=== PATIENT | male | born 1935 | race Caucasian/White ===

== ENCOUNTER → 2016-11-17 | Outpatient (CLI) | payer OTHER, MEDICARE ==
[~2016-11-17] MED LIST: ALBUAER9 INH; AMLO-110 PO; ATOR-24 PO; CLOP1TAB15 PO; CLX/20 PO; DOCU1TAB6 PO; FINA5TAB4 PO; FURO40TA3 PO; HYDR-4717 PO; LISI40TA PO; METO100T14 PO; OMEG10007 PO; PANT40TA PO; SENN-104 PO; SYMIN160 INH; TERA5CAP PO
[2016-11-17 17:02] LABS: URINE APPEARANCE CLEAR (CLEAR); URINE BILIRUBIN NEG (NEG); URINE COLOR YELLOW; URINE EPITHELIAL CELL AUTO 0-5 /lpf (0-5); URINE NITRITE NEG (NEG); URINE SPECIFIC GRAVITY 1.012 (1.000-1.030); UROBILINOGEN NEG (NEG)
[2016-11-17 17:05] LABS: MANUAL MICROSCOPIC REQUIRED? NO; REVIEW REQ? NO
[2016-11-18 05:29] LABS: ESTIMATED AVERAGE GLUCOSE 114 mg/dl; HA1C FLAG Normal (Normal)
--- NOTE | 2016-11-22 09:52 | CODING QUERY MEDICAL NECESSITY ---
SUPPORTING DIAGNOSIS NEEDED A supporting diagnosis is required for the test/procedure performed on this patient in order for us to be reimbursed by the patient's insurance. Please provide a supporting diagnosis for the following test/procedure listed below next to the test name along with your signature. *If there is no additional diagnosis for this patient that would support the following test/procedure please document that below next to the test/procedure. Test(s)/Procedure(s) that require a supporting diagnosis: * GLYCATED HEMOGLOBIN DIAGNOSIS: * DOS: 11/17/16 Provider Signature: Date: Thank you Janet Verma Health Information Management Once completed, please kindly fax back to [phone] For questions please call [phone]
== END | disposition home or self-care (01) ==
LOC: C.LABBC 14:08
PROVIDERS: ATTEND Family Medicine
DX: N50.812 Left testicular pain (principal); M79.605 Pain in left leg; R73.03 Prediabetes

== ENCOUNTER → 2016-11-18 | Outpatient (CLI) | payer OTHER, MEDICARE ==
--- NOTE | 2016-11-18 10:39 | DIAGNOSTIC IMAGING REPORT ---
TESTICULAR ULTRASOUND. CLINICAL HISTORY: Left testicular pain COMPARISON STUDY: No previous studies for comparison. FINDINGS: The right testis measures 36 x 26 x 20 mm. The left testis measures 38 x 34 x 27 mm. There is no evidence of testicular torsion. 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 There is a 6 mm right-sided epididymal cyst. There is a 4 mm left-sided epididymal cyst. There is a moderate to large left-sided hydrocele. IMPRESSION: 1. No evidence of testicular torsion 2. Moderate to large left-sided hydrocele 3. 1 cm right-sided intratesticular cyst Electronically signed by: Monty Veloz M.D. 11/18/2016 10:38 AM Dictated Date/Time: 11/18/2016 10:34 AM
== END | disposition home or self-care (01) ==
LOC: C.ULTRBC 09:35
PROVIDERS: ATTEND Family Medicine
DX: N50.812 Left testicular pain (principal); N43.3 Hydrocele, unspecified; N44.2 Benign cyst of testis

== ENCOUNTER → 2016-12-13 | Outpatient (CLI) | payer OTHER, MEDICARE ==
[~2016-12-13] MED LIST changes: +ACET-1256 PO; +CHOL100027 PO; +METO50TA16 PO; +MIRT15TA PO; +POTA20TA16 PO; +PRLSR20 PO; +PRT/20 PO; +SENN-61 PO; +TAMS0.4C38 PO; +WLL100 PO
--- NOTE | 2016-12-13 11:27 | DIAGNOSTIC IMAGING REPORT ---
CHEST 2 VIEWS ROUTINE HISTORY: SLEEP APNEA COMPARISON: Chest 10/22/2015. Chest CT 12/16/2015. FINDINGS: The heart remains mildly enlarged. Poststernotomy changes. No focal lung consolidations to suggest pneumonia. No evidence for pulmonary edema. No pleural effusions. No pneumothorax. IMPRESSION: Stable mild cardiomegaly Electronically signed by: Lalo Dunham M.D. 12/13/2016 11:26 AM Dictated Date/Time: 12/13/2016 11:23 AM
== END | disposition home or self-care (01) ==
LOC: C.RADBBURG 00:25
PROVIDERS: ATTEND Physician Assistant
DX: G47.30 Sleep apnea, unspecified (principal)

== ENCOUNTER → 2017-03-03 | Outpatient (CLI) | payer OTHER, MEDICARE ==
[~2017-03-03] MED LIST changes: +CIPR-255 PO; +METR500T PO; +OXYC-57 PO
[2017-03-03 15:01] LABS: CHOLESTEROL/HDL RATIO 6.4
== END | disposition home or self-care (01) ==
LOC: C.LAB1850 12:28
PROVIDERS: ATTEND Internal Medicine Cardiovascular Disease
DX: E78.00 Pure hypercholesterolemia, unspecified (principal)

== ENCOUNTER 2017-08-15 21:00 | Emergency (ER) | payer OTHER, MEDICARE ==
[~2017-08-15] VITALS: Ht 177.8 cm; Wt 109.7 kg
[~2017-08-15 21:00] MED LIST changes: -ACET-1256 PO; -CHOL100027 PO; -CIPR-255 PO; -METO50TA16 PO; -METR500T PO; -MIRT15TA PO; -OXYC-57 PO; -POTA20TA16 PO; -PRLSR20 PO; -PRT/20 PO; -SENN-61 PO; -TAMS0.4C38 PO; -WLL100 PO
[2017-08-15 21:14] VITALS: TEMP 37.3; Ht 177.8 cm; Wt 109.7 kg
[2017-08-15 22:12] LABS: BASO % 0.4 %; BASO ABS # 0.05 K/uL (0-0.2); COMPLETE YES; EOS % 2.1 %; HEMATOCRIT 34.9 % (42-52); IG% 0.3 %; LYMPH % 18.3 %; LYMPH ABS # 2.29 K/uL (1.2-3.4); MEAN CELL VOLUME 89.5 fL (80-100); MEAN CORPUSCULAR HEMOGLOBIN 29.5 pg (25-34); MEAN PLATELET VOLUME 9.2 fL (7.4-10.4); MONO % 13.9 %; PLATELET COUNT 264 K/uL (130-400); WHITE BLOOD COUNT 12.52 K/uL (4.8-10.8)
[2017-08-15 22:30] LABS: BUN/CREATININE RATIO 13.4 (10-20); CREATININE 1.53 mg/dl (0.60-1.40); POTASSIUM 3.6 mmol/L (3.5-5.1)
[2017-08-15 22:43] LABS: MANUAL MICROSCOPIC REQUIRED? NO; REVIEW REQ? NO; URINE APPEARANCE CLOUDY (CLEAR); URINE BILIRUBIN NEG (NEG); URINE COLOR YELLOW; URINE NITRITE NEG (NEG); URINE SPECIFIC GRAVITY 1.029 (1.000-1.030); UROBILINOGEN NEG (NEG); ZZUR CULT IF INDIC CLEAN CATCH NO
[2017-08-15] MEDS ORDERED: PRT/20 PO (23:21)
[2017-08-15] MEDS ORDERED: METO50TA16 PO (23:21)
[2017-08-15] MEDS ORDERED: TAMS0.4C38 PO (23:21)
[2017-08-15] MEDS ORDERED: SENN-61 PO (23:23)
[2017-08-15] MEDS ORDERED: WLL100 PO (23:23)
[2017-08-15] MEDS ORDERED: PRLSR20 PO (23:23)
[2017-08-15] MEDS ORDERED: MIRT15TA PO (23:23)
[2017-08-15] MEDS ORDERED: CHOL100027 PO (23:23)
--- NOTE | 2017-08-15 23:52 | EMERGENCY ROOM VISIT NOTE ---
History Report prepared by Rachelleibverenice: Amilcar Hughes Under the Supervision of: Dr. Ammon Jones D.O. First contact with patient: 21:41 Chief Complaint: URINARY SYMPTOMS Stated Complaint: CANT PEE (IS RED),FEVER,HEMORRHOIDS Nursing Triage Summary: Pt states that he was unable to urinate last evening. Pt woke up this morning and his urine was a dark orange color. Pt does have an enlarged prostate. Pt states that when he tries to urinate he is unable to and if he starts he feels that he is retaining History of Present Illness The patient is a 81 year old male who presents to the Emergency Room with complaints of persistent inability to urinate. He was unable to urinate last night, and has only been able to urinate a very small amount today. He also complains of orange colored urine with the urine he was able to produce. The patient has a history of enlarged prostate. He notes that he has a history of a hemorrhoid, but denies any problems with diarrhea or constipation. Source of History: patient Onset: Last night Quality: other (inability to urinate) Timing: other (persistent) Associated Symptoms: + urinary symptoms (orange colored urine), No diarrhea Note: The patient denies constipation. Review of Systems See HPI for pertinent positives and negatives. A total of ten systems were reviewed and were otherwise negative. Past Medical & Surgical Medical Problems: (1) Asthma (2) Benign hypertension (3) Chest Pain Nec (4) Congestive heart failure (CHF) (5) Coron Atheroscler Nos Type Vessel, Kiana Or Graft (6) Coronary artery disease (7) CVA (8) Diabetes mellitus (9) Heart attack (10) Hernia repair (11) Hypertension Nos (12) Low back surgery (13) Myocardial infarction (14) Right upper lobe pneumonia (15) Stroke Surgical Problems: (1) Hx of CABG Family History Cancer Diabetes mellitus Heart disease Hypertension Kidney disease Stroke Social History Smoking Status: Never Smoker Alcohol Use: none Drug Use: none Marital Status: Housing Status: lives with significant other Occupation Status: retired Current/Historical Medications Scheduled Amlodipine (Norvasc), 5 MG PO BID Atorvastatin (Lipitor), 40 MG PO HS Bupropion HCl (Bupropion HCl), 100 MG PO DAILY Cholecalciferol (Vitamin D 1000 Unit), 1,000 INTER.UNIT PO DAILY Clopidogrel (Plavix), 75 MG PO DAILY Docusate Sodium (Docusate Sodium), 100 MG PO BID Finasteride (Proscar), 5 MG PO QPM Furosemide (Lasix), 40 MG PO QAM Hydralazine Hcl (Apresoline), 50 MG PO TID Lisinopril (Zestril), 40 MG PO HS Metoprolol Tartrate (Lopressor) (Lopressor), 50 MG PO BID Mirtazapine (Remeron), 15 MG PO HS Omeprazole (Prilosec), 20 MG PO DAILY Senna (Senokot), 1 TAB PO HS Tamsulosin Hcl (Flomax), 0.4 MG PO DAILY Allergies Coded Allergies: Statins (Verified Allergy, Unknown, UNKNOWN, PER DR. MARINELLI, 08/15/17) Sulfacetamide (Verified Allergy, Unknown, swelling, 08/15/17) opthalmic soln. Ibuprofen (Verified Adverse Reaction, Intermediate, HTN, 08/15/17) Physical Exam Vital Signs Date Time Temp Pulse Resp B/P (MAP) Pulse Ox O2 Delivery O2 Flow Rate FiO2 08/15/17 21:59 84 08/15/17 21:14 37.3 83 18 187/81 92 Room Air Physical Exam GENERAL: Awake, alert, well-appearing, in no distress HENT: Normocephalic, atraumatic. Oropharynx unremarkable. EYES: Normal conjunctiva. Sclera non-icteric. NECK: Supple. No nuchal rigidity. FROM. No JVD. RESPIRATORY: Clear to auscultation. CARDIAC: Regular rate, normal rhythm. Extremities warm and well perfused. Pulses equal. ABDOMEN: Soft, with no palpable distension in the suprapubic region. No tenderness to palpation. No rebound or guarding. No masses. RECTAL: Deferred. MUSCULOSKELETAL: Chest examination reveals no tenderness. The back is symmetrical on inspection without obvious abnormality. There is no CVA tenderness to palpation. No joint edema. LOWER EXTREMITIES: Calves are equal size bilaterally and non-tender. No edema. No discoloration. NEURO: Normal sensorium. No sensory or motor deficits noted. SKIN: No rash or jaundice noted. Medical Decision & Procedures Laboratory Results 08/15/17 22:00 Red Blood Count 3.90, Mean Corpuscular Volume 89.5, Mean Corpuscular Hemoglobin 29.5, Mean Corpuscular Hemoglobin Concent 33.0, Mean Platelet Volume 9.2, Neutrophils (%) (Auto) 65.0, Lymphocytes (%) (Auto) 18.3, Monocytes (%) (Auto) 13.9, Eosinophils (%) (Auto) 2.1, Basophils (%) (Auto) 0.4, Neutrophils # (Auto ) 8.14, Lymphocytes # (Auto) 2.29, Monocytes # (Auto) 1.74, Eosinophils # (Auto ) 0.26, Basophils # (Auto) 0.05 08/15/17 22:00 Test 08/15/17 22:00 08/15/17 22:31 White Blood Count 12.52 K/uL (4.8-10.8) Red Blood Count 3.90 M/uL (4.7-6.1) Hemoglobin 11.5 g/dL (14.0-18.0) Hematocrit 34.9 % (42-52) Mean Corpuscular Volume 89.5 fL (80-100) Mean Corpuscular Hemoglobin 29.5 pg (25-34) Mean Corpuscular Hemoglobin Concent 33.0 g/dl (32-36) Platelet Count 264 K/uL (130-400) Mean Platelet Volume 9.2 fL (7.4-10.4) Neutrophils (%) (Auto) 65.0 % Lymphocytes (%) (Auto) 18.3 % Monocytes (%) (Auto) 13.9 % Eosinophils (%) (Auto) 2.1 % Basophils (%) (Auto) 0.4 % Neutrophils # (Auto) 8.14 K/uL (1.4-6.5) Lymphocytes # (Auto) 2.29 K/uL (1.2-3.4) Monocytes # (Auto) 1.74 K/uL (0.11-0.59) Eosinophils # (Auto) 0.26 K/uL (0-0.5) Basophils # (Auto) 0.05 K/uL (0-0.2) RDW Standard Deviation 43.8 fL (36.4-46.3) RDW Coefficient of Variation 13.4 % (11.5-14.5) Immature Granulocyte % (Auto) 0.3 % Immature Granulocyte # (Auto) 0.04 K/uL (0.00-0.02) Anion Gap 7.0 mmol/L (3-11) Est Creatinine Clear Calc Drug Dose 48.6 ml/min Estimated GFR () 49.4 Estimated GFR (Non- 42.6 BUN/Creatinine Ratio 13.4 (10-20) Calcium Level 9.0 mg/dl (8.5-10.1) Total Bilirubin 0.6 mg/dl (0.2-1) Direct Bilirubin 0.2 mg/dl (0-0.2) Aspartate Amino Transf (AST/SGOT) 17 U/L (15-37) Alanine Aminotransferase (ALT/SGPT) 37 U/L (12-78) Alkaline Phosphatase 99 U/L (45-117) Total Protein 7.6 gm/dl (6.4-8.2) Albumin 3.2 gm/dl (3.4-5.0) Urine Color YELLOW Urine Appearance CLOUDY (CLEAR) Urine pH 5.0 (4.5-7.5) Urine Specific [place] 1.029 (1.000-1.030) Urine Protein 1+ (NEG) Urine Glucose (UA) 3+ (NEG) Urine Ketones TRACE (NEG) Urine Occult Blood NEG (NEG) Urine Nitrite NEG (NEG) Urine Bilirubin NEG (NEG) Urine Urobilinogen NEG (NEG) Urine Leukocyte Esterase NEG (NEG) Urine WBC (Auto) 1-5 /hpf (0-5) Urine RBC (Auto) 0-4 /hpf (0-4) Urine Hyaline Casts (Auto) 1-5 /lpf (0-5) Urine Epithelial Cells (Auto) 10-20 /lpf (0-5) Urine Bacteria (Auto) NEG (NEG) Laboratory results reviewed by ak ED Course 2145: The patient was evaluated in room A12B. A complete history and physical exam was performed. 2345: I reevaluated the patient. Discussed results and discharge instructions: he verbalized understanding and agreement. The patient is ready for discharge. Medical Decision Differential diagnoses include but are not limited to; urinary retention, UTI, renal insufficiency, prostate problems. Patient had 600 mL's of urine out after Be was placed. Patient urinalysis did not reveal infection patient has no significant increase in creatinine has a normal white blood cell count. I have given the patient a choice of bleeding Be catheter remain or discharge in the catheter he will like to try it out. Instructed to follow-up with primary care physician and potential referral to urology. Answered all questions for the patient and the patient's family at bedside Medication Reconcilliation Current Medication List: was personally reviewed by me Blood Pressure Screening Patient's blood pressure: Elevated blood pressure Blood pressure disposition: Referred to PCP Impression Primary Impression: Urinary retention Scribe Attestation The scribe's documentation has been prepared under my direction and personally reviewed by me in its entirety. I confirm that the note above accurately reflects all work, treatment, procedures, and medical decision making performed by me. Departure Information Dispostion Home / Self-Care Referrals No Doctor, Assigned (PCP) Patient Instructions ED Retention Urinary Male, My [facility]
[2017-08-16 00:13] VITALS: BP 164/84; PULSE 81; O2SAT 94
[2017-08-16] MEDS ORDERED: ACET-1256 PO (17:39)
[2017-08-16] MEDS ORDERED: POTA20TA16 PO (17:39)
[2017-08-16] MEDS ORDERED: SENN-61 PO (17:39)
== END 2017-08-16 00:15 | disposition home or self-care (01) ==
LOC: C.EDB 21:01 → C.EDA 08-16 00:15
DX: R33.9 Retention of urine, unspecified (principal); I11.0 Hypertensive heart disease with heart failure; I50.9 Heart failure, unspecified; J45.909 Unspecified asthma, uncomplicated; I25.10 Atherosclerotic heart disease of native coronary artery without angina pectoris; E11.9 Type 2 diabetes mellitus without complications; I25.2 Old myocardial infarction; Z86.73 Personal history of transient ischemic attack (TIA), and cerebral infarction without residual deficits; Z87.01 Personal history of pneumonia (recurrent); Z95.1 Presence of aortocoronary bypass graft; Z83.3 Family history of diabetes mellitus; Z82.49 Family history of ischemic heart disease and other diseases of the circulatory system; Z84.1 Family history of disorders of kidney and ureter; Z82.3 Family history of stroke

== ENCOUNTER 2017-08-16 15:59 | Observation (INO) | payer OTHER, MEDICARE ==
[~2017-08-16] VITALS: Ht 175.3 cm; Wt 109.5 kg
[~2017-08-16 15:59] MED LIST changes: -ALBUAER9 INH; +CHOL100027 PO; -CLX/20 PO; -METO100T14 PO; +METO50TA16 PO; +MIRT15TA PO; -OMEG10007 PO; -PANT40TA PO; +PRLSR20 PO; -SENN-104 PO; +SENN-61 PO; -SYMIN160 INH; +TAMS0.4C38 PO; -TERA5CAP PO; +WLL100 PO
[2017-08-16] MEDS ORDERED: LIDOCAINE HCL 2% JELLY 30 ML TUBE EXT ONE (17:15)
[2017-08-16 17:36] LABS: BASO % 0.4 %; BASO ABS # 0.05 K/uL (0-0.2); COMPLETE YES; EOS % 1.2 %; HEMATOCRIT 35.7 % (42-52); IG% 0.4 %; LYMPH % 14.2 %; LYMPH ABS # 1.93 K/uL (1.2-3.4); MEAN CELL VOLUME 88.8 fL (80-100); MEAN CORPUSCULAR HEMOGLOBIN 29.9 pg (25-34); MEAN CORPUSCULAR HGB CONC 33.6 g/dl (32-36); MEAN PLATELET VOLUME 9.1 fL (7.4-10.4); MONO % 10.9 %; NEUT % 72.9 %; PLATELET COUNT 276 K/uL (130-400); RED BLOOD COUNT 4.02 M/uL (4.7-6.1); WHITE BLOOD COUNT 13.61 K/uL (4.8-10.8)
[2017-08-16] MEDS ORDERED: POTA20TA16 PO (17:39)
[2017-08-16] MEDS ORDERED: ACET-1256 PO (17:39)
[2017-08-16] MEDS ORDERED: SENN-61 PO (17:39)
[2017-08-16 17:53] LABS: BUN/CREATININE RATIO 13.1 (10-20); CALCIUM 9.3 mg/dl (8.5-10.1); CREATININE 1.35 mg/dl (0.60-1.40); POTASSIUM 3.6 mmol/L (3.5-5.1)
[2017-08-16 17:56] LABS: ALB/GLOB RATIO 0.7 (0.9-2)
[2017-08-16 18:05] LABS: URINE APPEARANCE CLEAR (CLEAR); URINE BILIRUBIN NEG (NEG); URINE COLOR YELLOW; URINE EPITHELIAL CELL AUTO 0-5 /lpf (0-5); URINE NITRITE NEG (NEG); URINE SPECIFIC GRAVITY 1.024 (1.000-1.030); UROBILINOGEN NEG (NEG)
[2017-08-16 18:21] LABS: MANUAL MICROSCOPIC REQUIRED? NO; REVIEW REQ? NO
--- NOTE | 2017-08-16 18:59 | EMERGENCY ROOM VISIT NOTE ---
History First contact with patient: 16:48 Chief Complaint: URINARY SYMPTOMS Stated Complaint: UNABLE TO URINATE Nursing Triage Summary: patient was seen last evening for inablitiy to void and cathed. lewis discontinued and sent home. now unable to void again and has fever History of Present Illness The patient is a 81 year old male who presents to the Emergency Room with complaints of urinary retention. He was seen yesterday evening for the same complaint and elected for a straight catheter rather than a lewis. However he has only managed to pass 125ml of urine since discharge despite drinking lots of fluid and taking his Lasix. After the straight cath he has now been having painful urination. He denies any blood in urine, change in color or smell. He denies any suprapubic pain or distension. He thinks he has been on tamsulosin for many years but is unsure what prostate problems he has had before in the past. He does have back pain but this appears to have been present for the past 2 months. Over the past 2 weeks it has been harder to pass urine. He has been having fevers/chills for the past 4 days. He denies any family history of prostate cancer or personal history of diverticulitis before in the past. Review of Systems He denies any abdominal pain, nausea, vomiting or diarrhea. He has been having increasing hard stool with some straining over months and has hemorrhoids (pain on defecation) which he has been using preparation H. He has found it difficult to sit down without it being painful. 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 (6) Coronary artery disease (7) CVA (8) Diabetes mellitus (9) Heart attack (10) Hernia repair (11) Hypertension Nos (12) Low back surgery (13) Myocardial infarction (14) Right upper lobe pneumonia (15) Stroke Surgical Problems: (1) Hx of CABG Family History Cancer Diabetes mellitus Heart disease Hypertension Kidney disease Stroke Social History Smoking Status: Never Smoker Alcohol Use: none Drug Use: none Marital Status: Housing Status: lives with significant other Occupation Status: retired Current/Historical Medications Scheduled Acetaminophen (Tylenol), 1,000 MG PO QAM Amlodipine (Norvasc), 5 MG PO BID Atorvastatin (Lipitor), 40 MG PO Q2D Bupropion HCl (Bupropion HCl), 100 MG PO DAILY Cholecalciferol (Vitamin D 1000 Unit), 1,000 INTER.UNIT PO DAILY Clopidogrel (Plavix), 75 MG PO DAILY Docusate Sodium (Docusate Sodium), 100 MG PO BID Finasteride (Proscar), 5 MG PO QPM Furosemide (Lasix), 40 MG PO QAM Hydralazine Hcl (Apresoline), 50 MG PO TID Lisinopril (Zestril), 40 MG PO HS Metoprolol Tartrate (Lopressor) (Lopressor), 50 MG PO BID Mirtazapine (Remeron), 15 MG PO HS Omeprazole (Prilosec), 20 MG PO DAILY Potassium Ext Rel (Klor-Con), 20 MEQ PO DAILY Senna (Senokot), 1 TAB PO HS Senna (Senokot), 17.2 MG PO DAILY Tamsulosin Hcl (Flomax), 0.4 MG PO DAILY Physical Exam Vital Signs Date Time Temp Pulse Resp B/P (MAP) Pulse Ox O2 Delivery O2 Flow Rate FiO2 08/16/17 21:41 87 18 164/71 94 08/16/17 21:32 37.3 87 18 164/71 94 Room Air 08/16/17 20:57 89 18 160/75 93 Room Air 08/16/17 19:00 38.6 80 20 180/75 95 Room Air 08/16/17 16:11 37.6 87 20 208/76 98 Room Air Physical Exam General Appearance: WD/WN, no apparent distress, + obese Head: normocephalic, atraumatic Eyes: normal inspection, PERRL, EOMI ENT: pharynx normal (moist mucus membranes) Neck: supple, no JVD (difficult to assess given neck size), trachea midline Respiratory/Chest: chest non-tender, lungs clear, normal breath sounds, no respiratory distress, no accessory muscle use Cardiovascular: regular rate, rhythm, no edema, no murmur, normal peripheral pulses Abdomen / GI: normal bowel sounds, non tender (obese but non distended), soft, + pertinent finding (Prostate examination performed with verbal consent, RN as chapmerrill, before patient had a CT scan, external skin tags present, no external hemorrhoids, non painful examination, base of prostate only palpated which was non tender, after CT results were available fluctuant mass on left buttocks was paindul to light palpation, surrounding dark warm skin) Genitourinary - Male: + pertinent finding (large hernia in testicle noted, non tender on palpation, patient reports chronic for years) Back: no CVA tenderness Extremities: no calf tenderness, normal capillary refill, no pedal edema Neurologic/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 Perianal abscess. FINDINGS: 2 AP, portable, upright chest radiographs are compared to study dated 12/13/2016 and correlated with chest CT dated 12/16/2015. The examination is degraded by portable technique, apical lordotic positioning, and patient rotation. The patient is status post midline sternotomy. The heart is enlarged and there is atherosclerotic calcification of the thoracic aorta. The pulmonary vasculature is noncongested. Trace fluid is suggested along the fissures. No large pleural effusion is identified and there is no airspace consolidation typical for pneumonia. Atelectasis is seen at the left lung base. No pneumothorax is seen. The skeletal structures are osteopenic. Advanced degenerative change is seen in the shoulders and thoracic spine. IMPRESSION: 1. Cardiomegaly without radiographic evidence of congestive failure. 2. No airspace consolidation is identified typical for pneumonia there is no large pleural effusion. Electronically signed by: Lukas Sun M.D. 08/16/2017 9:44 PM Dictated Date/Time: 08/16/2017 9:[address] SCAN OF THE ABDOMEN AND PELVIS WITHOUT IV CONTRAST CLINICAL HISTORY: Fever. Urinary retention. COMPARISON STUDY: Abdominal CT dated 04/28/2013. TECHNIQUE: CT scan of the abdomen and pelvis is performed from the lung bases to the proximal femora. Images are reviewed in the axial, sagittal, and coronal planes. IV contrast was not administered for this examination as per the referring clinician. Note that the examination was performed in suboptimal fashion without oral and IV contrast. A dose lowering technique was utilized adhering to the principles of ALARA. CT DOSE: 2225.64 mGycm FINDINGS: Lung bases: The patient is status post midline sternotomy. The heart is normal in size and without pericardial effusion. There are coronary artery calcifications. There is no airspace consolidation or pleural effusion. Numerous calcified granulomas are seen at the lung bases. There are foci of bibasilar scarring versus atelectasis. A small hiatal hernia is identified. Liver: The unenhanced liver is normal in size, contour, and attenuation. There is no intrahepatic biliary ductal dilatation. Gallbladder: Unremarkable. Spleen: Normal in size and attenuation. Pancreas: The unenhanced pancreas is atrophic and grossly unremarkable. Adrenal glands: Unremarkable. Kidneys: The unenhanced kidneys are atrophic and without hydronephrosis. There are no renal calculi identified. There is no evidence of contour deforming renal mass lesion. Abdominal vasculature: The abdominal aorta is normal in course and caliber noting advanced atherosclerotic calcification. Bowel: The small bowel and colon are normal in course and caliber. The appendix is well-visualized and normal. Peritoneum: There is no intraperitoneal free air or abdominal ascites. There is a small fat-containing umbilical hernia. Lymphadenopathy: None. Pelvic viscera: The prostate gland is normal in size, measuring 4.5 cm in transverse diameter. The bladder is decompressed around a Lewis catheter and not well evaluated. Foci of intraluminal gas are likely related to instrumentation. There is a small fat-containing left inguinal hernia. There is an approximately 4 x 2 cm left perianal fluid collection identified, best seen on axial image #494. This extends from the 1:00 to the 6:00 positions, and likely represents an abscess. Surrounding inflammatory change likely represents cellulitis. No definite fistulous tract is identified. Skeletal structures: The skeletal structures are osteopenic. There is mild to moderate lumbosacral spondylosis. No lytic or blastic lesions are seen. IMPRESSION: 1. Suboptimal examination without oral and IV contrast. 2. There is an approximately 4 x 2 cm left sided perianal fluid collection typical in appearance for perianal abscess. Mild overlying inflammatory change likely represents cellulitis. 3. No acute infectious or inflammatory findings are seen in the abdomen. 4. Additional findings as above. Electronically signed by: Lukas Sun M.D. 08/16/2017 7:51 PM Dictated Date/Time: 08/16/2017 7:44 PM Laboratory Results 08/16/17 17:20 Red Blood Count 4.02, Mean Corpuscular Volume 88.8, Mean Corpuscular Hemoglobin 29.9, Mean Corpuscular Hemoglobin Concent 33.6, Mean Platelet Volume 9.1, Neutrophils (%) (Auto) 72.9, Lymphocytes (%) (Auto) 14.2, Monocytes (%) (Auto) 10.9, Eosinophils (%) (Auto) 1.2, Basophils (%) (Auto) 0.4, Neutrophils # (Auto ) 9.91, Lymphocytes # (Auto) 1.93, Monocytes # (Auto) 1.49, Eosinophils # (Auto ) 0.17, Basophils # (Auto) 0.05 08/16/17 17:20 Test 08/16/17 17:20 08/16/17 17:35 08/16/17 21:08 White Blood Count 13.61 K/uL (4.8-10.8) Red Blood Count 4.02 M/uL (4.7-6.1) Hemoglobin 12.0 g/dL (14.0-18.0) Hematocrit 35.7 % (42-52) Mean Corpuscular Volume 88.8 fL (80-100) Mean Corpuscular Hemoglobin 29.9 pg (25-34) Mean Corpuscular Hemoglobin Concent 33.6 g/dl (32-36) Platelet Count 276 K/uL (130-400) Mean Platelet Volume 9.1 fL (7.4-10.4) Neutrophils (%) (Auto) 72.9 % Lymphocytes (%) (Auto) 14.2 % Monocytes (%) (Auto) 10.9 % Eosinophils (%) (Auto) 1.2 % Basophils (%) (Auto) 0.4 % Neutrophils # (Auto) 9.91 K/uL (1.4-6.5) Lymphocytes # (Auto) 1.93 K/uL (1.2-3.4) Monocytes # (Auto) 1.49 K/uL (0.11-0.59) Eosinophils # (Auto) 0.17 K/uL (0-0.5) Basophils # (Auto) 0.05 K/uL (0-0.2) RDW Standard Deviation 42.6 fL (36.4-46.3) RDW Coefficient of Variation 13.1 % (11.5-14.5) Immature Granulocyte % (Auto) 0.4 % Immature Granulocyte # (Auto) 0.06 K/uL (0.00-0.02) Anion Gap 7.0 mmol/L (3-11) Est Creatinine Clear Calc Drug Dose 54.8 ml/min Estimated GFR () 57.5 Estimated GFR (Non- 49.6 BUN/Creatinine Ratio 13.1 (10-20) Calcium Level 9.3 mg/dl (8.5-10.1) Total Bilirubin 1.0 mg/dl (0.2-1) Aspartate Amino Transf (AST/SGOT) 23 U/L (15-37) Alanine Aminotransferase (ALT/SGPT) 42 U/L (12-78) Alkaline Phosphatase 102 U/L (45-117) Total Protein 8.2 gm/dl (6.4-8.2) Albumin 3.5 gm/dl (3.4-5.0) Globulin 4.7 gm/dl (2.5-4.0) Albumin/Globulin Ratio 0.7 (0.9-2) Urine Color YELLOW Urine Appearance CLEAR (CLEAR) Urine pH 5.0 (4.5-7.5) Urine Specific [place] 1.024 (1.000-1.030) Urine Protein 1+ (NEG) Urine Glucose (UA) 1+ (NEG) Urine Ketones NEG (NEG) Urine Occult Blood NEG (NEG) Urine Nitrite NEG (NEG) Urine Bilirubin NEG (NEG) Urine Urobilinogen NEG (NEG) Urine Leukocyte Esterase NEG (NEG) Urine WBC (Auto) 1-5 /hpf (0-5) Urine RBC (Auto) 0-4 /hpf (0-4) Urine Hyaline Casts (Auto) 1-5 /lpf (0-5) Urine Epithelial Cells (Auto) 0-5 /lpf (0-5) Urine Bacteria (Auto) NEG (NEG) Lactic Acid Level 0.8 mmol/L (0.4-2.0) Medications Administered Medications (Trade) Dose Ordered Sig/[place] Route Start Time Stop Time Status Last Admin Dose Admin Lidocaine HCl (Xylocaine Jelly 2%) 5 ml NOW ONCE EXT 08/16/17 17:15 08/16/17 17:16 DC 08/16/17 17:41 5 ML Acetaminophen (Tylenol Tab) 650 mg NOW STAT PO 08/16/17 19:02 08/16/17 19:04 DC 08/16/17 19:16 650 MG Ciprofloxacin/ Dextrose (Cipro / D5W) 400 mg NOW STAT IV 08/16/17 19:02 08/16/17 19:04 DC 08/16/17 19:16 400 MG Sodium Chloride 500 ml @ 999 mls/hr Q31M STAT IV 08/16/17 19:04 08/16/17 19:34 DC 08/16/17 19:15 999 MLS/HR Metronidazole (Flagyl / Nss) 500 mg NOW STAT IV 08/16/17 20:18 08/16/17 20:19 DC 08/16/17 21:21 500 MG Sodium Chloride 1,000 ml @ 100 mls/hr Q10H IV 08/16/17 21:00 09/15/17 20:59 08/16/17 21:21 100 MLS/HR ECG Indication: other (fever, pre-op, Hx CABG) Rate (beats per minute): 84 Rhythm: normal sinus Findings: no acute ischemic change Comparison ECG Date: 03 September 2015 Change: No longer having inverted T waves in inferior leads ED Course 16:52 Complete history and physical was performed by myself. 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 Triage Nursing notes reviewed. Additional history obtained from patient, and daughter. The patient's history was concerning for urinary retention Differential diagnosis: Etiologies such as sepsis, UTI, prostatitis, prostate cancer, BPH, pyelonephritis as well as others were entertained. Physical examination: As above. Pertinent findings were perianal pain present on left part of his anus. Vital signs reviewed and revealed mildly elevated temperature and hypertension. ER treatment provided: IV fluid resuscitation with Normal saline solution, 500 mL bolus - due to history of CHF with previous admissions for this, he was not tachycardic therefore did not feel a need to load with multiple liters to avoid pulmonary edema IV fluid hydration with Normal saline solution at 100 mL/hr. Urine cultures were obtained. Blood cultures were not obtained as he did not have a significant temperature on admission Antibiotics: Initially treated with ciprofloxacin for possible urinary source, however after CT results showing perianal abscess metronidazole was added Diagnostics interpretation by me: ECG: as above, ischemic changes previously have now resolved The labs revealed elevated WBC on CBC. Chemistry panel revealed stable Cr and BUN, mild hyponatremia Serum Lactate measurement was 0.8. Imaging studies: Chest xray was performed for pre-op given Hx of pulmonary edema and showed no active disease in the chest. The patient was initially felt to be a non complex case of urinary retention secondary to prostate enlargement. He had failed outpatient treatment after receiving a straight cath performed in the ER the night before. Lewis catheter was ordered on arrival and 1.2 L of urine was initially obtained. He did not have CVA tenderness, his UA was unremarkable however his WBC had been increasing. Prostate exam did not establish any tenderness, although only the base of his prostate could be palpated. Plan was for potential discharge with urine culture ordered still expecting a urine or prostatic source of infection. However he then had a significant temperature in the ER with rigors and therefore decision was to get a CT for stones to rule out pyelonephritis or other source of infection. This showed a perianal abscess. Therefore surgery were consulted and lactic acid was obtained. His care was discussed with Dr Tavarez after his consultation and plan is to go straight to the OR for I&D. Consultation: A consultation was initially placed with [place] [facility] [place] (Dr Paz[place] before the CT was performed. On return of the CT results Surgery was consulted Dr Tavarez who evaluated the patient in the ER and consented the patient for surgery. Dr Tavarez asked for the medicine team to admit the patient under their service therefore he was referred back to [facility] [place] (Dr Paz) for admission. The patient will be taken straight from the ER to the OR for I&D of the abscess. Medication Reconcilliation Current Medication List: was personally reviewed by me Blood Pressure Screening Patient's blood pressure: Elevated blood pressure referred to specialist Impression Primary Impression: Perianal abscess Departure Information Dispostion Being Evaluated By Surgeon Condition FAIR Referrals Дмитрий Shah M.D. (PCP) Patient Instructions My [facility] Resident Tracking Resident Involvement: Resident Care Provided Care Provided: Adult ED
[2017-08-16] MEDS ORDERED: ACETAMINOPHEN 325 MG TAB PO STA (19:02)
[2017-08-16] MEDS ORDERED: CIPROFLOXACIN 400MG / 200ML D5W IV STA (19:02)
[2017-08-16] MEDS ORDERED: SODIUM CHLORIDE 0.9% 500ML 500 ML IV STA (19:04)
--- NOTE | 2017-08-16 19:53 | DIAGNOSTIC IMAGING REPORT ---
CT SCAN OF THE ABDOMEN AND PELVIS WITHOUT IV CONTRAST CLINICAL HISTORY: Fever. Urinary retention. COMPARISON STUDY: Abdominal CT dated 04/28/2013. TECHNIQUE: CT scan of the abdomen and pelvis is performed from the lung bases to the proximal femora. Images are reviewed in the axial, sagittal, and coronal planes. IV contrast was not administered for this examination as per the referring clinician. Note that the examination was performed in suboptimal fashion without oral and IV contrast. A dose lowering technique was utilized adhering to the principles of ALARA. CT DOSE: 2225.64 mGycm FINDINGS: Lung bases: The patient is status post midline sternotomy. The heart is normal in size and without pericardial effusion. There are coronary artery calcifications. There is no airspace consolidation or pleural effusion. Numerous calcified granulomas are seen at the lung bases. There are foci of bibasilar scarring versus atelectasis. A small hiatal hernia is identified. Liver: The unenhanced liver is normal in size, contour, and attenuation. There is no intrahepatic biliary ductal dilatation. Gallbladder: Unremarkable. Spleen: Normal in size and attenuation. Pancreas: The unenhanced pancreas is atrophic and grossly unremarkable. Adrenal glands: Unremarkable. Kidneys: The unenhanced kidneys are atrophic and without hydronephrosis. There are no renal calculi identified. There is no evidence of contour deforming renal mass lesion. Abdominal vasculature: The abdominal aorta is normal in course and caliber noting advanced atherosclerotic calcification. Bowel: The small bowel and colon are normal in course and caliber. The appendix is well-visualized and normal. Peritoneum: There is no intraperitoneal free air or abdominal ascites. There is a small fat-containing umbilical hernia. Lymphadenopathy: None. Pelvic viscera: The prostate gland is normal in size, measuring 4.5 cm in transverse diameter. The bladder is decompressed around a Be catheter and not well evaluated. Foci of intraluminal gas are likely related to instrumentation. There is a small fat-containing left inguinal hernia. There is an approximately 4 x 2 cm left perianal fluid collection identified, best seen on axial image #494. This extends from the 1:00 to the 6:00 positions, and likely represents an abscess. Surrounding inflammatory change likely represents cellulitis. No definite fistulous tract is identified. Skeletal structures: The skeletal structures are osteopenic. There is mild to moderate lumbosacral spondylosis. No lytic or blastic lesions are seen. IMPRESSION: 1. Suboptimal examination without oral and IV contrast. 2. There is an approximately 4 x 2 cm left sided perianal fluid collection typical in appearance for perianal abscess. Mild overlying inflammatory change likely represents cellulitis. 3. No acute infectious or inflammatory findings are seen in the abdomen. 4. Additional findings as above. Electronically signed by: Lukas Sun M.D. 08/16/2017 7:51 PM Dictated Date/Time: 08/16/2017 7:44 PM
[2017-08-16] MEDS ORDERED: METRONIDAZOLE 500MG / 100ML NSS IV STA (20:18)
[2017-08-16] MEDS ORDERED: SODIUM CHLORIDE 0.9% 1000ML 1,000 ML IV SCH (21:00)
[2017-08-16] MEDS ORDERED: BUPIVACAINE/EPINEPHRINE 0.5% MPF 1:200,000 30 ML VIAL ONE (21:19)
--- NOTE | 2017-08-16 21:25 | Surgery Consultation ---
Consultation Date of Consultation: Aug 16, 2017. Attending Physician: History of Present Illness The patient is a 81 year old male who presents to the Emergency Room with complaints of urinary retention. He was here last evening for the same complaint and elected for a straight catheter. He thinks he has been on tamsulosin for many years but is unsure what prostate problems he has had before in the past. He does have back pain but this appears to have been present for the past 2 months. Over the past 2 weeks it has been harder to pass urine. He has been having fevers/chills for the past 4 days. He denies any family history of prostate cancer or personal history of diverticulitis before in the past. I saw pt at ER, pt is still have left perirectal pain with fever, 38.6, pt denies diarrhea, no abdominal pain, Past Medical/Surgical History Medical Problems: (1) Hypoxia Status: Acute (2) Pneumonia Status: Acute (3) Pulmonary edema Status: Acute (4) Urinary retention Status: Acute Family History Cancer Diabetes mellitus Heart disease Hypertension Kidney disease Stroke Social History Smoking Status: Never Smoker Smokeless Tobacco Use: No Alcohol Use: none Drug Use: none Marital Status: Housing Status: lives with significant other Occupation Status: retired Allergies Coded Allergies: Statins (Verified Allergy, Unknown, UNKNOWN, PER DR. MARINELLI, 08/16/17) Sulfacetamide (Verified Allergy, Unknown, swelling, 08/16/17) opthalmic soln. Ibuprofen (Verified Adverse Reaction, Intermediate, HTN, 08/16/17) Home Medications Scheduled Acetaminophen (Tylenol), 1,000 MG PO QAM Amlodipine (Norvasc), 5 MG PO BID Atorvastatin (Lipitor), 40 MG PO Q2D Bupropion HCl (Bupropion HCl), 100 MG PO DAILY Cholecalciferol (Vitamin D 1000 Unit), 1,000 INTER.UNIT PO DAILY Clopidogrel (Plavix), 75 MG PO DAILY Docusate Sodium (Docusate Sodium), 100 MG PO BID Finasteride (Proscar), 5 MG PO QPM Furosemide (Lasix), 40 MG PO QAM Hydralazine Hcl (Apresoline), 50 MG PO TID Lisinopril (Zestril), 40 MG PO HS Metoprolol Tartrate (Lopressor) (Lopressor), 50 MG PO BID Mirtazapine (Remeron), 15 MG PO HS Omeprazole (Prilosec), 20 MG PO DAILY Potassium Ext Rel (Klor-Con), 20 MEQ PO DAILY Senna (Senokot), 1 TAB PO HS Senna (Senokot), 17.2 MG PO DAILY Tamsulosin Hcl (Flomax), 0.4 MG PO DAILY Current Inpatient Medications Current Inpatient Medications Medications (Trade) Dose Ordered Sig/Harlan Route Start Time Stop Time Status Last Admin Dose Admin Sodium Chloride 1,000 ml @ 100 mls/hr Q10H IV 08/16/17 21:00 09/15/17 20:59 Review of Systems Constitutional: + fever, + chills ENT: No hearing loss, No unusual epistaxis, No nasal symptoms, No sore throat, No tinnitus, No dental problems, No trouble swallowing, No problem reported Respiratory: No cough, No sputum, No wheezing, No shortness of breath, No dyspnea on exertion, No dyspnea at rest, No hemoptysis, No problem reported Cardiovascular: + chest pain, + problem reported (HI 3 times, CABG X 3) Abdomen: No pain, No nausea, No vomiting, No diarrhea, No constipation, No GI bleeding, No problem reported Musculoskeletal: + problem reported (right side arm and leg weakness after stroke), No joint pain, No muscle pain, No swelling, No calf pain Neurologic: + weakness, + problem reported (3 times stroke) Psychiatric: No depression symptoms, No anhedonism, No anxiety, No insomnia, No substance abuse, No problem reported Endocrine: + problem reported (DM), No fatigue, No excessive thirst, No excessive urination Hematologic / Lymphatic: No abnormal bleeding/bruising, No clotting problems, No swollen lymph nodes, No night sweats, No problem reported Physical Exam Date Time Temp Pulse Resp B/P (MAP) Pulse Ox O2 Delivery O2 Flow Rate FiO2 08/16/17 20:57 89 18 160/75 93 Room Air 08/16/17 19:00 38.6 80 20 180/75 95 Room Air 08/16/17 16:11 37.6 87 20 208/76 98 Room Air General Appearance: WD/WN, + mild distress Head: normocephalic Eyes: normal inspection ENT: normal ENT inspection Neck: supple, no JVD Respiratory/Chest: chest non-tender, lungs clear Cardiovascular: regular rate, rhythm, no edema, no gallop, no JVD, no murmur Abdomen/GI: normal bowel sounds, non tender, soft, no organomegaly, no pulsatile mass (rectal exam: left perirectal area- redness, tenderness, size 4x5cm, ) Extremities/Musculoskelatal: normal inspection, no calf tenderness, normal capillary refill Neurologic/Psych: no motor/sensory deficits, alert, normal mood/affect (right side arm and leg weakness 3) Skin: normal color, warm/dry, no rash Laboratory Results Last 24 Hours Test 08/16/17 17:20 08/16/17 17:35 08/16/17 21:08 White Blood Count 13.61 K/uL Red Blood Count 4.02 M/uL Hemoglobin 12.0 g/dL Hematocrit 35.7 % Mean Corpuscular Volume 88.8 fL Mean Corpuscular Hemoglobin 29.9 pg Mean Corpuscular Hemoglobin Concent 33.6 g/dl Platelet Count 276 K/uL Mean Platelet Volume 9.1 fL Neutrophils (%) (Auto) 72.9 % Lymphocytes (%) (Auto) 14.2 % Monocytes (%) (Auto) 10.9 % Eosinophils (%) (Auto) 1.2 % Basophils (%) (Auto) 0.4 % Neutrophils # (Auto) 9.91 K/uL Lymphocytes # (Auto) 1.93 K/uL Monocytes # (Auto) 1.49 K/uL Eosinophils # (Auto) 0.17 K/uL Basophils # (Auto) 0.05 K/uL RDW Standard Deviation 42.6 fL RDW Coefficient of Variation 13.1 % Immature Granulocyte % (Auto) 0.4 % Immature Granulocyte # (Auto) 0.06 K/uL Sodium Level 132 mmol/L Potassium Level 3.6 mmol/L Chloride Level 100 mmol/L Carbon Dioxide Level 25 mmol/L Anion Gap 7.0 mmol/L Blood Urea Nitrogen 18 mg/dl Creatinine 1.35 mg/dl Est Creatinine Clear Calc Drug Dose 54.8 ml/min Estimated GFR () 57.5 Estimated GFR (Non- 49.6 BUN/Creatinine Ratio 13.1 Random Glucose 126 mg/dl Calcium Level 9.3 mg/dl Total Bilirubin 1.0 mg/dl Aspartate Amino Transf (AST/SGOT) 23 U/L Alanine Aminotransferase (ALT/SGPT) 42 U/L Alkaline Phosphatase 102 U/L Total Protein 8.2 gm/dl Albumin 3.5 gm/dl Globulin 4.7 gm/dl Albumin/Globulin Ratio 0.7 Urine Color YELLOW Urine Appearance CLEAR Urine pH 5.0 Urine Specific [place] 1.024 Urine Protein 1+ Urine Glucose (UA) 1+ Urine Ketones NEG Urine Occult Blood NEG Urine Nitrite NEG Urine Bilirubin NEG Urine Urobilinogen NEG Urine Leukocyte Esterase NEG Urine WBC (Auto) 1-5 /hpf Urine RBC (Auto) 0-4 /hpf Urine Hyaline Casts (Auto) 1-5 /lpf Urine Epithelial Cells (Auto) 0-5 /lpf Urine Bacteria (Auto) NEG Assessment & Plan CT DOSE: 2225.64 mGycm FINDINGS: Lung bases: The patient is status post midline sternotomy. The heart is normal in size and without pericardial effusion. There are coronary artery calcifications. There is no airspace consolidation or pleural effusion. Numerous calcified granulomas are seen at the lung bases. There are foci of bibasilar scarring versus atelectasis. A small hiatal hernia is identified. Liver: The unenhanced liver is normal in size, contour, and attenuation. There is no intrahepatic biliary ductal dilatation. Gallbladder: Unremarkable. Spleen: Normal in size and attenuation. Pancreas: The unenhanced pancreas is atrophic and grossly unremarkable. Adrenal glands: Unremarkable. Kidneys: The unenhanced kidneys are atrophic and without hydronephrosis. There are no renal calculi identified. There is no evidence of contour deforming renal mass lesion. Abdominal vasculature: The abdominal aorta is normal in course and caliber noting advanced atherosclerotic calcification. Bowel: The small bowel and colon are normal in course and caliber. The appendix is well-visualized and normal. Peritoneum: There is no intraperitoneal free air or abdominal ascites. There is a small fat-containing umbilical hernia. Lymphadenopathy: None. Pelvic viscera: The prostate gland is normal in size, measuring 4.5 cm in transverse diameter. The bladder is decompressed around a Be catheter and not well evaluated. Foci of intraluminal gas are likely related to instrumentation. There is a small fat-containing left inguinal hernia. There is an approximately 4 x 2 cm left perianal fluid collection identified, best seen on axial image #494. This extends from the 1:00 to the 6:00 positions, and likely represents an abscess. Surrounding inflammatory change likely represents cellulitis. No definite fistulous tract is identified. Skeletal structures: The skeletal structures are osteopenic. There is mild to moderate lumbosacral spondylosis. No lytic or blastic lesions are seen. IMPRESSION: 1. Suboptimal examination without oral and IV contrast. 2. There is an approximately 4 x 2 cm left sided perianal fluid collection typical in appearance for perianal abscess. Mild overlying inflammatory change likely represents cellulitis. 3. No acute infectious or inflammatory findings are seen in the abdomen. 4. Additional findings as above. Assessment: pt is a 81 yo male who presents to ER with 3 days history rectal pain with fever and urine retention, CT scan- perirectal abscess, pt's PMH- 3 times HI, 3 times stroke, DM IMP: perirectal abscess, Hospitalist will admit pt to hospital, pt will have I/D perirectal abscess now under sedation + local anesthesia, D/W benefits, risks and alternatives of the procedure, the risks - infection, bleeding, HI, sepsis, multiple organs failure, stroke, DVT, , pt and his family members, ( , daughter) understood, they agree with the plan, I answered all questions.
--- NOTE | 2017-08-16 21:46 | DIAGNOSTIC IMAGING REPORT ---
SINGLE VIEW CHEST CLINICAL HISTORY: Preoperative examination. Perianal abscess. FINDINGS: 2 AP, portable, upright chest radiographs are compared to study dated 12/13/2016 and correlated with chest CT dated 12/16/2015. The examination is degraded by portable technique, apical lordotic positioning, and patient rotation. The patient is status post midline sternotomy. The heart is enlarged and there is atherosclerotic calcification of the thoracic aorta. The pulmonary vasculature is noncongested. Trace fluid is suggested along the fissures. No large pleural effusion is identified and there is no airspace consolidation typical for pneumonia. Atelectasis is seen at the left lung base. No pneumothorax is seen. The skeletal structures are osteopenic. Advanced degenerative change is seen in the shoulders and thoracic spine. IMPRESSION: 1. Cardiomegaly without radiographic evidence of congestive failure. 2. No airspace consolidation is identified typical for pneumonia there is no large pleural effusion. Electronically signed by: Lukas Sun M.D. 08/16/2017 9:44 PM Dictated Date/Time: 08/16/2017 9:42 PM
--- NOTE | 2017-08-16 21:50 | History & Physical Bridge Note ---
H&P Re-Evaluation Bridge Note: I have examined the patient, reviewed the History & Physical and in the interval since the performance of the History & Physical I have noted the following changes of clinical significance: No changes noted
[2017-08-16] MEDS ORDERED: CEFAZOLIN SOD 2000MG/10 ML IV PUSH IV ONE (21:54)
[2017-08-16] MEDS ORDERED: CEFAZOLIN SOD 2000MG/10 ML IV PUSH IV STA (21:57)
[2017-08-16] MEDS ORDERED: BUPIVACAINE 0.5 % 5 MG/1 ML MPF 30ML VIAL ONE (22:11)
[2017-08-16] MEDS ORDERED: LIDOCAINE HCL 1% 20 ML VIAL ONE (22:11)
[2017-08-16] MEDS ORDERED: MIDAZOLAM HCL 1 MG/ML 2ML VIAL ONE (22:24)
[2017-08-16] MEDS ORDERED: PROPOFOL IV EMULSION 10 MG/ML 20 ML VIAL IV ONE (22:25)
[2017-08-16] MEDS ORDERED: FENTANYL CITRATE INJ 50 MCG/1 ML 2 ML VIAL ONE (22:25)
[2017-08-16] MEDS ORDERED: PHENYLEPHRINE 100MCG/ML 5ML SYR IV PRN (22:30)
[2017-08-16] MEDS ORDERED: FLUMAZENIL 0.1 MG/1 ML 10 ML VIAL IV PRN (22:30)
[2017-08-16] MEDS ORDERED: ONDANSETRON INJ 2 MG/ML 2 ML VIAL IV PRN (22:30)
[2017-08-16] MEDS ORDERED: ATROPINE SULFATE 0.1 MG/ML 5ML SYR IV PRN (22:30)
[2017-08-16] MEDS ORDERED: MEPERIDINE HCL 25 MG/ML CARP IV PRN (22:30)
[2017-08-16] MEDS ORDERED: FENTANYL CITRATE INJ 50 MCG/1 ML 2 ML VIAL IV PRN (22:30)
[2017-08-16] MEDS ORDERED: HYDROmorphone INJ 2 MG/ML SYR/VIAL IV PRN (22:30)
[2017-08-16] MEDS ORDERED: EpHEDrine SULFATE INJ 50 MG/ML AMP IV PRN (22:30)
[2017-08-16] MEDS ORDERED: NALOXONE HCL 0.4 MG/1 ML VIAL/CARP IV PRN (22:30)
[2017-08-16] MEDS ORDERED: LABETALOL HCL IV 5 MG/ML 20ML IV PRN (22:30)
[2017-08-16] MEDS ORDERED: LABETALOL HCL IV 5 MG/ML 20ML IV ONE (22:50)
--- NOTE | 2017-08-16 23:12 | [facility] Post Operative Brief Note ---
Immediate Operative Summary Operative Date Aug 16, 2017. Pre-Operative Diagnosis perirectal abscess Post-Operative Diagnosis same Procedure(s) Performed I/D perirectal abscess Surgeon Liliya Tavarez Solar Mechanical Engineer Surgeon(s) neurosurgical nurse practitioner Estimated Blood Loss 10ml Findings perirectal abscess Fluids (cc crystalloids) 400ml Specimens wound culture Drains packing Anesthesia sedation + local Complication(s) None Disposition Recovery Room / PACU
[2017-08-16] MEDS ORDERED: OXYCODONE/ACETAMINOPHEN 5-325 TAB PO PRN (23:15)
[2017-08-16] MEDS ORDERED: HYDROmorphone INJ 0.5 MG/0.5 ML SYR IV PRN (23:15)
[2017-08-16] MEDS ORDERED: METRONIDAZOLE / NSS 500 MG in PREMIXED NSS 100 ML IV SCH (23:15)
--- NOTE | 2017-08-16 23:18 | Anesthesiology Progress Note ---
Anesthesia Post Op Note Date & Time Aug 16, 2017 at 23:17 Vital Signs Pain Intensity: 0 Vital Signs Past 12 Hours Date Time Temp Pulse Resp B/P (MAP) Pulse Ox O2 Delivery O2 Flow Rate FiO2 08/16/17 21:41 87 18 164/71 94 08/16/17 21:32 37.3 87 18 164/71 94 Room Air 08/16/17 20:57 89 18 160/75 93 Room Air 08/16/17 19:00 38.6 80 20 180/75 95 Room Air 08/16/17 16:11 37.6 87 20 208/76 98 Room Air Notes Mental Status: alert / awake / arousable, participated in evaluation Pt Amnestic to Procedure: Yes Nausea / Vomiting: adequately controlled Pain: adequately controlled Airway Patency, RR, SpO2: stable & adequate BP & HR: stable & adequate, see Notes Hydration State: stable & adequate Anesthetic Complications: no major complications apparent The patient was hypertensive preoperatively and in the OR. He was given 20 mg IV labetalol in the OR. His blood pressure is at his baseline in PACU.
[2017-08-17] VITALS (14 sets, daily range): BP systolic 143–187; BP diastolic 64–84; PULSE 73–114; TEMP 36.6–37.8; O2SAT 93–97; Ht 175.3 cm; Wt 109.5 kg
[2017-08-17] MEDS ORDERED: ACETAMINOPHEN 325 MG TAB PO PRN (00:15)
--- NOTE | 2017-08-17 00:29 | History and Physical ---
History & Physical Date & Time of Service: Aug 17, 2017 at 00:14 Chief Complaint: Unable To Urinate Primary Care Physician: Дмитрий Shah M.D. History of Present Illness Source: patient 81 y/o M Hx HTN, DM, combined CHF, CAD, history of CVA x 2, BPH with recent retention. Pt had presented to the ER one day prior with urinary retention and was DCd following catheterization. He returned with c/o additional retention in addition to fevers. His UA proved negative and a CT abdomen was obtained revealing a perianal abscess. The pt was directed to the OR for debridement. In the post-op period he is recovering well and denies any CP, SOB, N/V or lightheadedness. 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%, grade II diastolic dysfunction 6) Depression 7) HTN 8) HPL Surgical Problems: CABG Family History Cancer Diabetes mellitus Heart disease Hypertension Kidney disease Stroke Social History Smoking Status: Never Smoker Smokeless Tobacco Use: No Alcohol Use: none Drug Use: none Marital Status: Occupational Status: retired Immunizations History of Influenza Vaccine: Unknown History of Tetanus Vaccine?: Unknown History of Pneumococcal: Unknown History of Hepatitis B Vaccine: Unknown Multi-Drug Resistant Organisms History of MDRO: No Allergies Coded Allergies: Statins (Verified Allergy, Unknown, UNKNOWN, PER DR. MARINELLI, 08/16/17) Sulfacetamide (Verified Allergy, Unknown, swelling, 08/16/17) opthalmic soln. Ibuprofen (Verified Adverse Reaction, Intermediate, HTN, 08/16/17) Home Medications Scheduled Acetaminophen (Tylenol), 1,000 MG PO QAM Amlodipine (Norvasc), 5 MG PO BID Atorvastatin (Lipitor), 40 MG PO Q2D Bupropion HCl (Bupropion HCl), 100 MG PO DAILY Cholecalciferol (Vitamin D 1000 Unit), 1,000 INTER.UNIT PO DAILY Clopidogrel (Plavix), 75 MG PO DAILY Docusate Sodium (Docusate Sodium), 100 MG PO BID Finasteride (Proscar), 5 MG PO QPM Furosemide (Lasix), 40 MG PO QAM Hydralazine Hcl (Apresoline), 50 MG PO TID Lisinopril (Zestril), 40 MG PO HS Metoprolol Tartrate (Lopressor) (Lopressor), 50 MG PO BID Mirtazapine (Remeron), 15 MG PO HS Omeprazole (Prilosec), 20 MG PO DAILY Potassium Ext Rel (Klor-Con), 20 MEQ PO DAILY Senna (Senokot), 1 TAB PO HS Senna (Senokot), 17.2 MG PO DAILY Tamsulosin Hcl (Flomax), 0.4 MG PO DAILY Review of Systems Constitutional: + fever, + chills, + sweats Eyes: No worsening of vision ENT: No hearing loss, No nasal symptoms Respiratory: No cough, No wheezing Cardiovascular: No chest pain, No orthopnea, No PND Abdomen: + nausea, + vomiting, No pain Musculoskeletal: No joint pain, No muscle pain Genitourinary - Male: + dysuria, + urinary retention, No hematuria Neurologic: No memory loss, No paralysis, No weakness Psychiatric: No depression symptoms Endocrine: No fatigue Hematologic / Lymphatic: No abnormal bleeding/bruising Integumentary: No rash Allergic / Immunologic: No environmental allergies Physical Exam Vital Signs Date Time Temp Pulse Resp B/P (MAP) Pulse Ox O2 Delivery O2 Flow Rate FiO2 08/16/17 23:50 36.9 78 20 163/71 (79) 96 Room Air 08/16/17 23:40 37 78 20 163/69 (105) 98 Room Air 08/16/17 23:30 37 80 20 165/69 (107) 98 Nasal Cannula 2 08/16/17 23:20 36.9 80 20 163/68 (90) 98 Nasal Cannula 2 08/16/17 23:10 36.7 83 22 170/74 97 Nasal Cannula 2 08/16/17 21:41 87 18 164/71 94 08/16/17 21:32 37.3 87 18 164/71 94 Room Air 08/16/17 20:57 89 18 160/75 93 Room Air 08/16/17 19:00 38.6 80 20 180/75 95 Room Air 08/16/17 16:11 37.6 87 20 208/76 98 Room Air General Appearance: WD/WN, no apparent distress Head: normocephalic Eyes: normal inspection ENT: normal ENT inspection, pharynx normal Neck: supple, no JVD Respiratory/Chest: chest non-tender, lungs clear, normal breath sounds Cardiovascular: regular rate, rhythm, no edema, no gallop Abdomen/GI: normal bowel sounds, non tender, soft Back: normal inspection, no CVA tenderness, no muscle spasm, normal range of motion Extremities/Musculoskelatal: normal inspection, no calf tenderness, normal capillary refill 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, no motor/sensory deficits, alert, oriented x 3 Skin: normal color, warm/dry Diagnostics Laboratory Results Results Past 24 Hours Test 08/16/17 17:20 08/16/17 17:35 08/16/17 21:08 08/16/17 23:15 Range/Units White Blood Count 13.61 4.8-10.8 K/uL Red Blood Count 4.02 4.7-6.1 M/uL Hemoglobin 12.0 14.0-18.0 g/dL Hematocrit 35.7 42-52 % Mean Corpuscular Volume 88.8 80-100 fL Mean Corpuscular Hemoglobin 29.9 25-34 pg Mean Corpuscular Hemoglobin Concent 33.6 32-36 g/dl Platelet Count 276 130-400 K/uL Mean Platelet Volume 9.1 7.4-10.4 fL Neutrophils (%) (Auto) 72.9 % Lymphocytes (%) (Auto) 14.2 % Monocytes (%) (Auto) 10.9 % Eosinophils (%) (Auto) 1.2 % Basophils (%) (Auto) 0.4 % Neutrophils # (Auto) 9.91 1.4-6.5 K/uL Lymphocytes # (Auto) 1.93 1.2-3.4 K/uL Monocytes # (Auto) 1.49 0.11-0.59 K/uL Eosinophils # (Auto) 0.17 0-0.5 K/uL Basophils # (Auto) 0.05 0-0.2 K/uL RDW Standard Deviation 42.6 36.4-46.3 fL RDW Coefficient of Variation 13.1 11.5-14.5 % Immature Granulocyte % (Auto) 0.4 % Immature Granulocyte # (Auto) 0.06 0.00-0.02 K/uL Sodium Level 132 136-145 mmol/L Potassium Level 3.6 3.5-5.1 mmol/L Chloride Level 100 98-107 mmol/L Carbon Dioxide Level 25 21-32 mmol/L Anion Gap 7.0 3-11 mmol/L Blood Urea Nitrogen 18 7-18 mg/dl Creatinine 1.35 0.60-1.40 mg/dl Est Creatinine Clear Calc Drug Dose 54.8 ml/min Estimated GFR () 57.5 Estimated GFR (Non- 49.6 BUN/Creatinine Ratio 13.1 10-20 Random Glucose 126 70-99 mg/dl Calcium Level 9.3 8.5-10.1 mg/dl Total Bilirubin 1.0 0.2-1 mg/dl Aspartate Amino Transf (AST/SGOT) 23 15-37 U/L Alanine Aminotransferase (ALT/SGPT) 42 12-78 U/L Alkaline Phosphatase 102 45-117 U/L Total Protein 8.2 6.4-8.2 gm/dl Albumin 3.5 3.4-5.0 gm/dl Globulin 4.7 2.5-4.0 gm/dl Albumin/Globulin Ratio 0.7 0.9-2 Urine Color YELLOW Urine Appearance CLEAR CLEAR Urine pH 5.0 4.5-7.5 Urine Specific [place] 1.024 1.000-1.030 Urine Protein 1+ NEG Urine Glucose (UA) 1+ NEG Urine Ketones NEG NEG Urine Occult Blood NEG NEG Urine Nitrite NEG NEG Urine Bilirubin NEG NEG Urine Urobilinogen NEG NEG Urine Leukocyte Esterase NEG NEG Urine WBC (Auto) 1-5 0-5 /hpf Urine RBC (Auto) 0-4 0-4 /hpf Urine Hyaline Casts (Auto) 1-5 0-5 /lpf Urine Epithelial Cells (Auto) 0-5 0-5 /lpf Urine Bacteria (Auto) NEG NEG Lactic Acid Level 0.8 0.4-2.0 mmol/L Bedside Glucose 140 70-99 mg/dl Diagnostic Radiology CT abdomen: 1. Suboptimal examination without oral and IV contrast. 2. There is an approximately 4 x 2 cm left sided perianal fluid collection typical in appearance for perianal abscess. Mild overlying inflammatory change likely represents cellulitis. 3. No acute infectious or inflammatory findings are seen in the abdomen. Impression Assessment and Plan 81 y/o M Hx HTN, DM, combined CHF, CAD, history of CVA x 2, BPH with recent retention. Pt had presented to the ER one day prior with urinary retention and was DCd following catheterization. He returned with c/o additional retention in addition to fevers. His UA proved negative and a CT abdomen was obtained revealing a perianal abscess. The pt was directed to the OR for debridement. In the post-op period he is recovering well and denies any CP, SOB, N/V or lightheadedness. 1) Perianal abscess - the pt was placed on Cipro/Flagyl which we will continue pending culture results. He also received a dose of Cefazolin prior to surgery. Post-op wound management is to the discretion of surgery. 2) CHF - clinically euvolemic post-op - can resume diuretics, Bblocker, PRAVEEN AM 3) HTN - pt required IV Labetalol irma-op due to uncontrolled HTN - we will resume his home meds and place him on telemetry overnight 4) BPH - recent retention - refer to urology on discharge - a catheter is in place and will require a voiding trial AM 5) CAD - no evidence of ACS - cont Statin, Plavix, B-wayne 6) DM - is diet-controlled - Pt is NPO until AM Full code - SCDs Total time for this admit post-op including reviw of labs, meds, records - discussion with pt and family - 40 min Level of Care Telemetry Resuscitation Status FULL RESUSCITATION VTE Prophylaxis VTE Risk Assessment Done? Y/N: Yes Risk Level: Moderate Given or contraindicated: SCD's
--- NOTE | 2017-08-17 00:29 | EMERGENCY ROOM VISIT NOTE ---
ED Visit Note First contact with patient: 16:48 I have personally evaluated this patient examined her and reviewed the pertinent labs and data. I have discussed the case with Dr. Lepe, the resident physician and agree with the plan. Please refer to the PA note. This patient returns today after having urinary difficulties of dysuria and difficulty emptying his bladder. He has no new numbness weakness of legs no trauma. There is nothing to suggest cauda equina syndrome. A Be catheter was placed a large amount of urine was obtained. His white count is mildly elevated. His urinalysis does not suggest a UTI with a culture pending. While he was here he started getting chills and did spike a temperature to 101.5 and in light of this we did give him IV Cipro 400 mg IV to cover the possibility of UTI/prostatitis and we did a CAT scan the CAT scan did reveal a irma-anal abscess and we did add Flagyl IV to cover does well. We have consulted Dr. Paz, the hospitalist, as well as , the surgeon. Dr. Tavarez did take him to the operating room to drain his perianal abscess. He will be admitted afterwards.
[2017-08-17] MEDS ORDERED: IV FLUIDS COMPLETED PRN (00:45)
--- NOTE | 2017-08-17 01:19 | OPERATIVE REPORT ---
DATE OF OPERATION: 08/16/2017 PREOPERATIVE DIAGNOSIS: Perirectal abscess. POSTOPERATIVE DIAGNOSIS: Same. PROCEDURE: I&D of perirectal abscess. SURGEON: Liliya Tavarez MD. ANESTHESIA: Conscious sedation plus local. ESTIMATED BLOOD LOSS: About 10 mL. FINDINGS: Perirectal abscess. Wound culture sent. COMPLICATIONS: None. INDICATIONS FOR THE PROCEDURE: This is a 81-year-old gentleman who presented to the ER with 3 days history urinary retention, rectal pain and the patient had a CT scan confirming patient has a perirectal abscess. The patient required to do I&D of perirectal abscess. I did talk to the patient about the benefit and risk, alternate procedure. I indicated the risks may include but not limited such as bleeding, infection, multiple organ failure, abscess, myocardial infarction, stroke, DVT, even . The patient understands. The patient's daughter signed informed consent and I answered all questions. DETAILS OF PROCEDURE: We brought the patient to the OR, put the patient on the lithotomy position. The patient received SCD on bilateral legs to prevent DVT. Also, patient received conscious sedation by the anesthesiology. The patient received 2 grams Ancef IV for prophylactic antibiotic. The patient's rectal area was appropriately prepped in routine sterile fashion. After a timeout, I used 1% lidocaine mixed with 0.5% Marcaine injection around the rectal area. There was redness, tenderness on the left side of rectal area. Then I used a 15 blade, made about a 2 cm incision. There was pus coming out immediately. We did sent the wound culture. Once we cleaned the pus and we packed the incision. Hemostasis was obtained. We put the dressing on. The patient tolerated the procedure well. All the instrument, needle and sponge count correct x2 at the end of case and patient transferred to recovery room in stable condition. After the procedure, I did talk to the patient and family member about the OR finding and procedure we did, they understand. I attest to the content of the Intraoperative Record and any orders documented therein. Any exceptions are noted below. [place]ODAK
[2017-08-17] MEDS: SODIUM CHLOR 0.45% + 20MEQ KCL 1,000 ML IV SCH ×2 (04:09→22:01)
[2017-08-17] MEDS ORDERED: CEFAZOLIN SOD 2000MG/10 ML IV PUSH IV ONE (06:00)
[2017-08-17 06:16] LABS: BASO % 0.3 %; BASO ABS # 0.03 K/uL (0-0.2); COMPLETE YES; EOS % 0.9 %; HEMATOCRIT 30.5 % (42-52); IG% 0.3 %; LYMPH % 13.4 %; LYMPH ABS # 1.55 K/uL (1.2-3.4); MEAN CELL VOLUME 87.6 fL (80-100); MEAN CORPUSCULAR HEMOGLOBIN 29.3 pg (25-34); MEAN CORPUSCULAR HGB CONC 33.4 g/dl (32-36); MEAN PLATELET VOLUME 9.1 fL (7.4-10.4); MONO % 15.6 %; NEUT % 69.5 %; PLATELET COUNT 247 K/uL (130-400); RED BLOOD COUNT 3.48 M/uL (4.7-6.1); WHITE BLOOD COUNT 11.59 K/uL (4.8-10.8)
[2017-08-17] MEDS: METRONIDAZOLE / NSS 500 MG in PREMIXED NSS 100 ML IV SCH ×3 (06:16→22:01)
[2017-08-17 06:49] LABS: BUN/CREATININE RATIO 12.1 (10-20); CALCIUM 8.3 mg/dl (8.5-10.1); CREATININE 1.28 mg/dl (0.60-1.40); POTASSIUM 3.5 mmol/L (3.5-5.1)
[2017-08-17 07:09] LABS: ALB/GLOB RATIO 0.7 (0.9-2)
[2017-08-17] MEDS: PANTOprazole SOD 40 MG TAB PO SCH (07:35)
[2017-08-17] MEDS: CIPROFLOXACIN / D5W 400 MG in PREMIXED IN D5W 200 ML IV SCH ×2 (07:35→21:52)
[2017-08-17] MEDS: METOPROLOL TARTRATE 50 MG TAB PO SCH ×2 (07:36→21:53)
[2017-08-17] MEDS: POTASSIUM CHLORIDE 20 MEQ TABCR PO SCH (07:36)
[2017-08-17] MEDS: TAMSULOSIN HCL 0.4 MG CAP PO SCH (07:37)
[2017-08-17] MEDS: CLOPIDOGREL BISULFATE 75 MG TAB PO SCH (07:37)
[2017-08-17] MEDS: AMLODIPINE BESYLATE 5 MG TAB PO SCH ×2 (07:38→21:53)
[2017-08-17] MEDS: SENNA 8.6 MG TAB PO SCH (07:38)
[2017-08-17] MEDS: FUROSEMIDE 40 MG TAB PO SCH (07:39)
[2017-08-17] MEDS ORDERED: ATORVASTATIN 40 MG TAB PO SCH (09:00)
[2017-08-17] MEDS ORDERED: CIPROFLOXACIN / D5W 400 MG in PREMIXED IN D5W 200 ML IV SCH (09:00)
--- NOTE | 2017-08-17 11:46 | Surgery Progress Note ---
Surgery Progress Note Date of Service Aug 17, 2017. Subjective Post OP Day: POD # 0 s/p incision and drainage of perirectal abscess + feeling well, + pain controlled, No chest pain, No SOB, No nausea, No vomiting "Feeling better today" Not as much pain today No chills or sweats able to sit down without pain Objective Vital Signs: Date Time Temp Pulse Resp B/P (MAP) Pulse Ox O2 Delivery O2 Flow Rate FiO2 08/17/17 08:00 Room Air 08/17/17 07:48 37.3 76 18 153/69 (97) 94 Room Air 08/17/17 04:14 36.8 86 22 169/78 (108) 95 Room Air 08/17/17 04:00 CPAP 08/17/17 03:25 36.8 86 20 154/71 (98) 97 CPAP 08/17/17 02:25 86 20 152/75 (100) 97 CPAP 08/17/17 02:11 CPAP 08/17/17 01:55 88 20 154/71 (98) 96 CPAP 08/17/17 01:10 36.8 88 20 161/64 (96) 96 Room Air 08/17/17 00:58 36.8 84 20 172/77 (108) 97 Room Air 08/17/17 00:40 37.5 114 19 187/77 97 Room Air 08/17/17 00:15 36.9 78 20 162/70 (108) 98 Room Air 08/16/17 23:50 36.9 78 20 163/71 (79) 96 Room Air 08/16/17 23:40 37 78 20 163/69 (105) 98 Room Air 08/16/17 23:30 37 80 20 165/69 (107) 98 Nasal Cannula 2 08/16/17 23:20 36.9 80 20 163/68 (90) 98 Nasal Cannula 2 08/16/17 23:10 36.7 83 22 170/74 97 Nasal Cannula 2 08/16/17 21:41 87 18 164/71 94 08/16/17 21:32 37.3 87 18 164/71 94 Room Air 08/16/17 20:57 89 18 160/75 93 Room Air 08/16/17 19:00 38.6 80 20 180/75 95 Room Air 08/16/17 16:11 37.6 87 20 208/76 98 Room Air General Appearance: WD/WN, no apparent distress Head: normocephalic, atraumatic Neck: trachea midline Respiratory/Chest: no respiratory distress, no accessory muscle use Incision(s): findings (perirectal wound not inspected today as it is POD # 0, dressing clean and dry.) Laboratory Results: Results Past 24 Hours Test 08/16/17 17:20 08/16/17 17:35 08/16/17 21:08 08/16/17 23:15 Range/Units White Blood Count 13.61 4.8-10.8 K/uL Red Blood Count 4.02 4.7-6.1 M/uL Hemoglobin 12.0 14.0-18.0 g/dL Hematocrit 35.7 42-52 % Mean Corpuscular Volume 88.8 80-100 fL Mean Corpuscular Hemoglobin 29.9 25-34 pg Mean Corpuscular Hemoglobin Concent 33.6 32-36 g/dl Platelet Count 276 130-400 K/uL Mean Platelet Volume 9.1 7.4-10.4 fL Neutrophils (%) (Auto) 72.9 % Lymphocytes (%) (Auto) 14.2 % Monocytes (%) (Auto) 10.9 % Eosinophils (%) (Auto) 1.2 % Basophils (%) (Auto) 0.4 % Neutrophils # (Auto) 9.91 1.4-6.5 K/uL Lymphocytes # (Auto) 1.93 1.2-3.4 K/uL Monocytes # (Auto) 1.49 0.11-0.59 K/uL Eosinophils # (Auto) 0.17 0-0.5 K/uL Basophils # (Auto) 0.05 0-0.2 K/uL RDW Standard Deviation 42.6 36.4-46.3 fL RDW Coefficient of Variation 13.1 11.5-14.5 % Immature Granulocyte % (Auto) 0.4 % Immature Granulocyte # (Auto) 0.06 0.00-0.02 K/uL Sodium Level 132 136-145 mmol/L Potassium Level 3.6 3.5-5.1 mmol/L Chloride Level 100 98-107 mmol/L Carbon Dioxide Level 25 21-32 mmol/L Anion Gap 7.0 3-11 mmol/L Blood Urea Nitrogen 18 7-18 mg/dl Creatinine 1.35 0.60-1.40 mg/dl Est Creatinine Clear Calc Drug Dose 54.8 ml/min Estimated GFR () 57.5 Estimated GFR (Non- 49.6 BUN/Creatinine Ratio 13.1 10-20 Random Glucose 126 70-99 mg/dl Calcium Level 9.3 8.5-10.1 mg/dl Total Bilirubin 1.0 0.2-1 mg/dl Aspartate Amino Transf (AST/SGOT) 23 15-37 U/L Alanine Aminotransferase (ALT/SGPT) 42 12-78 U/L Alkaline Phosphatase 102 45-117 U/L Total Protein 8.2 6.4-8.2 gm/dl Albumin 3.5 3.4-5.0 gm/dl Globulin 4.7 2.5-4.0 gm/dl Albumin/Globulin Ratio 0.7 0.9-2 Urine Color YELLOW Urine Appearance CLEAR CLEAR Urine pH 5.0 4.5-7.5 Urine Specific [place] 1.024 1.000-1.030 Urine Protein 1+ NEG Urine Glucose (UA) 1+ NEG Urine Ketones NEG NEG Urine Occult Blood NEG NEG Urine Nitrite NEG NEG Urine Bilirubin NEG NEG Urine Urobilinogen NEG NEG Urine Leukocyte Esterase NEG NEG Urine WBC (Auto) 1-5 0-5 /hpf Urine RBC (Auto) 0-4 0-4 /hpf Urine Hyaline Casts (Auto) 1-5 0-5 /lpf Urine Epithelial Cells (Auto) 0-5 0-5 /lpf Urine Bacteria (Auto) NEG NEG Lactic Acid Level 0.8 0.4-2.0 mmol/L Bedside Glucose 140 70-99 mg/dl Test 08/17/17 05:52 08/17/17 06:36 08/17/17 11:07 Range/Units White Blood Count 11.59 4.8-10.8 K/uL Red Blood Count 3.48 4.7-6.1 M/uL Hemoglobin 10.2 14.0-18.0 g/dL Hematocrit 30.5 42-52 % Mean Corpuscular Volume 87.6 80-100 fL Mean Corpuscular Hemoglobin 29.3 25-34 pg Mean Corpuscular Hemoglobin Concent 33.4 32-36 g/dl Platelet Count 247 130-400 K/uL Mean Platelet Volume 9.1 7.4-10.4 fL Neutrophils (%) (Auto) 69.5 % Lymphocytes (%) (Auto) 13.4 % Monocytes (%) (Auto) 15.6 % Eosinophils (%) (Auto) 0.9 % Basophils (%) (Auto) 0.3 % Neutrophils # (Auto) 8.06 1.4-6.5 K/uL Lymphocytes # (Auto) 1.55 1.2-3.4 K/uL Monocytes # (Auto) 1.81 0.11-0.59 K/uL Eosinophils # (Auto) 0.11 0-0.5 K/uL Basophils # (Auto) 0.03 0-0.2 K/uL RDW Standard Deviation 42.8 36.4-46.3 fL RDW Coefficient of Variation 13.3 11.5-14.5 % Immature Granulocyte % (Auto) 0.3 % Immature Granulocyte # (Auto) 0.03 0.00-0.02 K/uL Sodium Level 135 136-145 mmol/L Potassium Level 3.5 3.5-5.1 mmol/L Chloride Level 103 98-107 mmol/L Carbon Dioxide Level 25 21-32 mmol/L Anion Gap 7.0 3-11 mmol/L Blood Urea Nitrogen 16 7-18 mg/dl Creatinine 1.28 0.60-1.40 mg/dl Est Creatinine Clear Calc Drug Dose 57.1 ml/min Estimated GFR () 61.3 Estimated GFR (Non- 52.9 BUN/Creatinine Ratio 12.1 10-20 Random Glucose 152 70-99 mg/dl Calcium Level 8.3 8.5-10.1 mg/dl Total Bilirubin 1.0 0.2-1 mg/dl Aspartate Amino Transf (AST/SGOT) 16 15-37 U/L Alanine Aminotransferase (ALT/SGPT) 30 12-78 U/L Alkaline Phosphatase 87 45-117 U/L Total Protein 6.8 6.4-8.2 gm/dl Albumin 2.7 3.4-5.0 gm/dl Globulin 4.1 2.5-4.0 gm/dl Albumin/Globulin Ratio 0.7 0.9-2 Bedside Glucose 158 164 70-99 mg/dl Microbiology Results 08/16/17 Urine Culture, Received Pending 08/16/17 Gram Stain - Final, Resulted 08/16/17 Bacterial Culture, Resulted Pending 08/16/17 Gram Stain - Final, Resulted 08/16/17 Bacterial Culture, Resulted Pending Assessment & Plan POD # 0 s/p incision and drainage of perirectal abscess - vitals stable, afebrile overnight - improving leukocytosis of 11K today (13K last evening) - perirectal pain much improved and controlled Plan: Will consult wound nurse for packing change starting tomorrow Patient should follow-up with wound care center for every other day packing changes Continue IV antibiotics, await results of culture Continue current medical management repeat am labs Dr. Tavarez has seen and examined patient, agrees with above
[2017-08-17] MEDS ORDERED: SENNA 8.6 MG TAB PO SCH (21:00)
[2017-08-17] MEDS ORDERED: LISINOPRIL 40 MG TAB PO SCH (21:00)
[2017-08-17] MEDS ORDERED: FINASTERIDE 5 MG TAB PO SCH (21:00)
[2017-08-17] MEDS ORDERED: MIRTAZAPINE TAB 15 MG TAB PO SCH (21:00)
[2017-08-18 04:14] VITALS: BP 168/71; PULSE 69; TEMP 37.1; O2SAT 96
[2017-08-18] MEDS: METRONIDAZOLE / NSS 500 MG in PREMIXED NSS 100 ML IV SCH ×2 (04:46→13:35)
[2017-08-18 07:45] VITALS: BP 168/67; PULSE 75; TEMP 37.1; O2SAT 94
[2017-08-18] MEDS: AMLODIPINE BESYLATE 5 MG TAB PO SCH (08:55)
[2017-08-18] MEDS: CIPROFLOXACIN / D5W 400 MG in PREMIXED IN D5W 200 ML IV SCH (08:55)
[2017-08-18] MEDS: PANTOprazole SOD 40 MG TAB PO SCH (08:56)
[2017-08-18] MEDS: CLOPIDOGREL BISULFATE 75 MG TAB PO SCH (08:56)
[2017-08-18] MEDS: SENNA 8.6 MG TAB PO SCH (08:56)
[2017-08-18] MEDS: POTASSIUM CHLORIDE 20 MEQ TABCR PO SCH (08:57)
[2017-08-18] MEDS: FUROSEMIDE 40 MG TAB PO SCH (08:57)
[2017-08-18] MEDS: METOPROLOL TARTRATE 50 MG TAB PO SCH (08:57)
[2017-08-18] MEDS: TAMSULOSIN HCL 0.4 MG CAP PO SCH (08:58)
[2017-08-18 09:12] LABS: HEMATOCRIT 34.6 % (42-52); MEAN CELL VOLUME 89.2 fL (80-100); MEAN CORPUSCULAR HEMOGLOBIN 29.4 pg (25-34); MEAN CORPUSCULAR HGB CONC 32.9 g/dl (32-36); MEAN PLATELET VOLUME 9.2 fL (7.4-10.4); PLATELET COUNT 284 K/uL (130-400); RED BLOOD COUNT 3.88 M/uL (4.7-6.1)
[2017-08-18 09:38] LABS: BUN/CREATININE RATIO 11.8 (10-20); CALCIUM 9.1 mg/dl (8.5-10.1); CREATININE 1.48 mg/dl (0.60-1.40); POTASSIUM 3.6 mmol/L (3.5-5.1)
--- NOTE | 2017-08-18 10:26 | Surgery Progress Note ---
Surgery Progress Note Date of Service Aug 18, 2017. Subjective Post OP Day: 1 (S/P I&D perirectal abscess ) + feeling well, + bowel movement, + diet (tolerating regular diet), No complaints, No nausea, No vomiting Objective Vital Signs: Date Time Temp Pulse Resp B/P (MAP) Pulse Ox O2 Delivery O2 Flow Rate FiO2 08/18/17 07:45 37.1 75 20 168/67 (100) 94 08/18/17 04:14 37.1 69 18 168/71 (103) 96 Room Air 08/18/17 04:00 Room Air 08/18/17 00:01 Room Air 08/17/17 23:48 37.2 73 19 174/66 (102) 94 CPAP 08/17/17 20:10 37.0 81 20 166/84 (111) 95 Room Air 08/17/17 20:00 Room Air 08/17/17 16:00 Room Air 08/17/17 15:49 36.6 73 20 159/74 (102) 95 Room Air 08/17/17 13:47 86 166/74 (104) 93 Room Air 08/17/17 13:19 37.7 08/17/17 12:00 Room Air 08/17/17 11:53 37.8 75 22 143/70 (94) 97 Room Air General Appearance: WD/WN, no apparent distress Head: normocephalic, atraumatic Neck: trachea midline Respiratory/Chest: no respiratory distress, no accessory muscle use Laboratory Results: Results Past 24 Hours Test 08/17/17 11:07 08/17/17 16:35 08/17/17 20:32 08/18/17 06:41 Range/Units Bedside Glucose 164 159 127 129 70-99 mg/dl Test 08/18/17 08:45 Range/Units White Blood Count 7.90 4.8-10.8 K/uL Red Blood Count 3.88 4.7-6.1 M/uL Hemoglobin 11.4 14.0-18.0 g/dL Hematocrit 34.6 42-52 % Mean Corpuscular Volume 89.2 80-100 fL Mean Corpuscular Hemoglobin 29.4 25-34 pg Mean Corpuscular Hemoglobin Concent 32.9 32-36 g/dl RDW Standard Deviation 43.4 36.4-46.3 fL RDW Coefficient of Variation 13.4 11.5-14.5 % Platelet Count 284 130-400 K/uL Mean Platelet Volume 9.2 7.4-10.4 fL Sodium Level 136 136-145 mmol/L Potassium Level 3.6 3.5-5.1 mmol/L Chloride Level 104 98-107 mmol/L Carbon Dioxide Level 26 21-32 mmol/L Anion Gap 6.0 3-11 mmol/L Blood Urea Nitrogen 18 7-18 mg/dl Creatinine 1.48 0.60-1.40 mg/dl Est Creatinine Clear Calc Drug Dose 49.4 ml/min Estimated GFR () 51.4 Estimated GFR (Non- 44.4 BUN/Creatinine Ratio 11.8 10-20 Random Glucose 178 70-99 mg/dl Calcium Level 9.1 8.5-10.1 mg/dl Microbiology Results 08/17/17 Blood Culture, Received Pending 08/17/17 Blood Culture, Received Pending Assessment & Plan POD # 1 s/p incision and drainage of perirectal abscess - vitals stable, afebrile overnight - leukocytosis resolved - perirectal pain much improved and controlled Plan: packing change with wound nurse today Patient needs follow up with wound clinic for every other day packing changes Will need 7 days of PO antibiotics on discharge, will write for Cipro/flagyl From surgical standpoint okay for discharge Follow-up with Dr. Tavarez PRN Dr. Tavarez has seen patient, agrees with above
--- NOTE | 2017-08-18 10:31 | Discharge Instructions ---
Discharge Instructions Date of Service Aug 18, 2017. Admission Reason for Admission: Perirectal Abscess Discharge Discharge Diagnosis / Problem: same Discharge Goals Goal(s): Decrease discomfort, Improve function Activity Recommendations Activity Limitations: as noted below Lifting Limitations: none Exercise/Sports Limitations: gradually increase as tolerated May Resume Sexual Activity: after two weeks Shower/Bathe: no limitations (You may shower, keep dresssing clean and dry so replace as needed) Driving or Machine Use: No driving while you are taking narcotic pain medication . Instructions / Follow-Up Instructions / Follow-Up You will have follow-up with wound clinic for packing changes every other day You may shower Patient to leave home with lewis and follow up with urology in 1 week Keep dressing clean and dry as possible, replace after bowel movements and after showers. Do not need to change packing as this will be changed by the wound clinic. Finish complete course of antibiotics as prescribed You will be given prescription for narcotic pain medication, only take for severe pain. You may take extra strength Tylenol as needed for mild to moderate pain. Current Hospital Diet Patient's current hospital diet: Diabetes Type 2 Diet Discharge Diet Recommended Diet: Regular Diet, Diabetes Type 2 Diet Procedures Procedures Performed: I/D perirectal abscess Pending Studies Studies pending at discharge: yes List of pending studies: culture results still pending Medical Emergencies . Who to Call and When: Medical Emergencies: If at any time you feel your situation is an emergency, please call 911 immediately. . Non-Emergent Contact Non-Emergency issues call your: Primary Care Provider Call Non-Emergent contact if: you have a fever, temperature is above 101, your pain is not controlled, your pain is worsening, your pain is unusual for you, wound has increased drainage, wound has increased redness, wound has increased pain . "Provider Documentation" section prepared by Shilpi Rene. . VTE Core Measure Inpt VTE Proph given/why not?: SCD's [place] Drug Monitoring Program Search Results: patient reviewed within database, no issues identified
[2017-08-18] MEDS ORDERED: OXYC-57 PO (10:32)
[2017-08-18] MEDS ORDERED: METR500T PO (10:32)
[2017-08-18] MEDS ORDERED: CIPR-255 PO (10:32)
[2017-08-18 11:53] VITALS: BP 153/76; PULSE 64; TEMP 37.2; O2SAT 99
[2017-08-18 15:36] VITALS: BP 173/79; PULSE 68; TEMP 36.3; O2SAT 97
[2017-08-18 16:00] VITALS: O2SAT 97
--- NOTE | 2017-08-18 16:13 | Discharge Summary ---
Discharge Summary Date of Service Aug 18, 2017. Discharge Summary Admission Date: Aug 17, 2017 at 00:07 Discharge Date: Aug 18, 2017 Discharge Disposition: Home Principal Diagnosis: Perianal abscess Immunizations: Have You Had Influenza Vaccine: Unknown History of Tetanus Vaccine?: Unknown History of Pneumococcal: Unknown History of Hepatitis B Vaccine: Unknown Consultations: General surgery Medication Reconciliation New Medications: Ciprofloxacin Hcl (Cipro) 500 Mg Tab 500 MG PO BID for 7 Days, #14 TAB 0 Refills Metronidazole (Flagyl) 500 Mg Tab 500 MG PO TID for 7 Days, #21 TAB Oxycodone/Acetaminophen 5MG/325MG (Percocet 5MG/325MG) Tab 1 TABLET PO Q6H PRN for Pain, #12 TAB Continued Medications: Acetaminophen (Tylenol) 500 Mg Tab 1000 MG PO QAM Amlodipine (Norvasc) 5 Mg Tab 5 MG PO BID, TAB Atorvastatin (Lipitor) 40 Mg Tab 40 MG PO Q2D Bupropion HCl (Bupropion HCl) 100 Mg Tab 100 MG PO DAILY Cholecalciferol (Vitamin D 1000 Unit) 1,000 Unit Cap 1000 INTER.UNIT PO DAILY, CAP Clopidogrel (Plavix) 75 Mg Tab 75 MG PO DAILY Docusate Sodium (Docusate Sodium) 100 Mg Tab 100 MG PO BID Finasteride (Proscar) 5 Mg Tab 5 MG PO QPM Furosemide (Lasix) 40 Mg Tab 40 MG PO QAM Hydralazine Hcl (Apresoline) 50 Mg Tab 50 MG PO TID Lisinopril (Zestril) 40 Mg Tab 40 MG PO HS Metoprolol Tartrate (Lopressor) (Lopressor) 50 Mg Tab 50 MG PO BID, TAB Mirtazapine (Remeron) 15 Mg Tab 15 MG PO HS, TAB Omeprazole (Prilosec) 20 Mg Capcr 20 MG PO DAILY, CAP Potassium Ext Rel (Klor-Con) 20 Meq Tabcr 20 MEQ PO DAILY Senna (Senokot) 8.6 Mg Tab 1 TAB PO HS, TAB Senna (Senokot) 8.6 Mg Tab 17.2 MG PO DAILY Tamsulosin Hcl (Flomax) 0.4 Mg Cap 0.4 MG PO DAILY, CAP Discharge Exam Review of Systems: Constitutional: No fever, No chills, No sweats, No weakness Eyes: No worsening of vision, No eye pain, No redness, No discharge Respiratory: No cough, No sputum, No wheezing, No shortness of breath Cardiovascular: No chest pain, No orthopnea, No PND, No edema Abdomen: No pain, No nausea, No vomiting, No diarrhea Musculoskeletal: + muscle pain, No joint pain, No swelling Genitourinary - Male: No hematuria, No dysuria, No urinary frequency, No urinary urgency Neurologic: No memory loss, No paralysis, No weakness, No numbness/tingling Psychiatric: No depression symptoms, No anhedonism, No anxiety, No insomnia Endocrine: No fatigue, No excessive thirst Integumentary: No rash, No itch Physical Exam: General Appearance: WD/WN, no apparent distress Eyes: normal inspection, PERRL, EOMI, sclerae normal Neck: supple, no adenopathy, thyroid normal, no JVD Respiratory/Chest: chest non-tender, lungs clear, normal breath sounds, no respiratory distress Cardiovascular: regular rate, rhythm, no edema, no gallop, no JVD Abdomen / GI: normal bowel sounds, non tender, soft, no organomegaly Extremities: normal inspection, no calf tenderness, normal capillary refill , no pedal edema Neurologic/Psychiatric: account maintenance representative II-XII nml as tested, no motor/sensory deficits , alert, normal mood/affect, oriented x 3 Skin: normal color, warm/dry, no rash Lymphatic: no adenopathy Hospital Course 81 y/o M Hx HTN, DM, combined CHF, CAD, history of CVA x 2, BPH with recent retention. Pt had presented to the ER one day prior with urinary retention and was DCd following catheterization. He returned with c/o additional retention in addition to fevers. His UA proved negative and a CT abdomen was obtained revealing a perianal abscess. The pt was directed to the OR for debridement. In the post-op period he is recovering well and denies any CP, SOB, N/V or lightheadedness. 1) Perianal abscess - the pt was placed on Cipro/Flagyl. He also received a dose of Cefazolin prior to surgery. Wound cx prelim for gram neg maribel bacteria. Only low grade fever during hospital course. DC home with cipro and flagyl for 7 days total. Will follow up with wound care in addition to urology. pt will also be discharged home with lewis. 2) CHF - clinically euvolemic post-op - can resume diuretics, Bblocker, PRAVEEN AM 3) HTN - pt required IV Labetalol irma-op due to uncontrolled HTN - we will resume his home meds 4) BPH - recent retention - refer to urology on discharge - a catheter is in place, will need to f/u with urology on DC 5) CAD - no evidence of ACS - cont Statin, Plavix, B-wayne 6) DM - is diet-controlled - Pt is NPO until AM Total Time Spent: Greater than 30 minutes This includes examination of the patient, discharge planning, medication reconciliation, and communication with other providers. Discharge Instructions Please refer to the electronic Patient Visit Report (Discharge Instructions) for additional information. Additional Copies To Дмитрий Shah M.D.
[2017-08-18 19:13] VITALS: BP 173/79; PULSE 68; TEMP 36.3; O2SAT 97
== END 2017-08-18 18:30 | disposition home health service (06) ==
LOC: C.EDB 16:01 → C.2T 08-17 00:07 → ENRESERV 08-17 00:13
PROVIDERS: ADMIT Surgery; ATTEND Surgery
DX: K61.0 Anal abscess (principal); R33.9 Retention of urine, unspecified; Z86.73 Personal history of transient ischemic attack (TIA), and cerebral infarction without residual deficits; E11.9 Type 2 diabetes mellitus without complications; I25.10 Atherosclerotic heart disease of native coronary artery without angina pectoris; I25.2 Old myocardial infarction; N40.0 Benign prostatic hyperplasia without lower urinary tract symptoms; I50.32 Chronic diastolic (congestive) heart failure; I10 Essential (primary) hypertension; F32.9 Major depressive disorder, single episode, unspecified; E78.5 Hyperlipidemia, unspecified; Z95.5 Presence of coronary angioplasty implant and graft; Z82.49 Family history of ischemic heart disease and other diseases of the circulatory system; Z83.3 Family history of diabetes mellitus; Z82.3 Family history of stroke; Z79.02 Long term (current) use of antithrombotics/antiplatelets; G47.30 Sleep apnea, unspecified; K21.9 Gastro-esophageal reflux disease without esophagitis

== ENCOUNTER → 2017-11-21 | Outpatient (CLI) | payer OTHER, MEDICARE ==
[~2017-11-21] MED LIST changes: +ACET-1256 PO; +OXYC-57 PO; +POTA20TA16 PO
[2017-11-21 15:44] LABS: BASO % 0.6 %; BASO ABS # 0.04 K/uL (0-0.2); EOS % 4.1 %; EOS ABS # 0.27 K/uL (0-0.5); HEMATOCRIT 38.6 % (42-52); IG# 0.02 K/uL (0.00-0.02); LYMPH % 32.2 %; LYMPH ABS # 2.11 K/uL (1.2-3.4); MEAN CELL VOLUME 88.9 fL (80-100); MEAN CORPUSCULAR HGB CONC 33.7 g/dl (32-36); MEAN PLATELET VOLUME 9.7 fL (7.4-10.4); MONO % 10.7 %; NEUT % 52.1 %; NEUT ABS # 3.42 K/uL (1.4-6.5); PLATELET COUNT 260 K/uL (130-400); RED CELL DISTRIBUTION WIDTH CV 14.5 % (11.5-14.5); RED CELL DISTRIBUTION WIDTH SD 47.2 fL (36.4-46.3); WHITE BLOOD COUNT 6.56 K/uL (4.8-10.8)
[2017-11-21 16:01] LABS: ALBUMIN 3.7 gm/dl (3.4-5.0); BLOOD UREA NITROGEN 13 mg/dl (7-18); CALCIUM 9.4 mg/dl (8.5-10.1); CARBON DIOXIDE 27 mmol/L (21-32); CREATININE 1.41 mg/dl (0.60-1.40); GLUCOSE 117 mg/dl (70-99); POTASSIUM 3.6 mmol/L (3.5-5.1); SODIUM 138 mmol/L (136-145)
[2017-11-21 16:12] LABS: PHOSPHORUS 2.3 mg/dl (2.5-4.9)
[2017-11-22 05:58] LABS: HEMOGLOBIN A1C 6.4 % (4.5-5.6)
== END | disposition home or self-care (01) ==
LOC: C.LAB1850 13:56
PROVIDERS: ATTEND Internal Medicine
DX: R53.83 Other fatigue (principal); N18.3 Chronic kidney disease, stage 3 (moderate); D64.9 Anemia, unspecified; R73.03 Prediabetes

== ENCOUNTER → 2018-01-16 | Outpatient (CLI) | payer OTHER, MEDICARE ==
[~2018-01-16] MED LIST changes: +POTA-639 PO; -POTA20TA16 PO
--- NOTE | 2018-01-16 16:04 | DIAGNOSTIC IMAGING REPORT ---
CT SCAN OF THE ABDOMEN AND PELVIS WITHOUT CONTRAST CLINICAL HISTORY: K61.0 Perianal [id number] COMPARISON STUDY: 08/16/2017 TECHNIQUE: CT scan of the abdomen and pelvis was performed from the lung bases to the proximal femurs. Images are reviewed in the axial, sagittal, and coronal planes. IV contrast was not administered for this examination. A dose lowering technique was utilized adhering to the principles of ALARA. CT DOSE: 1152.72 mGy.cm FINDINGS: The examination is compromised due to respiratory motion artifact Lower chest: There are dependent atelectatic changes present. Liver: The unenhanced liver is normal in size, contour, and attenuation. There is no intrahepatic biliary ductal dilatation. Gallbladder: Unremarkable. Spleen: Normal in size and attenuation. Pancreas: Unremarkable. Adrenal glands: Unremarkable. Kidneys: The unenhanced kidneys are normal in size without hydronephrosis. There is no contour deforming renal mass lesion. No renal calculi are identified. Bowel: There are no transition zones indicate bowel obstruction. There is no evidence of acute diverticulitis. There are no findings to indicate acute appendicitis. There is been resolution of the previous identified left perianal fluid collection. There is minimal residual thickening of the left perianal soft tissues. Peritoneum: There is no intraperitoneal free air or abdominal ascites. There is a small fat-containing left inguinal hernia. Vasculature: The abdominal aorta is normal in course and caliber. Adenopathy: None. Pelvic viscera: The bladder, and pelvic viscera are unremarkable. Skeletal structures: No destructive osseous lesions are seen. IMPRESSION: 1. Interval resolution of the previously identified left-sided perirenal fluid collection with minimal residual left perianal soft tissue thickening 2. No evidence of bowel obstruction. No evidence of free air 3. No acute inflammatory changes Electronically signed by: Monty Veloz M.D. 01/16/2018 4:03 PM Dictated Date/Time: 01/16/2018 3:58 PM
== END | disposition home or self-care (01) ==
LOC: C.CTS 15:26
PROVIDERS: ATTEND Urology
DX: K61.0 Anal abscess (principal)

== ENCOUNTER 2021-08-04 10:53 | Observation (INO) ==
[2021-08-04 11:51] LABS: POC Urine Bilirubin Negative (Negative); POC Urine Blood Trace (Negative); POC Urine Glucose Normal (Normal); POC Urine Ketones 1+ (Small) (Negative); POC Urine Leukocytes Negative (Negative); POC Urine Nitrite Negative (Negative); POC Urine Protein 1+ (Negative); POC Urine Urobilinogen Normal (Normal); POC Urine pH 6 (4.5-7.5)
[2021-08-04 11:51] LABS: Appearance Urine Clear (Clear); Bacteria Urine Automated Negative (Negative); Bilirubin Urine Negative (Negative); Blood Urine Negative (Negative); Color Urine Dark Yellow; Glucose Urine UA Negative (Negative); Ketones Urine Trace (Negative); Leukocyte Esterase Urine Negative (Negative); Nitrite Urine Negative (Negative); Protein Urine 2+ (Negative); RBC Urine Automated 0-4 /hpf (0-4); Specific Gravity Urine 1.017 (1.000-1.030); Urobilinogen Urine Negative (Negative); WBC Urine Automated 0 /hpf (0-5)
[2021-08-04] MEDS ORDERED: SODIUM CHLORIDE 0.9% 1000ML 500 ML IV ONE (13:37)
--- NOTE | 2021-08-04 13:40 | Emergency Department Note ---
Impression & Plan Perirectal abscess, Acute urinary retention ED Provider Note Name: JOHNSON PANG Age: 85 Sex: M Arrives Via: Walk-In Informant: Patient, Daughter ED Provider: Jag Chin MD Chief Complaint: rectal pain Impression: As Per Impressions above Medical Decision Makin-year-old gentleman with remote history of perirectal abscess arrives with several days worsening urinary retention symptoms and some rectal pain. On exam patient appears well mild discomfort but in no significant distress dress. Vital signs unremarkable without evidence of sepsis by exam or vital signs. Exam of rectum reveals large palpable area anterior rectum and perineum. Labs obtained which show inflammatory marker elevation. Blood cultures and lactate obtained lactate is unremarkable. Patient given some IV hydration. Patient was sent to CT for further evaluation of rectal fluctuance which reveals evidence of a 3 x 4 cm perirectal abscess. General surgery consulted antibiotics deferred to them as patient will most likely need surgical treatment. Following surgical evaluation patient notes he still having trouble urinating at times and thus agreeable to Lewis catheter placed by nursing with over a liter of urine output patient feeling much improved. Patient had chest x-ray and EKG done for perioperative evaluation along with Covid testing which was negative. Prior Medical Record and Triage/Nursing Notes reviewed by Me Additional history obtained from chart and daughter Differentials: Urinary retention, uti, renal failure, electrolyte imbalance, rectal/anal abscess, sepsis, forniers, amongst other pathologies. Vital Signs: reviewed and remarkable for no significant abnormalities Interventions: saline lock, nss infusion Labs:Reviewed and remarkable for crp elevation Imaging:See Below EKG:Per My Interpretation: Indication Pre Operative: SR 90 bpm with 1st av block, qtc 479. No Ectopy. No Ischemia. Compared to EKG 04/29/21 heart rate has increased and P wave appear flipped inf/lat. Cardiac/Tele Monitoring: Cardiac Monitoring: An Order was placed for continuous cardiac monitoring. The monitor shows a rate of 90 with a normal sinus rhythm. Consults:Dr Sam Gen Surg Plan: Disposition:Hospitalization. Condition: Good History of Present Illness:85 yr old male arrives for evaluation of rectal pain. Patient with several days of increasing rectal pain. Associated with decreased urine output. Worse with sitting and walking, better with laying on si de. notes increasing swelling around rectum. Previous rectal abscess requiring drainage. Denies current drainage nor bleeding. Last night with fevers/chills. No shortness of breath, chest pain, syncope, nausea, vomiting, back pain, headache, leg swelling, rashes nor other symptoms. No medications prior to arrival. Denies trauma, injuries, falls. On plavix daily. ROS: See above HPI for pertinent positives & negatives. A total of 10 systems reviewed and were otherwise negative. Past Medical History:See Below Past Surgical History:See Below Family History:See Below Social History:See Below Home Medications:See Below Allergies:See Below Vitals:Blood Pressure: 143/66, Pulse 91, RR 18, T 37.3C, O2 97% on RA Physical Exam: GENERAL: Patient is tired appearing and in mild distress. EYES: No scleral icterus, unremarkable pupils. ENT: Mucous membranes moist, no nasal congestion. NECK: No masses appreciated, nomeningismus, trachea is midline. RESPIRATORY: No dyspnea. Clear to auscultation and equal bilaterally. No wheeze, no rhonchi. CARDIOVASCULAR: Regular rate and rhythm.No murmurs, rubs, gallops appreciated. GASTROINTESTINAL: Abdomen soft, non-tender, no peritonitis.Bowel sounds positive.No masses appreciated. BACK: No midline tenderness, no CVA tenderness RECTAL: Large swelling and fluctuance of perineum extending to anus anteriorly EXTREMITIES: Normal motion all extremities, no cyanosis, no edema. NEUROLOGIC: Alert and oriented, no acute motor or sensory deficits, no focal weakness, cranial nerves grossly intact. SKIN: No rash, no jaundice, no diaphoresis. 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 arevalo Osteoarthritis Poor historian spoke w/ pt's (gilma) Right upper lobe pneumonia (2014) Screening due Sleep apnea bipap Stroke x3 - last episode 4-5 years ago - [facility] - does not follow w/ neurologist - w/ rt sided weakness to rle, some garbled speech - cause? Surgical History History of back surgery History of bilateral cataract extraction History of cardiac cath 2006 - [facility] [place] History of carpal tunnel surgery of right wrist History of colonoscopy History of coronary artery bypass graft ? vessels - [facility] [place] - 2006 - follows w/ dr. arevalo History of esophagogastroduodenoscopy (EGD) History of herniorrhaphy History of surgery I&D of perirectal abscess History of tonsillectomy History of tooth extraction Family History Sister Cancer Other No family history of adverse response to anesthesia Denies family history of Ovarian cancer Prostate cancer Breast cancer Colorectal cancer Social History Smoking Status: Never smoker Second Hand Exposure: Yes (work environment); Hx Alcohol Use: Yes Alcohol type: wine and hard liquor Hx Substance Use: No Preferred Language: Romansh Communication Ability: Effective Hearing Ability: Hard of Hearing Boarding Room Fixer Required: No Beliefs That Will Affect Care: None marital status: Current Living Situation: Spouse Current Living Situation Comment: Lives with current occupational status: retired Feels Safe at Home: Yes Childhood Exposure to Second-Hand Smoke: Yes caffeine: No Dental Care, Regularly: Yes Physical Activity Frequency: Does not Exercise Seatbelt Use: always Assistive Devices: Cane, CPAP, Denture - Lower, Glasses and Nebulizer Allergies Allergies Allergy/AdvReac Type Severity Reaction Status Date / Time latex Allergy Mild itchiness Verified 08/04/21 14:56 and rash Sulfa (Sulfonamide Allergy Mild Rash Verified 08/04/21 14:56 Antibiotics) [id number] Reductase Allergy Unknown UNKNOWN, Verified 08/04/21 14:56 Inhibitor PER [Cmeibfz-Raz-Yob Reductase PASQURELLO Inhibitor] chlorthalidone AdvReac Intermediate Leg pain, Verified 08/04/21 14:56 low sodium, weight loss ibuprofen AdvReac Intermediate HTN Verified 08/04/21 14:56 Home Meds Home Medications Medication Instructions Recorded Confirmed amlodipine 5 mg tablet 5 mg PO BID 08/15/18 08/04/21 clopidogrel 75 mg tablet 75 mg PO QAM 08/15/18 08/04/21 docusate sodium 100 mg tablet 100 mg PO BID 08/15/18 08/04/21 lisinopril 40 mg tablet 40 mg PO HS 08/15/18 08/04/21 metoprolol tartrate 50 mg tablet 50 mg PO BID 08/15/18 08/04/21 fluticasone furoate 200 1 inh INHALATION DAILY PRN 02/11/19 08/04/21 mcg-vilanterol 25 mcg/dose inhalation powder (Breo Ellipta) atorvastatin 40 mg tablet 40 mg PO DAILY tab 04/03/19 08/04/21 finasteride 5 mg tablet 5 mg PO DAILY tab 04/03/19 08/04/21 hydralazine 50 mg tablet 25 mg PO TID tab 04/03/19 08/04/21 acetaminophen 500 mg tablet 1,000 mg PO QAM PRN 09/08/20 08/04/21 polyethylene glycol 3350 17 17 g PO DAILY 09/08/20 08/04/21 gram/dose oral powder (Miralax) sertraline 100 mg tablet 100 mg PO DAILY 04/29/21 08/04/21 omeprazole 20 mg capsule,delayed 20 mg PO QAM cap 06/08/21 08/04/21 release multivitamin 1 tab PO DAILY 08/04/21 08/04/21 Previous Rx's Medication Instructions Recorded bupropion HCl 200 mg tablet,12 hr 200 mg PO DAILY #30 ea 09/16/19 sustained-release Wheeled Walker #1 ea 05/20/21 fluticasone propionate 50 1 spray INTRANASAL BID #16 g 06/28/21 mcg/actuation nasal spray,suspension (Flonase Allergy Relief) loratadine 10 mg tablet (Claritin) 10 mg PO DAILY #30 tab 06/28/21 Results & Data (ED) Vital Signs Vital Signs - 24 hr 08/04/21 11:17 08/04/21 14:03 08/04/21 15:26 Temperature 37.3 C Temperature Source Oral Pulse Rate 91 H 90 Pulse Rate [Right Finger] 66 Pulse Rate from SpO2 Sensor Pulse Rhythm [Right Finger] Regular Pulse Strength [Right Finger] Normal Respiratory Rate 18 20 21 Respiratory Effort / Characteristics Non-Labored Spontaneous Respiratory Depth Normal Respiratory Pattern Regular Blood Pressure 143/66 H Blood Pressure [Right Arm] 156/72 H Blood Pressure Mean 91 Blood Pressure Mean [Right Arm] 100 Blood Pressure Position [Right Arm] Sitting Pulse Oximetry 97 96 94 Oxygen Delivery Method Room Air Sepsis Recent Fever Within 48 Hours No Sepsis New/Unexplained Change in Mental Status No Sepsis Action Taken by Nursing No Action Required 08/04/21 15:30 08/04/21 15:40 Temperature Temperature Source Pulse Rate 92 H 90 Pulse Rate [Right Finger] Pulse Rate from SpO2 Sensor 90 Pulse Rhythm [Right Finger] Pulse Strength [Right Finger] Respiratory Rate 20 20 Respiratory Effort / Characteristics Respiratory Depth Respiratory Pattern Blood Pressure Blood Pressure [Right Arm] Blood Pressure Mean Blood Pressure Mean [Right Arm] Blood Pressure Position [Right Arm] Pulse Oximetry 94 94 Oxygen Delivery Method Sepsis Recent Fever Within 48 Hours Sepsis New/Unexplained Change in Mental Status Sepsis Action Taken by Nursing Laboratory Data Result diagrams: 08/04/21 13:46 08/04/21 13:46 Lab Results 08/04/21 08/04/21 08/04/21 Range/Units 11:40 11:46 13:46 WBC 16.46 H (4.8-10.8) K/uL RBC 4.34 L (4.7-6.1) M/uL Hgb 12.8 L (14.0-18.0) g/dL POC Hgb (14.0-18.0) g/dl Hct 39.2 L (42-52) % POC Hct (42-52) % MCV 90.3 (80-100) fL MCH 29.5 (25-34) pg MCHC 32.7 (32-36) g/dL RDW Std Deviation 46.4 H (36.4-46.3) fL RDW Coeff of Marie 13.9 (11.5-14.5) % Plt Count 246 (130-400) K/uL MPV 9.1 (7.4-10.4) fL Immature Gran % (Auto) 0.3 % Neut % (Auto) 78.3 % Lymph % (Auto) 9.7 % [place] % (Auto) 11.5 % Eos % (Auto) 0.1 % Baso % (Auto) 0.1 % Neut # (Auto) 12.89 H (1.4-6.5) K/uL Lymph # (Auto) 1.59 (1.2-3.4) K/uL [place] # (Auto) 1.90 H (0.11-0.59) K/uL Eos # (Auto) 0.01 (0-0.5) K/uL Baso # (Auto) 0.02 (0-0.2) K/uL Immature Gran # (Auto) 0.05 H (0.00-0.02) K/uL POC Sodium (135-144) mmol/L Sodium (136-145) mmol/L POC Potassium (3.3-5.0) mmol/L Potassium (3.5-5.1) mmol/L POC Chloride (101-112) mmol/L Chloride (98-107) mmol/L Carbon Dioxide (21-32) mmol/L POC Total CO2 (24-31) mmol/L Anion Gap (3-11) POC Anion Gap (16-25) mmol/L POC BUN (7-18) mg/dl BUN (7-18) mg/dl Creatinine (0.6-1.4) mg/dl POC Creatinine (0.6-1.3) mg/dl Est Cr Clr Drug Dosing ml/min Est GFR ( Amer) ml/min Est GFR (Non-Af Amer) ml/min BUN/Creatinine Ratio (10-20) Glucose (70-99) mg/dl POC Glucose (other) (70-99) mg/dl Lactate (0.4-2.0) mmol/L Calcium (8.5-10.1) mg/dl POC Ioniz Calcium Jarocho (1.12-1.32) mmol/l Total Bilirubin (0.2-1) mg/dl Direct Bilirubin (0-0.2) mg/dl AST (15-37) U/L ALT (12-78) U/L Alkaline Phosphatase (45-117) U/L C-Reactive Protein (0-0.29) mg/dl Total Protein (6.4-8.2) gm/dl Albumin (3.4-5.0) gm/dl Procalcitonin (0-0.5) ng/ml Urine Color Dark Yellow Urine Appearance Clear (Clear) Urine pH 7.0 (4.5-7.5) POC Urine pH 6 (4.5-7.5) Ur Specific [place] 1.017 (1.000-1.030) Urine Protein 2+ H (Negative) POC Urine Protein 1+ H (Negative) Urine Glucose (UA) Negative (Negative) POC Ur Glucose (UA) Normal (Normal) Urine Ketones Trace H (Negative) POC Urine Ketones 1+ (Small) H (Negative) Urine Blood Negative (Negative) POC Urine Blood Trace H (Negative) Urine Nitrite Negative (Negative) POC Urine Nitrite Negative (Negative) Urine Bilirubin Negative (Negative) POC Urine Bilirubin Negative (Negative) Urine Urobilinogen Negative (Negative) POC Urine Urobilinogen Normal (Normal) Ur Leukocyte Esterase Negative (Negative) POC U Leukocyte Esteras Negative (Negative) Urine WBC (Auto) 0 (0-5) /hpf Urine RBC (Auto) 0-4 (0-4) /hpf U Hyaline Cast (Auto) 1-5 (0-5) /lpf U Epithel Cells (Auto) 5-10 H (0-5) /lpf Urine Bacteria (Auto) Negative (Negative) SARS-CoV-2, RNA, NAAT (NEGATIVE) 08/04/21 08/04/21 08/04/21 Range/Units 13:46 13:46 13:46 WBC (4.8-10.8) K/uL RBC (4.7-6.1) M/uL Hgb (14.0-18.0) g/dL POC Hgb (14.0-18.0) g/dl Hct (42-52) % POC Hct (42-52) % MCV (80-100) fL MCH (25-34) pg MCHC (32-36) g/dL RDW Std Deviation (36.4-46.3) fL RDW Coeff of Marie (11.5-14.5) % Plt Count (130-400) K/uL MPV (7.4-10.4) fL Immature Gran % (Auto) % Neut % (Auto) % Lymph % (Auto) % [place] % (Auto) % Eos % (Auto) % Baso % (Auto) % Neut # (Auto) (1.4-6.5) K/uL Lymph # (Auto) (1.2-3.4) K/uL [place] # (Auto) (0.11-0.59) K/uL Eos # (Auto) (0-0.5) K/uL Baso # (Auto) (0-0.2) K/uL Immature Gran # (Auto) (0.00-0.02) K/uL POC Sodium (135-144) mmol/L Sodium 138 (136-145) mmol/L POC Potassium (3.3-5.0) mmol/L Potassium 3.7 (3.5-5.1) mmol/L POC Chloride (101-112) mmol/L Chloride 102 (98-107) mmol/L Carbon Dioxide 26 (21-32) mmol/L POC Total CO2 (24-31) mmol/L Anion Gap 10.0 (3-11) POC Anion Gap (16-25) mmol/L POC BUN (7-18) mg/dl BUN 15 (7-18) mg/dl Creatinine 1.38 (0.6-1.4) mg/dl POC Creatinine (0.6-1.3) mg/dl Est Cr Clr Drug Dosing 48.9 ml/min Est GFR ( Amer) 54.4 ml/min Est GFR (Non-Af Amer) 46.9 ml/min BUN/Creatinine Ratio 10.7 (10-20) Glucose 120 H (70-99) mg/dl POC Glucose (other) (70-99) mg/dl Lactate 1.6 (0.4-2.0) mmol/L Calcium 9.4 (8.5-10.1) mg/dl POC Ioniz Calcium Jarocho (1.12-1.32) mmol/l Total Bilirubin 1.7 H (0.2-1) mg/dl Direct Bilirubin 0.4 H (0-0.2) mg/dl AST 26 (15-37) U/L ALT 35 (12-78) U/L Alkaline Phosphatase 92 (45-117) U/L C-Reactive Protein 16.10 H (0-0.29) mg/dl Total Protein 7.9 (6.4-8.2) gm/dl Albumin 3.5 (3.4-5.0) gm/dl Procalcitonin 0.16 (0-0.5) ng/ml Urine Color Urine Appearance (Clear) Urine pH (4.5-7.5) POC Urine pH (4.5-7.5) Ur Specific [place] (1.000-1.030) Urine Protein (Negative) POC Urine Protein (Negative) Urine Glucose (UA) (Negative) POC Ur Glucose (UA) (Normal) Urine Ketones (Negative) POC Urine Ketones (Negative) Urine Blood (Negative) POC Urine Blood (Negative) Urine Nitrite (Negative) POC Urine Nitrite (Negative) Urine Bilirubin (Negative) POC Urine Bilirubin (Negative) Urine Urobilinogen (Negative) POC Urine Urobilinogen (Normal) Ur Leukocyte Esterase (Negative) POC U Leukocyte Esteras (Negative) Urine WBC (Auto) (0-5) /hpf Urine RBC (Auto) (0-4) /hpf U Hyaline Cast (Auto) (0-5) /lpf U Epithel Cells (Auto) (0-5) /lpf Urine Bacteria (Auto) (Negative) SARS-CoV-2, RNA, NAAT (NEGATIVE) 08/04/21 08/04/21 Range/Units 14:01 15:15 WBC (4.8-10.8) K/uL RBC (4.7-6.1) M/uL Hgb (14.0-18.0) g/dL POC Hgb 13.6 L (14.0-18.0) g/dl Hct (42-52) % POC Hct 40 L (42-52) % MCV (80-100) fL MCH (25-34) pg MCHC (32-36) g/dL RDW Std Deviation (36.4-46.3) fL RDW Coeff of Marie (11.5-14.5) % Plt Count (130-400) K/uL MPV (7.4-10.4) fL Immature Gran % (Auto) % Neut % (Auto) % Lymph % (Auto) % [place] % (Auto) % Eos % (Auto) % Baso % (Auto) % Neut # (Auto) (1.4-6.5) K/uL Lymph # (Auto) (1.2-3.4) K/uL [place] # (Auto) (0.11-0.59) K/uL Eos # (Auto) (0-0.5) K/uL Baso # (Auto) (0-0.2) K/uL Immature Gran # (Auto) (0.00-0.02) K/uL POC Sodium 138 (135-144) mmol/L Sodium (136-145) mmol/L POC Potassium 3.7 (3.3-5.0) mmol/L Potassium (3.5-5.1) mmol/L POC Chloride 96 L (101-112) mmol/L Chloride (98-107) mmol/L Carbon Dioxide (21-32) mmol/L POC Total CO2 30 (24-31) mmol/L Anion Gap (3-11) POC Anion Gap 17.0 (16-25) mmol/L POC BUN 16 (7-18) mg/dl BUN (7-18) mg/dl Creatinine (0.6-1.4) mg/dl POC Creatinine 1.3 (0.6-1.3) mg/dl Est Cr Clr Drug Dosing ml/min Est GFR ( Amer) ml/min Est GFR (Non-Af Amer) ml/min BUN/Creatinine Ratio (10-20) Glucose (70-99) mg/dl POC Glucose (other) 128 H (70-99) mg/dl Lactate (0.4-2.0) mmol/L Calcium (8.5-10.1) mg/dl POC Ioniz Calcium Jarocho 1.11 L (1.12-1.32) mmol/l Total Bilirubin (0.2-1) mg/dl Direct Bilirubin (0-0.2) mg/dl AST (15-37) U/L ALT (12-78) U/L Alkaline Phosphatase (45-117) U/L C-Reactive Protein (0-0.29) mg/dl Total Protein (6.4-8.2) gm/dl Albumin (3.4-5.0) gm/dl Procalcitonin (0-0.5) ng/ml Urine Color Urine Appearance (Clear) Urine pH (4.5-7.5) POC Urine pH (4.5-7.5) Ur Specific [place] (1.000-1.030) Urine Protein (Negative) POC Urine Protein (Negative) Urine Glucose (UA) (Negative) POC Ur Glucose (UA) (Normal) Urine Ketones (Negative) POC Urine Ketones (Negative) Urine Blood (Negative) POC Urine Blood (Negative) Urine Nitrite (Negative) POC Urine Nitrite (Negative) Urine Bilirubin (Negative) POC Urine Bilirubin (Negative) Urine Urobilinogen (Negative) POC Urine Urobilinogen (Normal) Ur Leukocyte Esterase (Negative) POC U Leukocyte Esteras (Negative) Urine WBC (Auto) (0-5) /hpf Urine RBC (Auto) (0-4) /hpf U Hyaline Cast (Auto) (0-5) /lpf U Epithel Cells (Auto) (0-5) /lpf Urine Bacteria (Auto) (Negative) SARS-CoV-2, RNA, NAAT NEGATIVE (NEGATIVE) Administered Medications Morphine Sulfate (Morphine Sulfate 4 Mg/Ml 1 Ml Carp\Vial) 4 mg IV Q3H PRN PRN Reason: Pain (6,7,8,9,10) Stop: 08/18/21 18:05 Last Admin: 08/04/21 18:27 Dose: 4 mg Documented by: [id number] Discontinued Medications Bupivacaine HCl (Bupivacaine 0.5 % 5 Mg/1 Ml Mpf 30ml Vial) Confirm Administered Dose 30 ml .ROUTE .STK-MED ONE Stop: 08/04/21 15:21 Last Admin: 08/04/21 15:42 Dose: Not Given Documented by: [id number] Epinephrine HCl (Epinephrine Inj 1 Mg/Ml Amp) Confirm Administered Dose 1 mg .ROUTE .STK-MED ONE Stop: 08/04/21 15:21 Last Admin: 08/04/21 15:42 Dose: Not Given Documented by: [id number] Gelatin (Gelatin Sponge Sz 100) Confirm Administered Dose 1 ea .ROUTE .STK-MED ONE Stop: 08/04/21 15:21 Last Admin: 08/04/21 15:42 Dose: Not Given Documented by: [id number] Sodium Chloride (Nss 1000ml) 500 mls @ 999 mls/hr IV .Q31M ONE Stop: 08/04/21 14:07 Last Infusion: 08/04/21 15:06 Dose: 0 mls/hr Documented by: [id number] Admin: 08/04/21 14:09 Dose: 999 mls/hr Documented by: [id number] Ioversol (Optiray 320 100ml) 90 ml IV ONCE ONE Stop: 08/04/21 14:26 Last Admin: 08/04/21 14:26 Dose: 90 ml Documented by: [id number] Imaging Data Radiologist's Impression: Abdomen/Pelvis CT 08/04/21 13:37 CT OF THE ABDOMEN AND PELVIS WITH CONTRAST CLINICAL HISTORY: Rectal abscess evaluation. COMPARISON STUDY: CT of the abdomen and pelvis January 16, 2018. Renal ultrasound January 08, 2021 TECHNIQUE: Following IV administration of 90 mL of Optiray, axial images of the abdomen and pelvis were obtained from the lung bases to the proximal femurs. Images were reviewed in the axial, sagittal, and coronal planes. IV contrast was administered without complication. Automated exposure control was utilized for the study. A dose lowering technique was utilized adhering to the principles of ALARA. CT DOSE: 2115.95 mGy.cm FINDINGS: No pneumatosis, free air or portal venous gas is present. There is cardiomegaly. The liver, spleen, adrenal glands, kidneys and pancreas are unremarkable. There is no hydronephrosis. No peripancreatic or pericholecystic infiltration is present. There is no biliary or pancreatic ductal dilatation. There is no evidence for a bowel obstruction. The caliber and wall thickness of small and large bowel are normal. There is no lymphadenopathy or ascites. Small fat-containing bilateral inguinal hernias are present. Note is made of infiltr ation within the subcutaneous tissues of the left buttock. There is a rim- enhancing 4.6 x 3.5 x 2.7 cm left perirectal fluid collection consistent with an abscess. No supralevator component is present. No additional fluid collections are noted. There is no soft tissue gas. IMPRESSION: 4.6 x 3.5 x 2.7 cm left perirectal abscess with associated cellulitis. No supralevator component. ACT 112: Negative or not required by law. Electronically signed by: Cm Soto M.D. 08/04/2021 2:47 PM Chest X-Ray 08/04/21 14:47 XR chest 1V portable CLINICAL HISTORY: pre-op. Evaluate cardiopulmonary status COMPARISON STUDY: 04/29/2021 TECHNIQUE: 1 view of the chest FINDINGS: Single frontal view of the chest demonstrates the heart to be mildly enlarged status post previous cardiothoracic surgery. The lungs are clear of alveolar opacities. There is no evidence for pleural effusion. There is no evidence for vascular congestion. There is no acute osseous pathology. IMPRESSION: There is again evidence for mild cardiomegaly with no acute chest disease. ACT 112: Negative or not required by law. Electronically signed by: Ernie Landis M.D. 08/04/2021 3:20 PM Discharge Plan Visit Data Chief Complaint: Urinary Symptoms Stated Complaint: HASN'T PEED IN A FEW DAYS/FELL 2x'S TODAY. ED Provider: Jag Chin Discharge Problem: Perirectal abscess, Acute urinary retention Patient Disposition: Admitted As Inpatient Discharge Instructions Interventions: ED Discharge Assessment Last Done: 08/04/21 17:42
[2021-08-04 14:15] LABS: Basophils # (auto) 0.02 K/uL (0-0.2); Basophils % (auto) 0.1 %; Eosinophils # (auto) 0.01 K/uL (0-0.5); Eosinophils % (auto) 0.1 %; Hematocrit (blood only) 39.2 % (42-52); Hemoglobin 12.8 g/dL (14.0-18.0); Immature Granulocytes # (auto) 0.05 K/uL (0.00-0.02); Immature Granulocytes % (auto) 0.3 %; Lymphocytes # (auto) 1.59 K/uL (1.2-3.4); Lymphocytes % (auto) 9.7 %; Mean Corpuscular Hemoglobin 29.5 pg (25-34); Mean Corpuscular Hgb Conc 32.7 g/dL (32-36); Mean Corpuscular Volume 90.3 fL (80-100); Mean Platelet Volume 9.1 fL (7.4-10.4); Monocytes % (auto) 11.5 %; Neutrophils # (auto) 12.89 K/uL (1.4-6.5); Neutrophils % (auto) 78.3 %; Platelet Count 246 K/uL (130-400); RDW Coefficient of Variation 13.9 % (11.5-14.5); RDW Standard Deviation 46.4 fL (36.4-46.3); Red Blood Count 4.34 M/uL (4.7-6.1); White Blood Count 16.46 K/uL (4.8-10.8)
[2021-08-04] MEDS ORDERED: OPTIRAY 320 100ml IV ONE (14:25)
[2021-08-04 14:28] LABS: Albumin Level 3.5 gm/dl (3.4-5.0); BUN Creatinine Ratio 10.7 (10-20); Bilirubin Direct 0.4 mg/dl (0-0.2); C Reactive Protein 16.1 mg/dl (0-0.29); Calcium 9.4 mg/dl (8.5-10.1); Creatinine Clr Calc Pharmacy 48.9 ml/min; Est GFR (African American) 54.4 ml/min; Est GFR (Non-African American) 46.9 ml/min; Potassium 3.7 mmol/L (3.5-5.1)
[2021-08-04 14:31] LABS: Bilirubin,Total 1.7 mg/dl (0.2-1); Total Protein 7.9 gm/dl (6.4-8.2)
--- NOTE | 2021-08-04 14:49 | CT Scan Report ---
CT OF THE ABDOMEN AND PELVIS WITH CONTRAST CLINICAL HISTORY: Rectal abscess evaluation. COMPARISON STUDY: CT of the abdomen and pelvis January 16, 2018. Renal ultrasound January 08, 2021 TECHNIQUE: Following IV administration of 90 mL of Optiray, axial images of the abdomen and pelvis we re obtained from the lung bases to the proximal femurs. Images were reviewed in the axial, sagittal, and coronal planes. IV contrast was administered without complication. Automated exposure control wa s utilized for the study. A dose lowering technique was utilized adhering to the principles of ALARA . CT DOSE: 2115.95 mGy.cm FINDINGS: No pneumatosis, free air or portal venous gas is present. There is cardiomegaly. The liver, spleen, adrenal glands, kidneys and pancreas are unremarkable. There is no hydronephrosis. No peripa ncreatic or pericholecystic infiltration is present. There is no biliary or pancreatic ductal dilatat ion. There is no evidence for a bowel obstruction. The caliber and wall thickness of small and large bowel are normal. There is no lymphadenopathy or ascites. Small fat-containing bilateral inguinal her nias are present. Note is made of infiltration within the subcutaneous tissues of the left buttock. T here is a rim-enhancing 4.6 x 3.5 x 2.7 cm left perirectal fluid collection consistent with an absces s. No supralevator component is present. No additional fluid collections are noted. There is no soft tissue gas. IMPRESSION: 4.6 x 3.5 x 2.7 cm left perirectal abscess with associated cellulitis. No supralevator c omponent. ACT 112: Negative or not required by law. Electronically signed by: Cm Soto M.D. 08/04/2021 2:47 PM
[2021-08-04] MEDS ORDERED: EPINEPHrine INJ 1 MG/ML AMP ONE (15:20)
[2021-08-04] MEDS ORDERED: GELATIN SPONGE SZ 100 ONE (15:20)
[2021-08-04] MEDS ORDERED: BUPIVACAINE 0.5 % 5 MG/1 ML MPF 30ML VIAL ONE (15:20)
--- NOTE | 2021-08-04 15:20 | Anesthesiology Consultation ---
Date of Service August 04, 2021 Assessment & Plan Chart Review Chart Review: Acceptable Risk for Surgery and Patient NOT seen in Pre Admission Testing Consults Requested none ASA ASA4E Proposed Anesthesia Anesthesia Type: Spinal Risk / Benefits Reviewed With: PT / POA / Parent / Guardian, Accepts Plan and Informed Consent Obtained History Surgery Operation Date: 08/04/21 15:50 Proposed Procedures p Incision and Drainage Perirectal Abscess - Rober Sam MD, FACS Height/Weight Height: 5 ft 11 in Weight: 100 kg Allergies Allergy/AdvReac Type Severity Reaction Status Date / Time latex Allergy Mild itchiness Verified 08/04/21 14:56 and rash Sulfa (Sulfonamide Allergy Mild Rash Verified 08/04/21 14:56 Antibiotics) Uupdgoh-FKS-XlI Reductase Allergy Unknown UNKNOWN, Verified 08/04/21 14:56 Inhibitor PER [Tgqhhzc-Wiw-Lsw Reductase PASQURELLO Inhibitor] chlorthalidone AdvReac Intermediate Leg pain, Verified 08/04/21 14:56 low sodium, weight loss ibuprofen AdvReac Intermediate HTN Verified 08/04/21 14:56 Medications Home Medications Medication Instructions Recorded Confirmed Last Taken amlodipine 5 mg tablet 5 mg PO BID 08/15/18 08/04/21 08/04/21 clopidogrel 75 mg tablet 75 mg PO QAM 08/15/18 08/04/21 08/04/21 docusate sodium 100 mg tablet 100 mg PO BID 08/15/18 08/04/21 08/04/21 lisinopril 40 mg tablet 40 mg PO HS 08/15/18 08/04/21 08/03/21 metoprolol tartrate 50 mg tablet 50 mg PO BID 08/15/18 08/04/21 08/04/21 fluticasone furoate 200 1 inh INHALATION DAILY PRN 02/11/19 08/04/21 02/19/19 mcg-vilanterol 25 mcg/dose inhalation powder (Breo Ellipta) atorvastatin 40 mg tablet 40 mg PO DAILY tab 04/03/19 08/04/21 08/03/21 finasteride 5 mg tablet 5 mg PO DAILY tab 04/03/19 08/04/21 08/04/21 hydralazine 50 mg tablet 25 mg PO TID tab 04/03/19 08/04/21 08/04/21 bupropion HCl 200 mg tablet,12 hr 200 mg PO DAILY #30 ea 09/16/19 08/04/21 08/04/21 sustained-release acetaminophen 500 mg tablet 1,000 mg PO QAM PRN 09/08/20 08/04/21 Unknown polyethylene glycol 3350 17 17 g PO DAILY 09/08/20 08/04/21 04/28/21 gram/dose oral powder (Miralax) sertraline 100 mg tablet 100 mg PO DAILY 04/29/21 08/04/21 08/03/21 Wheeled Walker #1 ea 05/20/21 05/20/21 Unknown omeprazole 20 mg capsule,delayed 20 mg PO QAM cap 06/08/21 08/04/21 08/04/21 release fluticasone propionate 50 1 spray INTRANASAL BID #16 g 06/28/21 08/04/21 Unknown mcg/actuation nasal spray,suspension (Flonase Allergy Relief) loratadine 10 mg tablet (Claritin) 10 mg PO DAILY #30 tab 06/28/21 08/04/21 08/03/21 multivitamin 1 tab PO DAILY 08/04/21 08/04/21 08/04/21 Past Medical History Medical History Anxiety Borderline diabetes mellitus BPH (benign prostatic hyperplasia) Congestive heart failure Constipation Depression GERD (gastroesophageal reflux disease) Hyperlipidemia Hypertension Myocardial Infarction 2006 - [employer] --> [place] --> CABG - follows w/ dr. arevalo Osteoarthritis Poor historian spoke w/ pt's (gilma) Right upper lobe pneumonia (2014) Screening due Sleep apnea bipap Stroke x3 - last episode 4-5 years ago - [facility] [place] - does not follow w/ neurologist - w/ rt sided weakness to rle, some garbled speech - cause? Exercise / Class Metabolic Activity III < 4 Walking/Shop/Light housework Past Family History Family History Sister Cancer Other No family history of adverse response to anesthesia Denies family history of Ovarian cancer Prostate cancer Breast cancer Colorectal cancer Past Surgical History Surgical History History of back surgery History of bilateral cataract extraction History of cardiac cath 2006 - [facility] [place] History of carpal tunnel surgery of right wrist History of colonoscopy History of coronary artery bypass graft ? vessels - [facility] [place] - 2006 - follows w/ dr. arevalo History of esophagogastroduodenoscopy (EGD) History of herniorrhaphy History of surgery I&D of perirectal abscess History of tonsillectomy History of tooth extraction Past Anesthesia History No Hx of Anesthesia Complications and No Family Hx of Anesthesia Complications History of PONV No Hx of PONV and No Hx of Motion Sickness Social History Smoking Status: Never smoker Hx Alcohol Use: Yes Alcohol type: wine and hard liquor alcohol intake frequency: a few times a month Hx Substance Use: No substance use type: does not use Physical Exam Vital Signs Last Vital Signs Temp 37.3 C 08/04/21 11:17 Pulse 66 08/04/21 14:03 Resp 20 08/04/21 14:03 BP 156/72 H 08/04/21 14:03 Pulse Ox 96 08/04/21 14:03 Testing Laboratory Results 08/04/21 13:46 08/04/21 13:46 Urine Color Dark Yellow 08/04/21 11:40 Urine Appearance Clear (Clear) 08/04/21 11:40 Urine pH 7.0 (4.5-7.5) 08/04/21 11:40 Ur Specific [place] 1.017 (1.000-1.030) 08/04/21 11:40 Urine Protein 2+ (Negative) H 08/04/21 11:40 Urine Glucose (UA) Negative (Negative) 08/04/21 11:40 Urine Ketones Trace (Negative) H 08/04/21 11:40 Urine Nitrite Negative (Negative) 08/04/21 11:40 Ur Leukocyte Esterase Negative (Negative) 08/04/21 11:40 Urine WBC (Auto) 0 /hpf (0-5) 08/04/21 11:40 Urine RBC (Auto) 0-4 /hpf (0-4) 08/04/21 11:40 U Hyaline Cast (Auto) 1-5 /lpf (0-5) 08/04/21 11:40 U Epithel Cells (Auto) 5-10 /lpf (0-5) H 08/04/21 11:40 Urine Bacteria (Auto) Negative (Negative) 08/04/21 11:40 Electrocardiogram Date: 04/29/21 Findings: + SB @ (at 58 w/ 1st degree AVB) Echocardiogram Date: 12/21/20 LV Function: normal RWMA: + none Valvular Disease: + MR (mild)
[2021-08-04 15:21] LABS: iSTAT Creatinine 1.3 mg/dl (0.6-1.3); iSTAT Potassium 3.7 mmol/L (3.3-5.0)
--- NOTE | 2021-08-04 15:21 | XRay Report ---
XR chest 1V portable CLINICAL HISTORY: pre-op. Evaluate cardiopulmonary status COMPARISON STUDY: 04/29/2021 TECHNIQUE: 1 view of the chest FINDINGS: Single frontal view of the chest demonstrates the heart to be mildly enlarged status post previous ca rdiothoracic surgery. The lungs are clear of alveolar opacities. There is no evidence for pleural eff usion. There is no evidence for vascular congestion. There is no acute osseous pathology. IMPRESSION: There is again evidence for mild cardiomegaly with no acute chest disease. ACT 112: Negative or not required by law. Electronically signed by: Ernie Landis M.D. 08/04/2021 3:20 PM
[2021-08-04 15:22] LABS: iSTAT Hemoglobin 13.6 g/dl (14.0-18.0); iSTAT Ionized Calcium 1.11 mmol/l (1.12-1.32)
--- NOTE | 2021-08-04 15:50 | History & Physical Report ---
Date of Service August 04, 2021 Assessment & Plan (1) Perirectal abscess: Plan: Will admit to surgical service for IV antibiotics and medical eval/optimization overnight and plan for EUA and I&D of perirectal abscess in the AM. Also uncertain of his last water/juice intake. Patient was seen with Dr. Sam in the ED. He is now having urinary urgency and we asked for him to be bladder scanned and lewis placed if needed. History of Present Illness Primary Care Provider: Дмитрий Shah MD 85 y/o male with several weeks of perianal pain and swelling increasing over the past few days. Was put on antibiotics by his PCP without much improvement. Today he was unable to urinate and came to the ED. [facility] Had previous I&D of perirectal abscess a few years ago by Dr. Tavarez. He had breakfast this morning around 8:00 but has been drinking liquids during the day and unsure of when last. Allergies Allergy/AdvReac Type Severity Reaction Status Date / Time latex Allergy Mild itchiness Verified 08/04/21 14:56 and rash Sulfa (Sulfonamide Allergy Mild Rash Verified 08/04/21 14:56 Antibiotics) Gzmjzaa-RXI-OpL Reductase Allergy Unknown UNKNOWN, Verified 08/04/21 14:56 Inhibitor PER [Nveglii-Czq-Xzp Reductase PASQURELLO Inhibitor] chlorthalidone AdvReac Intermediate Leg pain, Verified 08/04/21 14:56 low sodium, weight loss ibuprofen AdvReac Intermediate HTN Verified 08/04/21 14:56 Home Medications Medication Instructions Recorded Confirmed Type amlodipine 5 mg tablet 5 mg PO BID 08/15/18 08/04/21 History clopidogrel 75 mg tablet 75 mg PO QAM 08/15/18 08/04/21 History docusate sodium 100 mg tablet 100 mg PO BID 08/15/18 08/04/21 History lisinopril 40 mg tablet 40 mg PO HS 08/15/18 08/04/21 History metoprolol tartrate 50 mg tablet 50 mg PO BID 08/15/18 08/04/21 History fluticasone furoate 200 1 inh INHALATION DAILY PRN 02/11/19 08/04/21 History mcg-vilanterol 25 mcg/dose inhalation powder (Breo Ellipta) atorvastatin 40 mg tablet 40 mg PO DAILY tab 04/03/19 08/04/21 History finasteride 5 mg tablet 5 mg PO DAILY tab 04/03/19 08/04/21 History hydralazine 50 mg tablet 25 mg PO TID tab 04/03/19 08/04/21 History bupropion HCl 200 mg tablet,12 hr 200 mg PO DAILY #30 ea 09/16/19 08/04/21 Rx sustained-release acetaminophen 500 mg tablet 1,000 mg PO QAM PRN 09/08/20 08/04/21 History polyethylene glycol 3350 17 17 g PO DAILY 09/08/20 08/04/21 History gram/dose oral powder (Miralax) sertraline 100 mg tablet 100 mg PO DAILY 04/29/21 08/04/21 History Wheeled Walker #1 ea 05/20/21 05/20/21 Rx omeprazole 20 mg capsule,delayed 20 mg PO QAM cap 06/08/21 08/04/21 History release fluticasone propionate 50 1 spray INTRANASAL BID #16 g 06/28/21 08/04/21 Rx mcg/actuation nasal spray,suspension (Flonase Allergy Relief) loratadine 10 mg tablet (Claritin) 10 mg PO DAILY #30 tab 06/28/21 08/04/21 Rx multivitamin 1 tab PO DAILY 08/04/21 08/04/21 History Past Med/Surg History Medical History Anxiety Borderline diabetes mellitus BPH (benign prostatic hyperplasia) Congestive heart failure Constipation Depression GERD (gastroesophageal reflux disease) Hyperlipidemia Hypertension 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 arevalo Osteoarthritis Poor historian spoke w/ pt's (gilma) Right upper lobe pneumonia (2014) Screening due Sleep apnea bipap Stroke x3 - last episode 4-5 years ago - [facility] - does not follow w/ neurologist - w/ rt sided weakness to rle, some garbled speech - cause? Surgical History History of back surgery History of bilateral cataract extraction History of cardiac cath 2006 - [facility] [place] History of carpal tunnel surgery of right wrist History of colonoscopy History of coronary artery bypass graft ? vessels - [facility] [place] - 2007 - follows w/ dr. arevalo History of esophagogastroduodenoscopy (EGD) History of herniorrhaphy History of surgery I&D of perirectal abscess History of tonsillectomy History of tooth extraction Family History Sister Cancer Other No family history of adverse response to anesthesia Denies family history of Ovarian cancer Prostate cancer Breast cancer Colorectal cancer Social History Smoking Status: Never smoker Second Hand Exposure: Yes (work environment); Hx Alcohol Use: Yes Alcohol type: wine and hard liquor Hx Substance Use: No Preferred Language: Sri Lankan Communication Ability: Effective Hearing Ability: Hard of Hearing Staffing Mgr Required: No Beliefs That Will Affect Care: None marital status: Current Living Situation: Spouse Current Living Situation Comment: Lives with current occupational status: retired Feels Safe at Home: Yes Childhood Exposure to Second-Hand Smoke: Yes caffeine: No Dental Care, Regularly: Yes Physical Activity Frequency: Does not Exercise Seatbelt Use: always Assistive Devices: Cane, CPAP, Denture - Lower, Glasses and Nebulizer Review of Systems Constitutional: no fever, no chills and no anorexia Cardiovascular: no chest pain and no dyspnea Gastrointestinal: as per Subjective / HPI; no abdominal pain Genitourinary: + difficulty urinating Physical Exam Constitutional: WD/WN, vitals as above Respiratory: normal respiratory effort, lungs clear to auscultation Cardiovascular: RRR, no murmur, no edema Gastrointestinal (Abdomen): Inspection/Auscultation: abdomen normal to inspection; abdomen not distended Percussion/Palpation: abdomen soft Rectal Exam: + rectal tenderness (right perirectal erythema, induration and tenderness 6cm) Results & Data Results & Data ([facility]) Vital Signs (Past 12 Hours) Vital Signs Temp Pulse Pulse Resp BP BP Pulse Ox 08/04/21 14:03 66 20 156/72 H 96 08/04/21 11:17 37.3 C 91 H 18 143/66 H 97 Code Status & VTE Plan VTE Prophylaxis Plan VTE Prophylaxis will be ordered: Yes
--- NOTE | 2021-08-04 16:01 | Hospitalist Consultation ---
Date of Consultation August 04, 2021 Assessment & Plan (1) Perirectal abscess: Antibiotic management per primary surgical team Medical optimized for surgery at this time. No further cardiac workup warranted Revised cardiac risk index 2; 10.1% 30-day risk of , VT or cardiac arrest. he is an acceptable surgical risk given alterative Follow up blood and surgical cultures (2) Acute urinary retention: Continue lewis cath. Start tamsulosin 0.4mg PO HS. (3) BPH (benign prostatic hyperplasia): As above. Warrants TWOC post operatively but likely will need reinserted given severity of symptoms with urology follow up regardless. (4) History of coronary artery bypass graft: Continue on his routine medications: clopidogrel, metoprolol, lisinopril, atorvastatin (5) CKD (chronic kidney disease) stage 3, GFR 30-59 ml/min: At baseline. Repeat in AM. (6) Severe obstructive sleep apnea: CPAP HS (7) GERD (gastroesophageal reflux disease): Switch omeprazole for pantoprazole per hospital formulary (8) Hypertension: Given current hypertension and history of hypertensive urgency recommend continuing on all his usual meds pre-operatively. (9) Depression: Continue Sertraline 100mg PO daily and bupropion SR 200mg PO daily (10) History of stroke: Noted. Continue clopidogrel and atorvastatin. VTE Prophylaxis - deferred to primary team Diet - NPO after midnight Disposition - admit to med/surg History of Present Illness Reason for Consultation: Medical Management Requesting Physician: Yaw Singh PA-C Attending Physician: Dr Sam History of Present Illness Samson Romero is an 85 year old male who presents to the ER with perianal pain. He reports this has been going on for the last year however much worse in the last few days and was encouraged to come in by his daughter who is also his progressive care manager. He denies any fever or chills. He was also prompted to come to the ER due to inability to urinate. He reports longstanding problems with enlarged prostate and was recently taken off his tamsulosin.In the ER he was noted to have a large perirectal abscess on CT and on surgical review recommended to have this drained. He was bladder scanned for > 400ml post void in the ER therefore lewis catheter was inserted with approximately 800ml drained at the time shortly after insertion. He has a significant cardiac history with triple bypass CABG in 2007. Per his recent cardiology note in May he has been stable from a cardiology stand point. Last echocardiogram performed on December 22 through the [facility] showed normal LVEF and evidence of mild mitral regurgitation. EKG in the ER shows non specific ST and T wave abnormalities in the inferior leads. He reports his mobility is somewhat limited by osteoarthritis and cannot make it up a flight of stairs due to this but can walk 30 feet without chest pain or shortness of breath. Surgery consulted by the ER and recommending surgical management tomorrow. Medicine on consult for medical management. Allergies Allergy/AdvReac Type Severity Reaction Status Date / Time latex Allergy Mild itchiness Verified 08/04/21 14:56 and rash Sulfa (Sulfonamide Allergy Mild Rash Verified 08/04/21 14:56 Antibiotics) Ydcznpa-WUM-ZzA Reductase Allergy Unknown UNKNOWN, Verified 08/04/21 14:56 Inhibitor PER [Qmafjuy-Byv-Bgj Reductase PASQURELLO Inhibitor] chlorthalidone AdvReac Intermediate Leg pain, Verified 08/04/21 14:56 low sodium, weight loss ibuprofen AdvReac Intermediate HTN Verified 08/04/21 14:56 Home Medications Medication Instructions Recorded Confirmed Type amlodipine 5 mg tablet 5 mg PO BID 08/15/18 08/04/21 History clopidogrel 75 mg tablet 75 mg PO QAM 08/15/18 08/04/21 History docusate sodium 100 mg tablet 100 mg PO BID 08/15/18 08/04/21 History lisinopril 40 mg tablet 40 mg PO HS 08/15/18 08/04/21 History metoprolol tartrate 50 mg tablet 50 mg PO BID 08/15/18 08/04/21 History fluticasone furoate 200 1 inh INHALATION DAILY PRN 02/11/19 08/04/21 History mcg-vilanterol 25 mcg/dose inhalation powder (Breo Ellipta) atorvastatin 40 mg tablet 40 mg PO DAILY tab 04/03/19 08/04/21 History finasteride 5 mg tablet 5 mg PO DAILY tab 04/03/19 08/04/21 History hydralazine 50 mg tablet 25 mg PO TID tab 04/03/19 08/04/21 History bupropion HCl 200 mg tablet,12 hr 200 mg PO DAILY #30 ea 09/16/19 08/04/21 Rx sustained-release acetaminophen 500 mg tablet 1,000 mg PO QAM PRN 09/08/20 08/04/21 History polyethylene glycol 3350 17 17 g PO DAILY 09/08/20 08/04/21 History gram/dose oral powder (Miralax) sertraline 100 mg tablet 100 mg PO DAILY 04/29/21 08/04/21 History Wheeled Walker #1 ea 05/20/21 05/20/21 Rx omeprazole 20 mg capsule,delayed 20 mg PO QAM cap 06/08/21 08/04/21 History release fluticasone propionate 50 1 spray INTRANASAL BID #16 g 06/28/21 08/04/21 Rx mcg/actuation nasal spray,suspension (Flonase Allergy Relief) loratadine 10 mg tablet (Claritin) 10 mg PO DAILY #30 tab 06/28/21 08/04/21 Rx multivitamin 1 tab PO DAILY 08/04/21 08/04/21 History Patient History Medical History Anxiety Borderline diabetes mellitus BPH (benign prostatic hyperplasia) Congestive heart failure Constipation Depression GERD (gastroesophageal reflux disease) Hyperlipidemia Hypertension 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 arevalo Osteoarthritis Poor historian spoke w/ pt's (gilma) Right upper lobe pneumonia (2014) Screening due Sleep apnea bipap Stroke x3 - last episode 4-5 years ago - [facility] - does not follow w/ neurologist - w/ rt sided weakness to rle, some garbled speech - cause? Surgical History History of back surgery History of bilateral cataract extraction History of cardiac cath 2006 - [facility] [place] History of carpal tunnel surgery of right wrist History of colonoscopy History of coronary artery bypass graft ? vessels - [facility] [place] - 2006 - follows w/ dr. arevalo History of esophagogastroduodenoscopy (EGD) History of herniorrhaphy History of surgery I&D of perirectal abscess History of tonsillectomy History of tooth extraction Family History Sister Cancer Other No family history of adverse response to anesthesia Denies family history of Ovarian cancer Prostate cancer Breast cancer Colorectal cancer Social History Smoking Status: Former smoker Cigarettes Per Day: quit in 1959; Second Hand Exposure: No; Do You Dip or Chew Tobacco: No; Tobacco Cessation Education Requested by Patient: No Hx Alcohol Use: Yes Alcohol type: hard liquor Hx Substance Use: No Preferred Language: Faroese Communication Ability: Effective Hearing Ability: Hard of Hearing Offset Lithographic Press 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 Required: No Beliefs That Will Affect Care: None marital status: Current Living Situation: Spouse Current Living Situation Comment: Lives with current occupational status: retired Other Information That Helps Us Care for You: No Feels Safe at Home: Yes Safety Concerns: Feels Safe At This Time Childhood Exposure to Second-Hand Smoke: Yes caffeine: No Dental Care, Regularly: Yes Physical Activity Frequency: Does not Exercise Seatbelt Use: always Assistive Devices: CPAP, Denture - Lower, Glasses and Walker Review of Systems Review of Systems: All systems reviewed & are unremarkable except as noted in HPI & below Physical Exam Constitutional: well developed and + obese; no acute distress Eyes: + anicteric sclerae; normal pupil size ENMT: external ear and nose normal, oropharynx normal Neck: trachea midline, no thyromegaly Respiratory: normal respiratory effort, lungs clear to auscultation Cardiovascular: RRR, no murmur, no edema Gastrointestinal (Abdomen): Percussion/Palpation: abdomen soft; abdomen nontender, no guarding and abdomen not rigid Left sided tender rectal mass consistent with CT results of abscess without significant surrounding cellulitis Musculoskeletal: no cyanosis or clubbing, extremities motor strength 5/5 Neurologic: moves all extremities and awake; not confused Psychiatric: A+Ox3, euthymic affect Genitourinary: no CVA tenderness Results & Data Results & Data ([facility]) Vital Signs (Past 12 Hours) Vital Signs Temp Pulse Pulse Resp BP BP Pulse Ox 08/04/21 14:03 66 20 156/72 H 96 08/04/21 11:17 37.3 C 91 H 18 143/66 H 97 Diagnostic Findings XR chest 1V portable CLINICAL HISTORY: pre-op. Evaluate cardiopulmonary status COMPARISON STUDY: 04/29/2021 TECHNIQUE: 1 view of the chest FINDINGS: Single frontal view of the chest demonstrates the heart to be mildly enlarged status post previous cardiothoracic surgery. The lungs are clear of alveolar opacities. There is no evidence for pleural effusion. There is no evidence for vascular congestion. There is no acute osseous pathology. IMPRESSION: There is again evidence for mild cardiomegaly with no acute chest disease. CT OF THE ABDOMEN AND PELVIS WITH CONTRAST CLINICAL HISTORY: Rectal abscess evaluation. COMPARISON STUDY: CT of the abdomen and pelvis January 16, 2018. Renal ultrasound January 08, 2021 TECHNIQUE: Following IV administration of 90 mL of Optiray, axial images of the abdomen and pelvis were obtained from the lung bases to the proximal femurs. Images were reviewed in the axial, sagittal, and coronal planes. IV contrast was administered without complication. Automated exposure control was utilized for the study. A dose lowering technique was utilized adhering to the principles of ALARA. CT DOSE: 2115.95 mGy.cm FINDINGS: No pneumatosis, free air or portal venous gas is present. There is cardiomegaly. The liver, spleen, adrenal glands, kidneys and pancreas are unremarkable. There is no hydronephrosis. No peripancreatic or pericholecystic infiltration is present. There is no biliary or pancreatic ductal dilatation. There is no evidence for a bowel obstruction. The caliber and wall thickness of small and large bowel are normal. There is no lymphadenopathy or ascites. Small fat-containing bilateral inguinal hernias are present. Note is made of infiltration within the subcutaneous tissues of the left buttock. There is a rim-enhancing 4.6 x 3.5 x 2.7 cm left perirectal fluid collection consistent with an abscess. No supralevator component is present. No additional fluid collections are noted. There is no soft tissue gas. IMPRESSION: 4.6 x 3.5 x 2.7 cm left perirectal abscess with associated cellulitis. No supralevator component. Medications Administered ER Medications Given: NSS 500ml bolus ECG Rate (beats per minute): 90 Rhythm: other (ectopic atrial rhythm) Findings: + nonspecific-ST abn Comparison ECG Date: from (April 29, 2021) Change: the following changes noted (ectopic atrial rhythm is new) PG Care Time/CCT Total # of Minutes Spent Total Time Spent with Patient: Total time spent is greater than 50% in coordination of care (as documented) at patient's floor/unit and/or counseling patient: Coding Level of Care Code 83844 Office/OBS Consult Lvl 4 Diagnoses Perirectal abscess K61.1 History of coronary artery bypass graft Z95.1 CKD (chronic kidney disease) stage 3, GFR 30-59 ml/min N18.3 Severe obstructive sleep apnea G47.33 GERD (gastroesophageal reflux disease) K21.9 BPH (benign prostatic hyperplasia) N40.0 Acute urinary retention R33.8 Hypertension I10 Depression F32.9 History of stroke Z86.73
[2021-08-04] MEDS ORDERED: PIPERACILL/TAZOBAC CONSULT ACTIVE PRN (18:06)
[2021-08-04] MEDS ORDERED: MoRPHine SULFATE 4 MG/ML 1 ML CARP\\VIAL IV PRN (18:06)
[2021-08-04] MEDS ORDERED: oxyCODONE/ACETAMINOPHEN 5mg/325mg TAB PO PRN ×2 (18:06)
[2021-08-04] MEDS ORDERED: FLUTICASONE/VILANTEROL 200/25MCG 14 PUFFS/INHALER INH PRN (18:06)
[2021-08-04] MEDS ORDERED: MoRPHine SULFATE 2 MG/ML CARP IV PRN (18:06)
[2021-08-04] MEDS ORDERED: ONDANSETRON INJ 2 MG/ML 2 ML VIAL IV PRN (18:06)
[2021-08-04] MEDS ORDERED: ACETAMINOPHEN 500 MG TAB PO PRN (18:15)
[2021-08-04] MEDS ORDERED: PIPERACILLIN/TAZOBACTAM 3.375 GM in DEXTROSE 5% 100 ML IV ONE (18:45)
[2021-08-04] MEDS: METOPROLOL TARTRATE 50 MG TAB PO SCH (20:53)
[2021-08-04] MEDS: FLUTICASONE PROPIONATE NA SPR 16 GM BTL NAE SCH (20:53)
[2021-08-04] MEDS: hydrALAZINE HCL 25 MG TAB PO SCH (20:54)
[2021-08-04] MEDS: DOCUSATE SODIUM 100 MG CAP PO SCH (20:54)
[2021-08-04] MEDS: amLODIPine BESYLATE 5 MG TAB PO SCH (20:54)
[2021-08-04] MEDS: lisinopril 40 MG TAB PO SCH (20:54)
[2021-08-04] MEDS: TAMSULOSIN HCL 0.4 MG CAP PO SCH (21:49)
[2021-08-04] MEDS: PIPERACILLIN/TAZOBACTAM 3.375 GM in DEXTROSE 5% 100 ML IV SCH (23:19)
[2021-08-05 06:54] LABS: Basophils # (auto) 0.01 K/uL (0-0.2); Basophils % (auto) 0.1 %; Eosinophils # (auto) 0.07 K/uL (0-0.5); Eosinophils % (auto) 0.6 %; Hematocrit (blood only) 33.9 % (42-52); Hemoglobin 11.1 g/dL (14.0-18.0); Immature Granulocytes # (auto) 0.03 K/uL (0.00-0.02); Immature Granulocytes % (auto) 0.2 %; Lymphocytes # (auto) 1.61 K/uL (1.2-3.4); Lymphocytes % (auto) 13.3 %; Mean Corpuscular Hemoglobin 29.7 pg (25-34); Mean Corpuscular Hgb Conc 32.7 g/dL (32-36); Mean Corpuscular Volume 90.6 fL (80-100); Mean Platelet Volume 9.4 fL (7.4-10.4); Monocytes # (auto) 1.63 K/uL (0.11-0.59); Monocytes % (auto) 13.5 %; Neutrophils # (auto) 8.73 K/uL (1.4-6.5); Neutrophils % (auto) 72.3 %; Platelet Count 251 K/uL (130-400); RDW Coefficient of Variation 14.1 % (11.5-14.5); RDW Standard Deviation 46.8 fL (36.4-46.3); Red Blood Count 3.74 M/uL (4.7-6.1); White Blood Count 12.08 K/uL (4.8-10.8)
[2021-08-05] MEDS ORDERED: GELATIN SPONGE 12-7MM ONE (07:07)
[2021-08-05] MEDS ORDERED: GELATIN SPONGE SZ 100 ONE (07:08)
--- NOTE | 2021-08-05 07:09 | History & Physical Bridge Note ---
Date of Service August 05, 2021 History & Physical Bridge Note I have examined the patient, reviewed the History & Physical and in the interval since the performance of the History & Physical I have noted the following changes of clinical significance: no changes noted Feels much better than yesterday Be catheter been inserted approximately a liter urinary retention We will proceed with I&D perirectal abscess risk and complication explained to the patient including bleeding prolonged infection recurrence and he would like to proceed accordingly All questions answered Permit signed
--- NOTE | 2021-08-05 07:09 | Electrocardiogram Report ---
Test Reason : Blood Pressure : / mmHG Vent. Rate : 090 BPM Atrial Rate : 090 BPM P-R Int : 210 ms QRS Dur : 100 ms QT Int : 392 ms P-R-T Axes : 000 063 -46 degrees QTc Int : 479 ms Poor data quality, interpretation may be adversely affected Unusual P axis, possible ectopic atrial rhythm Nonspecific ST and T wave abnormality Abnormal ECG When compared with ECG of 29-APR-2021 19:31, Vent. rate has increased BY 34 BPM Ectopic atrial rhythm has replaced Sinus rhythm Confirmed by Charles Kitchen ([id number]) on 08/05/2021 7:09:24 AM Referred By: Keagan Shah Confirmed By:hCarles Kitchen
[2021-08-05] MEDS ORDERED: fentaNYL citrate 100 MCG/2 ML VIAL IV PRN (07:14)
[2021-08-05] MEDS ORDERED: ONDANSETRON INJ 2 MG/ML 2 ML VIAL IV PRN (07:14)
[2021-08-05] MEDS ORDERED: ePHEDrine sulfate 50 MG/ML AMP IV PRN (07:14)
[2021-08-05] MEDS ORDERED: ATROPINE SULFATE 0.1 MG/ML 10ML SYR IV PRN (07:14)
[2021-08-05 07:24] LABS: Calcium 9.1 mg/dl (8.5-10.1); Creatinine Clr Calc Pharmacy 46.6 ml/min; Est GFR (African American) 52.1 ml/min; Potassium 3.4 mmol/L (3.5-5.1)
[2021-08-05] MEDS ORDERED: LIDOCAINE 2% 2 ML VIAL/AMP(20MG/ML) INFIL ONE (07:24)
[2021-08-05] MEDS ORDERED: fentaNYL citrate 100 MCG/2 ML VIAL ONE (07:24)
[2021-08-05] MEDS ORDERED: PROPOFOL IV EMULSION 10 MG/ML 20 ML VIAL IV ONE (07:24)
--- NOTE | 2021-08-05 07:59 | Post Operative Brief Note ---
PG Immediate Post Op with CF Date of Surgery August 05, 2021 Pre & Post Diagnosis Operation Date: 08/05/21 07:30 Pre-Op Diagnosis: Perirectal abscess Post-Op Diagnosis: Perirectal abscess I identified the patient and participated in the time-out.: Yes Procedure Operation Date: 08/05/21 07:30 Actual Procedures p Incision and Drainage left Perirectal Abscess(Left) - Rober Sam MD, FACS Surgeon Rober Sam MD, FACS Physics Tutor O Estimated Blood Loss 10 Findings Consistent with Post-Op Diagnosis Specimens Specimen Description: none per surgeon Drains Be Catheter and Nicolas Drain
[2021-08-05] MEDS ORDERED: BUPIVACAINE/EPINEPHRINE 0.5% MPF 1:200,000 10 ML VIAL INJ ONE (08:06)
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
--- NOTE | 2021-08-05 08:22 | Anesthesiology Progress Note ---
Date of Service August 05, 2021 Anesthesia Post Procedure Vital Signs Vital Signs: Temp Pulse Pulse Pulse Resp BP BP 08/05/21 08:20 92 H 21 08/05/21 08:10 98.6 F 93 H 20 08/05/21 00:45 85 24 08/04/21 23:53 97.9 F 86 18 160/71 H 08/04/21 17:55 98.1 F 88 22 172/76 H 08/04/21 17:40 73 22 08/04/21 17:30 87 24 08/04/21 17:20 88 22 08/04/21 17:10 74 22 08/04/21 17:00 73 25 H 169/75 H 08/04/21 16:50 87 28 H 08/04/21 16:40 88 22 08/04/21 16:30 88 22 08/04/21 16:20 68 22 08/04/21 16:10 89 22 161/78 H 08/04/21 16:00 89 22 159/73 H 08/04/21 15:50 89 20 08/04/21 15:40 90 20 08/04/21 15:30 92 H 20 08/04/21 15:26 90 21 08/04/21 14:03 66 20 08/04/21 11:17 99.1 F 91 H 18 143/66 H BP Pulse Ox 08/05/21 08:20 154/78 H 98 08/05/21 08:10 145/81 H 98 08/05/21 00:45 93 08/04/21 23:53 93 08/04/21 17:55 94 08/04/21 17:40 96 08/04/21 17:30 96 08/04/21 17:20 99 08/04/21 17:10 99 08/04/21 17:00 94 08/04/21 16:50 95 08/04/21 16:40 96 08/04/21 16:30 96 08/04/21 16:20 96 08/04/21 16:10 96 08/04/21 16:00 95 08/04/21 15:50 94 08/04/21 15:40 94 08/04/21 15:30 94 08/04/21 15:26 94 08/04/21 14:03 156/72 H 96 08/04/21 11:17 97 Pain Intensity Rectal: Pain Intensity: 10 Transfer of Care Handoff Completed per policy Notes Mental Status: alert / awake / arousable and participated in evaluation Patient Amnestic to Procedure: Yes Nausea / Vomiting: adequately controlled Pain: adequately controlled Airway Patency, RR, SpO2: stable & adequate BP & HR: stable & adequate Hydration State: stable & adequate Anesthetic Complications: no major complications apparent and Pt Satisfied with anesthetic care
[2021-08-05] MEDS: PIPERACILLIN/TAZOBACTAM 3.375 GM in DEXTROSE 5% 100 ML IV SCH ×2 (09:05→16:54)
[2021-08-05] MEDS: amLODIPine BESYLATE 5 MG TAB PO SCH ×2 (10:29→20:11)
[2021-08-05] MEDS: buPROPion SR 100 MG TABCR PO SCH (10:30)
[2021-08-05] MEDS: ATORVASTATIN 40 MG TAB PO SCH (10:30)
[2021-08-05] MEDS: CLOPIDOGREL BISULFATE 75 MG TAB PO SCH (10:31)
[2021-08-05] MEDS: FINASTERIDE 5 MG TAB PO SCH (10:31)
[2021-08-05] MEDS: DOCUSATE SODIUM 100 MG CAP PO SCH ×2 (10:31→20:12)
[2021-08-05] MEDS: FLUTICASONE PROPIONATE NA SPR 16 GM BTL NAE SCH ×2 (10:32→20:12)
[2021-08-05] MEDS: hydrALAZINE HCL 25 MG TAB PO SCH ×3 (10:32→20:12)
[2021-08-05] MEDS: LORATADINE 10 MG TAB PO SCH (10:33)
[2021-08-05] MEDS: MULTIVITAMIN TAB PO SCH (10:33)
[2021-08-05] MEDS: METOPROLOL TARTRATE 50 MG TAB PO SCH ×2 (10:33→20:13)
[2021-08-05] MEDS: SERTRALINE HCL 100 MG TABLET PO SCH (10:34)
[2021-08-05] MEDS: PANTOprazole 40 MG TAB PO SCH (10:34)
--- NOTE | 2021-08-05 14:46 | Hospitalist Progress Note ---
Date of Service August 05, 2021 Assessment & Plan (1) Perirectal abscess: Plan: Antibiotic management per primary surgical team. - Follow up blood and surgical cultures - Continue Zosyn (2) Acute urinary retention: Plan: - Continue Be cath & tamsulosin 0.4mg PO HS. - Can trial voiding trial prior to discharge. - Follow up with urology as outpatient. (3) BPH (benign prostatic hyperplasia): Plan: As above. (4) History of coronary artery bypass graft: Plan: - Continue on his routine medications: clopidogrel, metoprolol, lisinopril, atorvastatin (5) CKD (chronic kidney disease) stage 3, GFR 30-59 ml/min: Plan: At baseline of Cr 1.4 - 1.6. - Monitor (6) Severe obstructive sleep apnea: Plan: - CPAP HS (7) GERD (gastroesophageal reflux disease): Plan: - Switch omeprazole for pantoprazole per hospital formulary (8) Hypertension: Plan: BP presently 150/80. - Continue usual home HTN meds (9) Depression: Plan: - Continue Sertraline 100mg PO daily and bupropion SR 200mg PO daily (10) History of stroke: Plan: Noted. - Continue clopidogrel and atorvastatin. (11) DVT prophylaxis: Plan: Per primary team. - Recommend heparin 5,000 units SQ Q12h when surgery is comfortable with it. Admission and Anticipated Discharge Date Admission Date: August 04, 2021 Subjective Doing well. Seen soon after surgery, and patient is quite groggy. Reports no fevers/chills, chest pain, shortness of breath, abdominal pain, nausea, or vomiting. Physical Exam Constitutional: WD/WN, vitals as above Eyes: EOM intact bilaterally; no conjunctival abnormality ENMT: external ear and nose normal, oropharynx normal Neck: trachea midline, no thyromegaly normal visual inspection Respiratory: normal respiratory effort, lungs clear to auscultation no respiratory distress Cardiovascular: RRR, no murmur, no edema Gastrointestinal (Abdomen): Inspection/Auscultation: abdomen normal to inspection; abdomen not distended Musculoskeletal: no cyanosis or clubbing, extremities motor strength 5/5 Skin: no rashes, warm and dry Neurologic: moves all extremities and awake Psychiatric: Orientation: alert, oriented to person and cooperative Results & Data Results & Data ([facility]) Vital Signs (Past 12 Hours) Vital Signs Temp Pulse Pulse Resp BP Pulse Ox 08/05/21 11:15 36.7 C 86 18 151/77 H 94 08/05/21 10:31 36.7 C 69 18 127/75 93 08/05/21 10:13 66 20 107/69 94 08/05/21 09:41 36.8 C 92 H 20 136/79 92 08/05/21 09:27 83 18 91 08/05/21 08:30 37.1 C 93 H 23 154/77 H 93 08/05/21 08:20 92 H 21 154/78 H 98 08/05/21 08:10 37.0 C 93 H 20 145/81 H 98 PG Care Time/CCT Total # of Minutes Spent Total Time Spent with Patient: Total time spent is greater than 50% in coordination of care (as documented) at patient's floor/unit and/or counseling patient: Coding Level of Care Code 91220 Subseq Hosp Care Lvl 3 Diagnoses Perirectal abscess K61.1 Acute urinary retention R33.8 BPH (benign prostatic hyperplasia) N40.0 History of coronary artery bypass graft Z95.1 CKD (chronic kidney disease) stage 3, GFR 30-59 ml/min N18.3 Severe obstructive sleep apnea G47.33 GERD (gastroesophageal reflux disease) K21.9 Hypertension I10 Depression F32.9 History of stroke Z86.73 DVT prophylaxis Z29.9
[2021-08-05] MEDS: lisinopril 40 MG TAB PO SCH (20:12)
[2021-08-05] MEDS: TAMSULOSIN HCL 0.4 MG CAP PO SCH (20:13)
[2021-08-06] MEDS: PIPERACILLIN/TAZOBACTAM 3.375 GM in DEXTROSE 5% 100 ML IV SCH ×3 (01:00→18:46)
--- NOTE | 2021-08-06 10:51 | Surgery Progress Note ---
Date of Service August 06, 2021 Assessment & Plan (1) Perirectal abscess: Plan: Doing much better. Will DC his Be catheter. If he is able to urinate he could potentially go home later today or tomorrow. We will call and discuss with his daughter who is basically in charge of his health care. Obviously if he cannot urinate we will need to replace the Be. We will consult social work coordinator regarding potential visiting nurses for wound care. (2) Acute urinary retention: Admission and Anticipated Discharge Date Admission Date: August 04, 2021 Subjective Patient seen. He is feeling much better. He would prefer to go home. He still has Be catheter in. Physical Exam Physical Exam: Alert. No acute distress The area of his abscess looks good. Nicolas in place. Minimal erythema and minimal tenderness. Results & Data ([facility]) Vital Signs (Past 12 Hours) Vital Signs Temp Pulse Pulse Pulse Resp BP Pulse Ox 08/06/21 07:29 36.8 C 77 16 120/63 95 08/06/21 00:51 84 20 94 08/05/21 22:56 36.7 C 84 18 147/70 H 93 PG Care Time/CCT Total # of Minutes Spent Total Time Spent with Patient: Total time spent is greater than 50% in coordination of care (as documented) at patient's floor/unit and/or counseling patient: Coding Level of Care Code None Diagnoses Perirectal abscess K61.1 Acute urinary retention R33.8
[2021-08-06] MEDS: amLODIPine BESYLATE 5 MG TAB PO SCH ×2 (11:00→20:39)
[2021-08-06] MEDS: ATORVASTATIN 40 MG TAB PO SCH (11:00)
[2021-08-06] MEDS: buPROPion SR 100 MG TABCR PO SCH (11:01)
[2021-08-06] MEDS: DOCUSATE SODIUM 100 MG CAP PO SCH ×2 (11:02→20:39)
[2021-08-06] MEDS: CLOPIDOGREL BISULFATE 75 MG TAB PO SCH (11:02)
[2021-08-06] MEDS: FLUTICASONE PROPIONATE NA SPR 16 GM BTL NAE SCH ×2 (11:03→20:39)
[2021-08-06] MEDS: FINASTERIDE 5 MG TAB PO SCH (11:03)
[2021-08-06] MEDS: hydrALAZINE HCL 25 MG TAB PO SCH ×3 (11:04→20:39)
[2021-08-06] MEDS: LORATADINE 10 MG TAB PO SCH (11:05)
[2021-08-06] MEDS: MULTIVITAMIN TAB PO SCH (11:05)
[2021-08-06] MEDS: SERTRALINE HCL 100 MG TABLET PO SCH (11:06)
[2021-08-06] MEDS: PANTOprazole 40 MG TAB PO SCH (11:06)
[2021-08-06] MEDS: METOPROLOL TARTRATE 50 MG TAB PO SCH ×2 (12:05→20:40)
--- NOTE | 2021-08-06 14:58 | Hospitalist Progress Note ---
Date of Service August 06, 2021 Assessment & Plan (1) Perirectal abscess: Plan: Antibiotic management per primary surgical team. - Follow up blood and surgical cultures - Continue Zosyn -> Could consider discharge on Augmentin +/- MRSA coverage (eg doxycycline) per surgical team. (2) Acute urinary retention: Plan: Be removed on 08/06. Able to void. - Continue tamsulosin 0.4mg PO HS on discharge. - Can f/u with PCP (3) BPH (benign prostatic hyperplasia): Plan: As above. (4) History of coronary artery bypass graft: Plan: - Continue on his routine medications: clopidogrel, metoprolol, lisinopril, atorvastatin (5) CKD (chronic kidney disease) stage 3, GFR 30-59 ml/min: Plan: At baseline of Cr 1.4 - 1.6. - Monitor - Presently at baseline. (6) Severe obstructive sleep apnea: Plan: - CPAP HS (7) GERD (gastroesophageal reflux disease): Plan: - Switch omeprazole for pantoprazole per hospital formulary (8) Hypertension: Plan: BP presently 120/60. - Continue usual home HTN meds (9) Depression: Plan: - Continue Sertraline 100mg PO daily and bupropion SR 200mg PO daily (10) History of stroke: Plan: Noted. - Continue clopidogrel and atorvastatin. (11) DVT prophylaxis: Plan: Per primary team. - Recommend heparin 5,000 units SQ Q12h when surgery is comfortable with it. Given medical stability, Hospital Medicine team will sign off. Please re-consult with any questions or concerns. Thank you for letting us assist in the care of this patient! Admission and Anticipated Discharge Date Admission Date: August 04, 2021 Subjective No issues today. His rectal pain is 2/10 today instead of 10/10. Reports no fevers/chills, chest pain, shortness of breath, abdominal pain, nausea, or vomiting. Physical Exam Constitutional: WD/WN, vitals as above Eyes: EOM intact bilaterally; no conjunctival abnormality ENMT: external ear and nose normal, oropharynx normal Neck: trachea midline, no thyromegaly normal visual inspection Respiratory: normal respiratory effort, lungs clear to auscultation no respiratory distress Cardiovascular: RRR, no murmur, no edema Gastrointestinal (Abdomen): Inspection/Auscultation: abdomen normal to inspection; abdomen not distended Musculoskeletal: no cyanosis or clubbing, extremities motor strength 5/5 Skin: no rashes, warm and dry Neurologic: moves all extremities and awake Psychiatric: Orientation: alert, oriented to person and cooperative Results & Data Results & Data ([facility]) Vital Signs (Past 12 Hours) Vital Signs Temp Pulse Resp BP Pulse Ox 08/06/21 07:29 36.8 C 77 16 120/63 95 PG Care Time/CCT Total # of Minutes Spent Total Time Spent with Patient: Total time spent is greater than 50% in coordination of care (as documented) at patient's floor/unit and/or counseling patient: Coding Level of Care Code 41175 Subseq Hosp Care Lvl 2 Diagnoses Perirectal abscess K61.1 Acute urinary retention R33.8 BPH (benign prostatic hyperplasia) N40.0 History of coronary artery bypass graft Z95.1 CKD (chronic kidney disease) stage 3, GFR 30-59 ml/min N18.3 Severe obstructive sleep apnea G47.33 GERD (gastroesophageal reflux disease) K21.9 Hypertension I10 Depression F32.9 History of stroke Z86.73 DVT prophylaxis Z29.9
[2021-08-06] MEDS: TAMSULOSIN HCL 0.4 MG CAP PO SCH (20:40)
[2021-08-06] MEDS: lisinopril 40 MG TAB PO SCH (20:40)
[2021-08-07] MEDS: PIPERACILLIN/TAZOBACTAM 3.375 GM in DEXTROSE 5% 100 ML IV SCH (02:54)
[2021-08-07] MEDS: buPROPion SR 100 MG TABCR PO SCH (09:20)
[2021-08-07] MEDS: amLODIPine BESYLATE 5 MG TAB PO SCH (09:20)
[2021-08-07] MEDS: ATORVASTATIN 40 MG TAB PO SCH (09:20)
[2021-08-07] MEDS: FINASTERIDE 5 MG TAB PO SCH (09:21)
[2021-08-07] MEDS: FLUTICASONE PROPIONATE NA SPR 16 GM BTL NAE SCH (09:21)
[2021-08-07] MEDS: DOCUSATE SODIUM 100 MG CAP PO SCH (09:21)
[2021-08-07] MEDS: CLOPIDOGREL BISULFATE 75 MG TAB PO SCH (09:21)
[2021-08-07] MEDS: LORATADINE 10 MG TAB PO SCH (09:22)
[2021-08-07] MEDS: hydrALAZINE HCL 25 MG TAB PO SCH (09:22)
[2021-08-07] MEDS: METOPROLOL TARTRATE 50 MG TAB PO SCH (09:23)
[2021-08-07] MEDS: MULTIVITAMIN TAB PO SCH (09:23)
[2021-08-07] MEDS: PANTOprazole 40 MG TAB PO SCH (09:23)
[2021-08-07] MEDS: SERTRALINE HCL 100 MG TABLET PO SCH (09:24)
--- NOTE | 2021-08-07 09:41 | Surgery Progress Note ---
Date of Service August 07, 2021 Assessment & Plan (1) Perirectal abscess: Plan: s/p I&D of irma rectal abscess pt clincally doing well. VSS, afebrile pain tolerable. + voiding and BM's home on flomax and recommended pt follow up with pcp plan on discharge to home today on a course of po augmentin. home health care set up. daily dressing changes with mepilex vs 4x4 gauze/medipore tape. encouraged sitz baths will go home with nava drain and follow up with dr. patten in clinic next week for follow up and drain removal Admission and Anticipated Discharge Date Admission Date: August 04, 2021 Subjective Patient is feeling well. He is voiding after lewis catheter removal and also having BM's. Some slight discomfort at incision site, but is much improved. Eager to go home. Physical Exam Physical Exam: awake/alert Gastrointestinal (Abdomen): I&D site with nava drain in place, scant drainage, minimal erythema Results & Data ([facility]) Vital Signs (Past 12 Hours) Vital Signs Temp Pulse Pulse Resp BP Pulse Ox 08/07/21 07:27 36.8 C 73 17 164/85 H 96 08/06/21 22:54 36.4 C L 64 16 145/74 H 96 08/06/21 22:35 64 18 94 PG Care Time/CCT Total # of Minutes Spent Total Time Spent with Patient: Total time spent is greater than 50% in coordination of care (as documented) at patient's floor/unit and/or counseling patient: Coding Level of Care Code None Diagnoses Perirectal abscess K61.1
--- NOTE | 2021-08-10 14:45 | Discharge Summary ---
Date of Service July Admission HPI Per Admitting Provider 85 y/o male with several weeks of perianal pain and swelling increasing over the past few days. Was put on antibiotics by his PCP without much improvement. Today he was unable to urinate and came to the ED. [facility]. Had previous I&D of perirectal abscess a few years ago by Dr. Tavarez. He had breakfast this morning around 8:00 but has been drinking liquids during the day and unsure of when last. Principal Diagnosis irma-rectal abscess Discharge Exam awake/alert Skin nava drain in place, scant drainage, minimal erythema Discharge Data Allergies Allergy/AdvReac Type Severity Reaction Status Date / Time latex Allergy Mild itchiness Verified 08/04/21 14:56 and rash Sulfa (Sulfonamide Allergy Mild Rash Verified 08/04/21 14:56 Antibiotics) Irjwmpb-DZA-RlD Reductase Allergy Unknown UNKNOWN, Verified 08/04/21 14:56 Inhibitor PER [Ojownix-Qya-Ceh Reductase PASQURELLO Inhibitor] chlorthalidone AdvReac Intermediate Leg pain, Verified 08/04/21 14:56 low sodium, weight loss ibuprofen AdvReac Intermediate HTN Verified 08/04/21 14:56 Consultations 08/04/21 14:47 ED Decision to Admit Stat 08/04/21 18:06 Consult Hospitalist Routine Procedures Performed Operation Date: 08/05/21 07:30 Actual Procedures p Incision and Drainage left Perirectal Abscess(Left) - Rober Sam MD, FACS Ordered Studies 08/04/21 13:37 CT abd pelvis IV con only Stat Hospital Course (1) Perirectal abscess: This is an 85yM who presented to the [facility] ED on 08/04/21 with several weeks of perianal pain. A CT a/p was performed that revealed a 4.6 x 3.5 x 2.7 cm left perirectal abscess with associated cellulitis. WBC 16. The patient was admitted under the surgery service with hospitalists consultation. He was started on IV abx and made NPO at midnight in prep for the OR the following day. On 08/05 the patient went to the OR with Dr. Sam for an I&D of irma- rectal abscess. The patient tolerated the procedure well, see op note for full details. The patient recovered in the PACU and was transferred to the med/surg floor in stable condition. Hospitalists have been following and a lewis was placed on admission due to urinary retention. On POD#1 the lewis catheter was removed and patient was able to void without issues. He had been started on flomax. Patient's pain was well controlled and a diet tolerated. On POD#2 I&D site with minimal erythema and drainage. Plan to discharge patient to home with nava drain in place. Home health care visits were set up. On 11 the patient was deemed stable for discharge to home and was given a prescription for augmentin to complete a course of abx at home and a script for flomax for his urinary issues. He was instructed to follow up in clinic with Dr. Sam within 1 week for nava drain removal. Total Time Total Time Spent Total Time Spent (In Minutes): 15 Discharge Plan Discharge Items Patient Disposition: Home - Home Health Services Reason For Visit: PERIRECTAL ABSCESS Discharge Diagnosis: incision and drainage of irma rectal abscess Activity: Per Instructions section Lifting: Gradually increase as tolerated Bathing: No limitations Bathing Comment: please perform sitz baths up to 3-4x/day Exercise/Sports: Gradually increase as tolerated Driving/Machine Use: Resume 1 day after discharge Non-emergency contact: Surgeon Call non-emergency contact if: you have any medication questions, your symptoms worsen, your pain is not controlled, you have a fever, your temperature is above 101.5, your wound has increased redness and your wound pain has increased Follow-up/Referrals: Дмитрий Shah MD [Primary Care Provider] - 08/13/21 2:00 pm (You are scheduled with Naila Sarmiento PA-C) Rober Sam MD, FACS [Surgeon] - (Please call to schedule follow up in clinic next week for drain removal) Diet: Regular Addtl Attending Provider Instructions: Please change wound dressing once daily and as needed with Mepilex or 4x4 gauze and medical tape You have a surgical drain that will be removed at your follow up appointment. Please call the office to schedule an appointment with Dr. Sam early next week You will be discharged on a new medication called Flomax to help you urinate. Please follow up with your PCP within 2 weeks to review the events of your recent hospitalization. Please complete the full course of antibiotics prescribed to you. You may purchase a sitz bath at the pharmacy and take them 3-4x/daily to help cleanse the area Pending Studies at Discharge: No Stand-Alone Forms: My [facility], Smoking Cessation Medications and DC Order Prescriptions: New amoxicillin-pot clavulanate [Augmentin] 875-125 mg tablet 1 tab PO Q12H Qty: 14 RF: 0 tamsulosin [Flomax] 0.4 mg capsule 0.4 mg PO HS Qty: 30 RF: 0 Continued bupropion HCl 200 mg tablet sustained-release 12 hr 200 mg PO DAILY Qty: 30 RF: 5 polyethylene glycol 3350 [Miralax] 17 gram/dose powder 17 g PO DAILY RF: 0 (DME) Wheeled Walker Misc See Rx Instructions .Route Qty: 1 RF: 0 loratadine [Claritin] 10 mg tablet 10 mg PO DAILY Qty: 30 RF: 3 fluticasone propionate [Flonase Allergy Relief] 50 mcg/actuation spray,suspension 1 spray intranasal BID Qty: 16 RF: 2 omeprazole 20 mg capsule,delayed release(DR/EC) 20 mg PO QAM RF: 0 finasteride 5 mg tablet 5 mg PO DAILY RF: 0 Breo Ellipta 200-25 mcg/dose Blister With Device 1 inh INHALATION DAILY PRN (Reason: Shortness Of Breath) RF: 0 acetaminophen 500 mg tablet 1,000 mg PO QAM PRN (Reason: Pain) RF: 0 clopidogrel 75 mg Tablet 75 mg PO QAM RF: 0 amlodipine 5 mg Tablet 5 mg PO BID RF: 0 metoprolol tartrate 50 mg Tablet 50 mg PO BID RF: 0 lisinopril 40 mg Tablet 40 mg PO HS RF: 0 docusate sodium 100 mg Tablet 100 mg PO BID RF: 0 atorvastatin 40 mg tablet 40 mg PO DAILY RF: 0 hydralazine 50 mg tablet 25 mg PO TID RF: 0 sertraline 100 mg Tablet 100 mg PO DAILY RF: 0 multivitamin Tablet 1 tab PO DAILY RF: 0 Discharge Orders: Discharge Order (Routine); Ordered 08/07/21 Ordered By: La Carpenter/Other Patient Handouts: Understanding Perianal Abscess Admission Data Admit Date/Time: 08/04/21 15:46 Attending Provider: Rober Sam Admit Provider: Rober Sam Primary Care Provider: Дмитрий Shah Other Providers: Scar Montiel ; Rober Sam ; Chris Lepe ; [facility] Other Interventions: Discharge Summary Assessment (RN) Last Done: 08/07/21 11:31 Coding Level of Care Code D/C DAY MANAGEMENT <30 MINS Diagnoses Perirectal abscess K61.1
== END 2021-08-07 12:15 | disposition home health service (06) ==
LOC: 3W 10:53 → ED 10:53 → 3W 17:42

== ENCOUNTER 2021-11-17 16:58 | Inpatient (IN) ==
--- NOTE | 2021-11-17 17:36 | Emergency Department Note ---
Impression & Plan Stroke-like symptom, Hypertensive urgency, CKD (chronic kidney disease) stage 3, GFR 30-59 ml/min ED Provider Note NAME: JOHNSON PANG AGE: 86 SEX: M ARRIVES VIA: Walk-In INFORMANT: Patient ED PROVIDER(S): Helio Rivers MD CHIEF COMPLAINT: Referred, Stroke symptoms PLAN: Disposition: Admit MEDICAL DECISION MAKING: The patient is a pleasant 86-year-old gentleman with a past medical history of hypertension, hyperlipidemia, BPH who presents to the emergency department accompanied by his daughter [facility] being seen there in follow-up for symptoms of imbalance with recurrent falls/near syncope. The patient has had the symptoms ongoing for several months and had an MRI performed in October that demonstrated small lacunar infarcts. Patient had a Holter monitor placed which to the patient's knowledge has not shown any findings. Patient did have an episode last night where he had reached over to grab the TV controller but when he turned around suddenly lost his balance and fell backwards onto the couch. He felt weakness in his right leg at this time. His daughter notes that he was also hypertensive during this. He denies any fevers, chills, cough, congestion, GI or symptoms. He does currently take Plavix and is on a statin. To the patient and daughter's understanding the [facility] wanted [facility] come to the emergency department for urgent CTA to evaluate potential causes for embolic stroke. Per [place] records the patient does have a history of orthostasis. On arrival the patient is no acute distress, afebrile with blood pressure 170/70s and vital signs otherwise stable. He exhibits slow motor movements in all extremities but no overt focal weakness. He does have a resting tremor at times of his left lower extremity. He does report that he also has difficulty at times fully flexing his bilateral upper arms which he exhibited during my exam but upon passive range of motion he then was able to perform active range of motion fully. EKG without overt acute ischemia. CXR negative for acute cardiopulmonary process. WBC and platelets wnl. H/H similar to prior range of values. Chemistry without acidosis. Cr. 1.5 within prior range of values. Electrolytes unremarkable. LFTs without significant abnormality. Troponin 0.03, wnl. UA without convincing evidence of infection. Covid-19 RNA, NAAT negative. CT head and CTA head and neck negative for acute ischemia, ICH, severe narrowing or occlusion of large vessels. Given patient's recurrent episodes of stroke-like symptoms in the setting of r ecent MRI demonstrating lacunar infarcts, reasonable to admit for further evaluation. Patient and daughter agreed with plan for admission. Case was discussed with Dr. Hoffmann, [facility] [place] hospitalist, who will evaluate the patient for admission. Triage Nursing notes reviewed and agree them. Prior medical records reviewed Vital Signs: reviewed and remarkable for HTN. Differential diagnosis: Infection, dehydration, metabolic abnormality, hypo/hyperglycemia, electrolyte disturbance, anemia, hypoxia, cardiac sources, intracerebral event, toxicologic, neurologic, as well as other pathologies. ER treatment provided: See below. Diagnostics interpreted by me: ECG: Sinus rhythm, 75 bpm, no ectopy, first degree AVB, incomplete RBBB, no overt ST elevation or depression. QTC 448 QRS 100. Cardiac Monitoring: An order for continuous cardiac monitoring was placed and demonstrated Sinus rhythm, 75 bpm, no ectopy. Laboratory studies: See below Imaging studies: See below Consultation(s): Case was discussed with Dr. Hoffmann [facility] [place] hospitalist, who will evaluate the patient for admission. HPI: The patient is a pleasant 86-year-old gentleman with a past medical history of hypertension, hyperlipidemia, BPH who presents to the emergency department accompanied by his daughter referred [facility] after being seen there in follow-up for symptoms of imbalance with recurrent falls/near syncope. The patient has had the symptoms ongoing for several months and had an MRI performed in October that demonstrated small lacunar infarcts. Patient had a Holter monitor placed which to the patient's knowledge has not shown any findings. Patient did have an episode last night where he had reached over to grab the TV controller but when he turned around suddenly lost his balance and fell backwards onto the couch. He felt weakness in his right leg at this time. His daughter notes that he was also hypertensive during this. He denies any fevers, chills, cough, congestion, GI or symptoms. He does currently take Plavix and is on a statin. To the patient and daughter's understanding the [facility] wanted them to come to the emergency department for urgent CTA to evaluate potential causes for embolic stroke. Per [facility] records the patient does have a history of orthostasis. ROS: See above HPI for pertinent positives & negatives. A total of 10 systems reviewed and were otherwise negative. VITALS:See Below PHYSICAL EXAMINATION: GENERAL: Awake, alert, well-appearing, in no distress HENT: Normocephalic, atraumatic. Oropharynx with dry mucous membranes and otherwise unremarkable. EYES: Normal conjunctiva. Sclera non-icteric. EOMI. No nystamgus. PEARRL. NECK: Supple. No nuchal rigidity. FROM. No JVD. RESPIRATORY: Clear to auscultation. CARDIAC: Regular rate, normal rhythm. Extremities warm and well perfused. Pulses equal. ABDOMEN: Soft, non-distended. No tenderness to palpation. No rebound or guarding. No masses. RECTAL: Deferred. MUSCULOSKELETAL: Chest examination reveals no tenderness. The back is symmetrical on inspection without obvious abnormality. There is no CVA tenderness to palpation. No joint edema. LOWER EXTREMITIES: Calves are equal size bilaterally and non-tender. No edema. No discoloration. NEURO: No focal sensory or motor deficits noted. Speech is fluent. Slow motor movement but 5/5 strength and SILT x 4 extremities. Difficulty fully flexing his bilateral upper arms however upon passive range of motion he then was able to perform full flexion. Cerebellar function intact including [id number], alternating palms, [id number]. SKIN: No rash or jaundice noted. 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 arevalo Osteoarthritis Poor historian spoke w/ pt's (gilma) Right upper lobe pneumonia (2014) Screening due Sleep apnea bipap Stroke x3 - last episode 4-5 years ago - [facility] - does not follow w/ neurologist - w/ rt sided weakness to rle, some garbled speech - cause? Surgical History History of back surgery History of bilateral cataract extraction [place] [facility] [place] History of carpal tunnel surgery of right wrist History of colonoscopy History of coronary artery bypass [place] [facility] [place] follows w/ dr. arevalo History of esophagogastroduodenoscopy (EGD) History of herniorrhaphy History of incision and drainage (08/05/21) Incision and Drainage left Perirectal Abscess Dr. Sam 08/05/2021 History of surgery I&D of perirectal abscess History of tonsillectomy History of tooth extraction Family History Sister Cancer Other No family history of adverse response to anesthesia Denies family history of Ovarian cancer Prostate cancer Breast cancer Colorectal cancer Social History Smoking Status: Never smoker Cigarettes Per Day: quit in 9; Second Hand Exposure: No; Hx Alcohol Use: Yes Alcohol type: hard liquor Hx Substance Use: No Preferred Language: Mohawk Communication Ability: Effective Hearing Ability: Hard of Hearing Nanny Caregiver Required: No Beliefs That Will Affect Care: None marital status: Current Living Situation: Spouse Current Living Situation Comment: At home with and daughter current occupational status: retired How many Children do You have: 1 Other Information That Helps Us Care for You: No Feels Safe at Home: Yes Safety Concerns: Feels Safe At This Time Childhood Exposure to Second-Hand Smoke: Yes caffeine: No Dental Care, Regularly: Yes Physical Activity Frequency: Does not Exercise Seatbelt Use: always Assistive Devices: Hearing Aid - Bilateral and Walker Allergies Allergies Allergy/AdvReac Type Severity Reaction Status Date / Time latex Allergy Mild itchiness Verified 11/17/21 17:52 and rash Sulfa (Sulfonamide Allergy Mild Rash Verified 11/17/21 17:52 Antibiotics) Nhanhzc-LYB-XwF Reductase Allergy Unknown UNKNOWN, Verified 11/17/21 17:52 Inhibitor PER [Scuasfu-Gsm-Fxe Reductase PASQURELLO Inhibitor] chlorthalidone AdvReac Intermediate Leg pain, Verified 11/17/21 17:52 low sodium, weight loss ibuprofen AdvReac Intermediate HTN Verified 11/17/21 17:52 Home Meds Home Medications Medication Instructions Recorded Confirmed amlodipine 5 mg tablet 5 mg PO BID 08/15/18 11/17/21 clopidogrel 75 mg tablet 75 mg PO QAM 08/15/18 11/17/21 lisinopril 40 mg tablet 40 mg PO HS 08/15/18 11/17/21 metoprolol tartrate 50 mg tablet 50 mg PO BID 08/15/18 11/17/21 fluticasone furoate 200 1 inh INHALATION DAILY PRN 02/11/19 11/17/21 mcg-vilanterol 25 mcg/dose inhalation powder (Breo Ellipta) atorvastatin 40 mg tablet 40 mg PO DAILY tab 04/03/19 11/17/21 finasteride 5 mg tablet 5 mg PO DAILY tab 04/03/19 11/17/21 polyethylene glycol 3350 17 17 g PO DAILY PRN 09/08/20 11/17/21 gram/dose oral powder (Miralax) sertraline 100 mg tablet 100 mg PO DAILY 04/29/21 11/17/21 omeprazole 20 mg capsule,delayed 20 mg PO QAM cap 06/08/21 11/17/21 release multivitamin 1 tab PO DAILY 08/04/21 11/17/21 hydralazine 50 mg tablet 25 mg PO TID tab 10/19/21 11/17/21 senna-docusate sodium tablet 1 tab PO DAILY 11/17/21 11/17/21 Previous Rx's Medication Instructions Recorded bupropion HCl 200 mg tablet,12 hr 200 mg PO DAILY #30 ea 09/16/19 sustained-release Wheeled Walker #1 ea 05/20/21 tamsulosin 0.4 mg capsule (Flomax) 0.4 mg PO HS #30 cap 08/06/21 Results & Data (ED) Vital Signs Vital Signs - 24 hr 11/17/21 16:59 11/17/21 19:21 Temperature 36.4 C L Temperature Source Temporal Artery Scan Pulse Rate 62 Pulse Rate [Apical] 65 Pulse Rhythm Regular Pulse Strength Normal Respiratory Rate 20 22 Respiratory Effort / Characteristics Non-Labored Spontaneous SOB on Exertion Respiratory Depth Normal Respiratory Pattern Regular Blood Pressure 173/72 H Blood Pressure [Right Arm] 171/86 H Blood Pressure Mean 105 Blood Pressure Mean [Right Arm] 114 Blood Pressure Position Sitting Pulse Oximetry 95 95 Oxygen Delivery Method Room Air Room Air Sepsis Recent Fever Within 48 Hours No Sepsis New/Unexplained Change in Mental Status N/A Sepsis Action Taken by Nursing No Action Required Laboratory Data Attestation: I reviewed the patient's lab results. Result diagrams: 11/17/21 17:49 11/17/21 17:49 Lab Results 11/17/21 11/17/2111/17/22 Range/Units 17:49 17:49 17:49 WBC 7.06 (4.8-10.8) K/uL RBC 4.49 L (4.7-6.1) M/uL Hgb 13.2 L (14.0-18.0) g/dL Hct 39.9 L (42-52) % MCV 88.9 (80-100) fL MCH 29.4 (25-34) pg MCHC 33.1 (32-36) g/dL RDW Std Deviation 45.9 (36.4-46.3) fL RDW Coeff of Marie 14.1 (11.5-14.5) % Plt Count 270 (130-400) K/uL MPV 9.2 (7.4-10.4) fL Immature Gran % (Auto) 0.0 % Neut % (Auto) 54.5 % Lymph % (Auto) 30.5 % [place] % (Auto) 9.6 % Eos % (Auto) 5.1 % Baso % (Auto) 0.3 % Neut # (Auto) 3.85 (1.4-6.5) K/uL Lymph # (Auto) 2.15 (1.2-3.4) K/uL [place] # (Auto) 0.68 H (0.11-0.59) K/uL Eos # (Auto) 0.36 (0-0.5) K/uL Baso # (Auto) 0.02 (0-0.2) K/uL Immature Gran # (Auto) 0.00 (0.00-0.02) K/uL PT 10.4 (9.0-12.0) Seconds INR 1.0 (0.9-1.1) APTT 26.8 (21.0-31.0) Seconds PTT Ratio 1.0 Sodium 137 (136-145) mmol/L Potassium 3.8 (3.5-5.1) mmol/L Chloride 101 (98-107) mmol/L Carbon Dioxide 26 (21-32) mmol/L Anion Gap 10 (3-11) BUN 19 (6-23) mg/dl Creatinine 1.54 H (0.6-1.4) mg/dl Est Cr Clr Drug Dosing 42.6 ml/min Est GFR ( Amer) 47.3 ml/min Est GFR (Non-Af Amer) 40.8 ml/min BUN/Creatinine Ratio 12.3 (10-20) Glucose 139 H (70-99(Fasting)) mg/dl Calcium 9.2 (8.5-10.1) mg/dl Phosphorus 3.3 (2.5-4.9) mg/dl Magnesium 2.1 (1.7-2.4) mg/dl Total Bilirubin 0.7 (0.2-1.0) mg/dl AST 17 (13-39) U/L ALT 31 (7-52) U/L Alkaline Phosphatase 100 (34-104) U/L Troponin I 0.03 (0-0.04) ng/ml Total Protein 7.8 (6.0-8.3) gm/dl Albumin 4.4 (3.4-5.0) gm/dl Globulin 3.4 (2.5-4.0) gm/dl Albumin/Globulin Ratio 1.3 (0.9-2) Urine Color Urine Appearance (Clear) Urine pH (4.5-7.5) Ur Specific [place] (1.000-1.030) Urine Protein (Negative) Urine Glucose (UA) (Negative) Urine Ketones (Negative) Urine Blood (Negative) Urine Nitrite (Negative) Urine Bilirubin (Negative) Urine Urobilinogen (Negative) Ur Leukocyte Esterase (Negative) 11/17/21 Range/Units 19:22 WBC (4.8-10.8) K/uL RBC (4.7-6.1) M/uL Hgb (14.0-18.0) g/dL Hct (42-52) % MCV (80-100) fL MCH (25-34) pg MCHC (32-36) g/dL RDW Std Deviation (36.4-46.3) fL RDW Coeff of Marie (11.5-14.5) % Plt Count (130-400) K/uL MPV (7.4-10.4) fL Immature Gran % (Auto) % Neut % (Auto) % Lymph % (Auto) % [place] % (Auto) % Eos % (Auto) % Baso % (Auto) % Neut # (Auto) (1.4-6.5) K/uL Lymph # (Auto) (1.2-3.4) K/uL [place] # (Auto) (0.11-0.59) K/uL Eos # (Auto) (0-0.5) K/uL Baso # (Auto) (0-0.2) K/uL Immature Gran # (Auto) (0.00-0.02) K/uL PT (9.0-12.0) Seconds INR (0.9-1.1) APTT (21.0-31.0) Seconds PTT Ratio Sodium (136-145) mmol/L Potassium (3.5-5.1) mmol/L Chloride (98-107) mmol/L Carbon Dioxide (21-32) mmol/L Anion Gap (3-11) BUN (6-23) mg/dl Creatinine (0.6-1.4) mg/dl Est Cr Clr Drug Dosing ml/min Est GFR ( Amer) ml/min Est GFR (Non-Af Amer) ml/min BUN/Creatinine Ratio (10-20) Glucose (70-99(Fasting)) mg/dl Calcium (8.5-10.1) mg/dl Phosphorus (2.5-4.9) mg/dl Magnesium (1.7-2.4) mg/dl Total Bilirubin (0.2-1.0) mg/dl AST (13-39) U/L ALT (7-52) U/L Alkaline Phosphatase (34-104) U/L Troponin I (0-0.04) ng/ml Total Protein (6.0-8.3) gm/dl Albumin (3.4-5.0) gm/dl Globulin (2.5-4.0) gm/dl Albumin/Globulin Ratio (0.9-2) Urine Color Yellow Urine Appearance Clear (Clear) Urine pH 7.5 (4.5-7.5) Ur Specific [place] 1.016 (1.000-1.030) Urine Protein Negative (Negative) Urine Glucose (UA) Negative (Negative) Urine Ketones Negative (Negative) Urine Blood Negative (Negative) Urine Nitrite Negative (Negative) Urine Bilirubin Negative (Negative) Urine Urobilinogen Negative (Negative) Ur Leukocyte Esterase Negative (Negative) Administered Medications Amlodipine Besylate (Amlodipine Besylate 5 Mg Tab) 5 mg PO BID MARKEL Stop: 12/17/21 23:31 Last Admin: 11/18/21 01:07 Dose: 5 mg Documented by: [id number] Enoxaparin Sodium (Enoxaparin Inj 40 Mg/0.4 Ml Syr) 40 mg SQ HS [facility] Stop: 12/17/21 23:44 Last Admin: 11/18/21 01:07 Dose: 40 mg Documented by: [id number] Hydralazine HCl (Hydralazine Hcl 25 Mg Tab) 25 mg PO TID MARKEL Stop: 12/17/21 23:31 Last Admin: 11/18/21 01:07 Dose: 25 mg Documented by: [id number] Lisinopril (Lisinopril 40 Mg Tab) 40 mg PO MARKEL Stop: 12/17/21 23:31 Last Admin: 11/18/21 01:06 Dose: 40 mg Documented by: [id number] Metoprolol Tartrate (Metoprolol Tartrate 50 Mg Tab) 50 mg PO BID MARKEL Stop: 12/17/21 23:31 Last Admin: 11/18/21 01:06 Dose: 50 mg Documented by: [id number] Tamsulosin HCl (Tamsulosin Hcl 0.4 Mg Cap) 0.4 mg PO [facility] Stop: 12/17/21 23:31 Last Admin: 11/18/21 01:06 Dose: 0.4 mg Documented by: [id number] Discontinued Medications Acetaminophen (Acetaminophen 500 Mg Tab) 1,000 mg PO NOW STA Stop: 11/17/21 20:11 Last Admin: 11/17/21 20:49 Dose: 1,000 mg Documented by: [id number] Sodium Chloride (Nss) 500 mls @ 125 mls/hr IV .Q4H MARKEL Stop: 12/17/21 17:29 Last Infusion: 11/18/21 00:49 Dose: 0 mls/hr Documented by: [id number] Infusion: 11/18/21 00:49 Dose: 0 mls/hr Documented by: [id number] Admin: 11/17/21 20:53 Dose: 125 mls/hr Documented by: [id number] Infusion: 11/17/21 20:19 Dose: 0 mls/hr Documented by: [id number] Admin: 11/17/21 18:03 Dose: 125 mls/hr Documented by: [id number] Thiamine HCl 200 mg/ Sodium (Chloride) 52 mls @ 208 mls/hr IV NOW STA Stop: 11/17/21 21:09 Last Admin: 11/18/21 00:46 Dose: Not Given Documented by: [id number] Ioversol (Optiray 320 125ml) 120 ml IV ONCE ONE Stop: 11/17/21 19:22 Last Admin: 11/17/21 19:21 Dose: 120 ml Documented by: [id number] Imaging Data Radiologist's Impression: Chest X-Ray 11/17/21 17:28 XR chest 1V portable CLINICAL HISTORY: Stroke Like Symptoms TECHNIQUE: Single frontal radiograph of the chest was obtained. Comparison: Comparison is made to chest one view 08/04/2021 FINDINGS: No lines and tubes are seen. Cardiomegaly is noted. The lungs are clear. No evidence of pleural effusion or pneumothorax. IMPRESSION: No acute chest disease. ACT 112: Negative or not required by law. Electronically signed by: Aleksandar Musa M.D. 11/17/2021 5:[address] 11/17/21 17:28 CT angio neck with con, CT angio head w con, CT head/brain wo con CLINICAL HISTORY: Stroke Like Symptoms TECHNIQUE: Contiguous axial CT images of the head were acquired from the base of the skull to the vertex without intravenous contrast administration. CT angiography of the head and neck was performed following intravenous administration of iodinated contrast. Coronal and sagittal MIPS were obtained from the axial data set and were submitted for review. Automated dose lowering techniques and/or adjustment according to patient size were utilized for this examination. All measurements were calculated based on NASCET criteria. Comparison: None available at the time of this dictation. FINDINGS: CT head: There is no acute intracranial hemorrhage or evidence of acute territorial infarction. No shift of the midline structures, mass effect, or extra-axial abnormalities are shown. Biapical scarring is seen. CTA Neck: The left common carotid artery shares common origin with the innominate artery. Atherosclerotic plaque is present in the aortic arch and at the origin of the great vessels. The common carotid, external carotid, cervical segments of the internal carotid arteries, and the cervical segments of the vertebral arteries are patent without hemodynamically significant stenosis. The right vertebral artery is dominant. CTA Head: The anterior and posterior cerebral circulations are patent. No hemodynamically significant stenosis, aneurysm, dissection, or arteriovenous malformation is shown. origin of the right posterior cerebral artery is seen. IMPRESSION: 1. No acute intracranial hemorrhage, evidence of acute territorial infarction, or other acute intracranial disease process. 2. No occlusion, hemodynamically significant stenosis, aneurysm, dissection, or arteriovenous malformation in the major intracranial arteries. 3. No occlusion, hemodynamically significant stenosis, or dissection in the major cervical arteries. Assessment of stenosis of the internal carotid arteries is based on NASCET criteria. ACT 112: Negative or not required by law. Electronically signed by: Aleksandar Musa M.D. 11/17/2021 7:35 PM Head CTA 11/17/21 17:28 CT angio neck with con, CT angio head w con, CT head/brain wo con CLINICAL HISTORY: Stroke Like Symptoms TECHNIQUE: Contiguous axial CT images of the head were acquired from the base of the skull to the vertex without intravenous contrast administration. CT angiography of the head and neck was performed following intravenous administration of iodinated contrast. Coronal and sagittal MIPS were obtained from the axial data set and were submitted for review. Automated dose lowering techniques and/or adjustment according to patient size were utilized for this examination. All measurements were calculated based on NASCET criteria. Comparison: None available at the time of this dictation. FINDINGS: CT head: There is no acute intracranial hemorrhage or evidence of acute territorial infarction. No shift of the midline structures, mass effect, or extra-axial abnormalities are shown. Biapical scarring is seen. CTA Neck: The left common carotid artery shares common origin with the innomi jeremy artery. Atherosclerotic plaque is present in the aortic arch and at the origin of the great vessels. The common carotid, external carotid, cervical segments of the internal carotid arteries, and the cervical segments of the vertebral arteries are patent without hemodynamically significant stenosis. The right vertebral artery is dominant. CTA Head: The anterior and posterior cerebral circulations are patent. No hemodynamically significant stenosis, aneurysm, dissection, or arteriovenous malformation is shown. origin of the right posterior cerebral artery is seen. IMPRESSION: 1. No acute intracranial hemorrhage, evidence of acute territorial infarction, or other acute intracranial disease process. 2. No occlusion, hemodynamically significant stenosis, aneurysm, dissection, or arteriovenous malformation in the major intracranial arteries. 3. No occlusion, hemodynamically significant stenosis, or dissection in the major cervical arteries. Assessment of stenosis of the internal carotid arteries is based on NASCET criteria. ACT 112: Negative or not required by law. Electronically signed by: Aleksandar Musa M.D. 11/17/2021 7:35 PM Neck CTA 11/17/21 17:28 CT angio neck with con, CT angio head w con, CT head/brain wo con CLINICAL HISTORY: Stroke Like Symptoms TECHNIQUE: Contiguous axial CT images of the head were acquired from the base of the skull to the vertex without intravenous contrast administration. CT angiog mayco of the head and neck was performed following intravenous administration of iodinated contrast. Coronal and sagittal MIPS were obtained from the axial data set and were submitted for review. Automated dose lowering techniques and/or adjustment according to patient size were utilized for this examination. All measurements were calculated based on NASCET criteria. Comparison: None available at the time of this dictation. FINDINGS: CT head: There is no acute intracranial hemorrhage or evidence of acute territor ial infarction. No shift of the midline structures, mass effect, or extra-axial abnormalities are shown. Biapical scarring is seen. CTA Neck: The left common carotid artery shares common origin with the innominate artery. Atherosclerotic plaque is present in the aortic arch and at the origin of the great vessels. The common carotid, external carotid, cervical segments of the internal carotid arteries, and the cervical segments of the vertebral arteries are patent without hemodynamically significant stenosis. The right vertebral artery is dominant. CTA Head: The anterior and posterior cerebral circulations are patent. No hemodynamically significant stenosis, aneurysm, dissection, or arteriovenous malformation is shown. origin of the right posterior cerebral artery is seen. IMPRESSION: 1. No acute intracranial hemorrhage, evidence of acute territorial infarction, or other acute intracranial disease process. 2. No occlusion, hemodynamically significant stenosis, aneurysm, dissection, or arteriovenous malformation in the major intracranial arteries. 3. No occlusion, hemodynamically significant stenosis, or dissection in the major cervical arteries. Assessment of stenosis of the internal carotid arteries is based on NASCET criteria. ACT 112: Negative or not required by law. Electronically signed by: Aleksandar Musa M.D. 11/17/2021 7:35 PM Discharge Plan Visit Data Chief Complaint: Referred by Doctor Stated Complaint: FALLING, POSSIBLE STROKE, SENT BY DR IYER Provider: Helio Rivers Discharge Problem: Stroke-like symptom, Hypertensive urgency, CKD (chronic kidney disease) stage 3, GFR 30-59 ml/min Patient Disposition: Admitted As Inpatient Discharge Instructions Interventions: ED Discharge Assessment Last Done: 11/17/21 22:50 Discharge Problem: CKD (chronic kidney disease) stage 3, GFR 30-59 ml/min Qualifiers: Chronic kidney disease stage 3 subtype: unspecified whether 3a or 3b Qualified Code(s): N18.30 - Chronic kidney disease, stage 3 unspecified
--- NOTE | 2021-11-17 17:57 | XRay Report ---
XR chest 1V portable CLINICAL HISTORY: Stroke Like Symptoms TECHNIQUE: Single frontal radiograph of the chest was obtained. Comparison: Comparison is made to chest one view 08/04/2021 FINDINGS: No lines and tubes are seen. Cardiomegaly is noted. The lungs are clear. No evidence of pleural effus ion or pneumothorax. IMPRESSION: No acute chest disease. ACT 112: Negative or not required by law. Electronically signed by: Aleksandar Musa M.D. 11/17/2021 5:56 PM
[2021-11-17 18:03] LABS: Basophils # (auto) 0.02 K/uL (0-0.2); Basophils % (auto) 0.3 %; Eosinophils # (auto) 0.36 K/uL (0-0.5); Eosinophils % (auto) 5.1 %; Hematocrit (blood only) 39.9 % (42-52); Hemoglobin 13.2 g/dL (14.0-18.0); Lymphocytes # (auto) 2.15 K/uL (1.2-3.4); Lymphocytes % (auto) 30.5 %; Mean Corpuscular Hemoglobin 29.4 pg (25-34); Mean Corpuscular Hgb Conc 33.1 g/dL (32-36); Mean Corpuscular Volume 88.9 fL (80-100); Mean Platelet Volume 9.2 fL (7.4-10.4); Monocytes # (auto) 0.68 K/uL (0.11-0.59); Monocytes % (auto) 9.6 %; Neutrophils # (auto) 3.85 K/uL (1.4-6.5); Neutrophils % (auto) 54.5 %; Platelet Count 270 K/uL (130-400); RDW Coefficient of Variation 14.1 % (11.5-14.5); RDW Standard Deviation 45.9 fL (36.4-46.3); Red Blood Count 4.49 M/uL (4.7-6.1); White Blood Count 7.06 K/uL (4.8-10.8)
[2021-11-17] MEDS: SODIUM CHLORIDE 0.9% 500 ML IV SCH ×2 (18:03→20:53)
[2021-11-17 18:18] LABS: Partial Thromboplastin Time 26.8 Seconds (21.0-31.0); Prothrombin Time 10.4 Seconds (9.0-12.0)
[2021-11-17 18:37] LABS: Albumin Globulin Ratio 1.3 (0.9-2); Albumin Level 4.4 gm/dl (3.4-5.0); BUN Creatinine Ratio 12.3 (10-20); Bilirubin,Total 0.7 mg/dl (0.2-1.0); Calcium 9.2 mg/dl (8.5-10.1); Creatinine Clr Calc Pharmacy 42.6 ml/min; Est GFR (African American) 47.3 ml/min; Est GFR (Non-African American) 40.8 ml/min; Globulin 3.4 gm/dl (2.5-4.0); Magnesium 2.1 mg/dl (1.7-2.4); Phosphorus 3.3 mg/dl (2.5-4.9); Potassium 3.8 mmol/L (3.5-5.1); Total Protein 7.8 gm/dl (6.0-8.3)
[2021-11-17 18:39] LABS: Troponin I 0.03 ng/ml (0-0.04)
[2021-11-17] MEDS ORDERED: OPTIRAY 320 125ml IV ONE (19:21)
--- NOTE | 2021-11-17 19:36 | CT Scan Report ---
CT angio neck with con, CT angio head w con, CT head/brain wo con CLINICAL HISTORY: Stroke Like Symptoms TECHNIQUE: Contiguous axial CT images of the head were acquired from the base of the skull to the brad vaughn without intravenous contrast administration. CT angiography of the head and neck was performed f ollowing intravenous administration of iodinated contrast. Coronal and sagittal MIPS were obtained fr om the axial data set and were submitted for review. Automated dose lowering techniques and/or adjus tment according to patient size were utilized for this examination. All measurements were calculated based on NASCET criteria. Comparison: None available at the time of this dictation. FINDINGS: CT head: There is no acute intracranial hemorrhage or evidence of acute territorial infarction. No sh ift of the midline structures, mass effect, or extra-axial abnormalities are shown. Biapical scarring is seen. CTA Neck: The left common carotid artery shares common origin with the innominate artery. Atheroscle rotic plaque is present in the aortic arch and at the origin of the great vessels. The common caroti d, external carotid, cervical segments of the internal carotid arteries, and the cervical segments of the vertebral arteries are patent without hemodynamically significant stenosis. The right vertebral artery is dominant. CTA Head: The anterior and posterior cerebral circulations are patent. No hemodynamically significan t stenosis, aneurysm, dissection, or arteriovenous malformation is shown. origin of the right p osterior cerebral artery is seen. IMPRESSION: 1. No acute intracranial hemorrhage, evidence of acute territorial infarction, or other acute intrac ranial disease process. 2. No occlusion, hemodynamically significant stenosis, aneurysm, dissection, or arteriovenous malfor mation in the major intracranial arteries. 3. No occlusion, hemodynamically significant stenosis, or dissection in the major cervical arteries. Assessment of stenosis of the internal carotid arteries is based on NASCET criteria. ACT 112: Negative or not required by law. Electronically signed by: Aleksandar Musa M.D. 11/17/2021 7:35 PM
[2021-11-17 19:38] LABS: Appearance Urine Clear (Clear); Bilirubin Urine Negative (Negative); Blood Urine Negative (Negative); Color Urine Yellow; Glucose Urine UA Negative (Negative); Ketones Urine Negative (Negative); Leukocyte Esterase Urine Negative (Negative); Nitrite Urine Negative (Negative); Protein Urine Negative (Negative); Specific Gravity Urine 1.016 (1.000-1.030); Urobilinogen Urine Negative (Negative); pH Urine 7.5 (4.5-7.5)
[2021-11-17] MEDS ORDERED: ACETAMINOPHEN 500 MG TAB PO STA (20:10)
[2021-11-17] MEDS ORDERED: THIAMINE HCL 200 MG in SODIUM CHLORIDE 0.9% 50 ML IV STA (21:08)
--- NOTE | 2021-11-17 21:30 | History & Physical Report ---
Date of Service November 17, 2021 Assessment & Plan (1) Stroke: Plan: Stroke in 2014, incidental infarcts found 11/02 as per HPI - Telemetry monitoring overnight for arrhythmia - ECHO with bubble study - Carotids evaluated- normal - Neurology consult - PT/OT consult for gait and strengthening - Speech eval - Lipid panel, HGB A1C in morning - BP poorly controlled - MRI - Thiamin 200mg IV daily - B12, folate, TSH in morning (2) Hypertension: Plan: Poorly controlled as outpatient - Follow while in house and medications administered for possible non compliance - Have room to increase his Hydralazine if needed (3) Hyperlipidemia: Plan: Lipds in morning - Continue Atorvastatin 40mg daily (4) Depression: Plan: Continue Buproprion- depresison following CVA in 2014 (5) Coronary artery disease: Plan: CAD with bypass history - Continue BB, Statin, Plavix, PRAVEEN (6) BPH (benign prostatic hyperplasia): Plan: Continue fiasteride (7) GERD (gastroesophageal reflux disease): Plan: Continue omeprazole (8) Severe obstructive sleep apnea: Plan: BIPAP - is complaint via reports (9) Prediabetes: Plan: HGB A1C in morning not on therapy (10) CKD (chronic kidney disease) stage 3, GFR 30-59 ml/min: Plan: CKD III - stable 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 - continue with BP control - follow glucose - follow renal indices following contrast - did get 1liter crystalloid in EMD following contrast (11) Difficulty swallowing: Plan: As above- speech pathology evaluation appreciated - easy to chew diet History of Present Illness Primary Care Provider: Дмитрий Shah MD 86 YOM with past medical history of: CABG, HFpEF, Mild MR, Aortic Sclerosis, Palpitations, HTN, GERD, ANI, BPH, DMII, CVA 2014 with tPA with right sided weakness, Vertigo, 11/02- MRI (CT system) small left subcortex and basal ganglia, right and left Thalmic, and cerebellar lacunar infarcts. [facility] He comes to the [facility] today as directed by his [facility] for evaluation for continued weakness and falls at home, with concern for new CVAs. In the EMD the patient had CT of the head, CTA of the head and neck that were negative for acute process. Patient will be admitted for continued workup with MRI, ECHO, PT/OT evaluation, speech therapy consult, and neurology consult. Will check B12 and folate in the morning, will start Thiamine 200mg IV daily starting tonight. Overall the patient has recurrent falls that he feels has gotten worse since September. He is accompanied by his daughter. They report multiple falls throughout the day and 3 within this past week. He normally falls backwards or to the side. He is able to get up with use of chair or walker. Patient also endorses feeling like he has to chew his food very long and is having trouble swallowing and getting stuck, he also has voice change with gravely voice. Via his PCP he was seen Oct where he had workup for concerns of this worsening symptoms. MRI as above- they have placed external Holter like monitor on for concerns of atrial fibrillation, PT for gait training and was pending an evaluation by neurology. The patient normally walks with a walker and his position when standing is very stiff with hips hunched over. He has decreased "awareness of his legs" and rigid steps forward that leaves him falling back, he also reports that his legs have no stamina and can't hold up. He has had CRP and ESR performed through PCP for concerns of possible polymyalgia. Allergies Allergy/AdvReac Type Severity Reaction Status Date / Time latex Allergy Mild itchiness Verified 11/17/21 17:52 and rash Sulfa (Sulfonamide Allergy Mild Rash Verified 11/17/21 17:52 Antibiotics) [id number]-[id number]-[id number] Reductase Allergy Unknown UNKNOWN, Verified 11/17/21 17:52 Inhibitor PER [Tsqbydj-Pfc-Oyv Reductase PASQURELLO Inhibitor] chlorthalidone AdvReac Intermediate Leg pain, Verified 11/17/21 17:52 low sodium, weight loss ibuprofen AdvReac Intermediate HTN Verified 11/17/21 17:52 Home Medications Medication Instructions Recorded Confirmed Type amlodipine 5 mg tablet 5 mg PO BID 08/15/18 11/17/21 History clopidogrel 75 mg tablet 75 mg PO QAM 08/15/18 11/17/21 History lisinopril 40 mg tablet 40 mg PO HS 08/15/18 11/17/21 History metoprolol tartrate 50 mg tablet 50 mg PO BID 08/15/18 11/17/21 History fluticasone furoate 200 1 inh INHALATION DAILY PRN 02/11/19 11/17/21 History mcg-vilanterol 25 mcg/dose inhalation powder (Breo Ellipta) atorvastatin 40 mg tablet 40 mg PO DAILY tab 04/03/19 11/17/21 History finasteride 5 mg tablet 5 mg PO DAILY tab 04/03/19 11/17/21 History bupropion HCl 200 mg tablet,12 hr 200 mg PO DAILY #30 ea 09/16/19 11/17/21 Rx sustained-release polyethylene glycol 3350 17 17 g PO DAILY PRN 09/08/20 11/17/21 History gram/dose oral powder (Miralax) sertraline 100 mg tablet 100 mg PO DAILY 04/29/21 11/17/21 History Wheeled Walker #1 ea 05/20/21 11/17/21 Rx omeprazole 20 mg capsule,delayed 20 mg PO QAM cap 06/08/21 11/17/21 History release multivitamin 1 tab PO DAILY 08/04/21 11/17/21 History tamsulosin 0.4 mg capsule (Flomax) 0.4 mg PO HS #30 cap 08/06/21 11/17/21 Rx hydralazine 50 mg tablet 25 mg PO TID tab 10/19/21 11/17/21 History senna-docusate sodium tablet 1 tab PO DAILY 11/17/21 11/17/21 History Past Med/Surg History Medical History Anxiety Borderline diabetes mellitus BPH (benign prostatic hyperplasia) Congestive heart failure Constipation Depression GERD (gastroesophageal reflux disease) Hyperlipidemia Hypertension Myocardial Infarction 2006 - label folder --> [facility] --> CABG - follows w/ dr. arevalo Osteoarthritis Poor historian spoke w/ pt's (gilma) Right upper lobe pneumonia (2014) Screening due Sleep apnea bipap Stroke x3 - last episode 4-5 years ago - [facility] - does not follow w/ neurologist - w/ rt sided weakness to rle, some garbled speech - cause? Surgical History History of back surgery History of bilateral cataract extraction History of cardiac cath [address] [facility] [place] --> [place]G History of carpal tunnel surgery of right wrist History of colonoscopy History of coronary artery bypass graft ? vessels - [facility] [place] - 2006 - follows w/ dr. eaton History of esophagogastroduodenoscopy (EGD) History of herniorrhaphy History of incision and drainage (08/05/21) Incision and Drainage left Perirectal Abscess Dr. Sam 08/05/2021 History of surgery I&D of perirectal abscess History of tonsillectomy History of tooth extraction Family History Sister Cancer Other No family history of adverse response to anesthesia Denies family history of Ovarian cancer Prostate cancer Breast cancer Colorectal cancer Social History Smoking Status: Never smoker Cigarettes Per Day: quit in 1959; Second Hand Exposure: No; Hx Alcohol Use: Yes Alcohol type: hard liquor Hx Substance Use: No Preferred Language: Azeri Communication Ability: Effective Hearing Ability: Hard of Hearing Taker Down Required: No Beliefs That Will Affect Care: None marital status: Current Living Situation: Spouse Current Living Situation Comment: Lives with current occupational status: retired How many Children do You have: 1 Feels Safe at Home: Yes Childhood Exposure to Second-Hand Smoke: Yes caffeine: No Dental Care, Regularly: Yes Physical Activity Frequency: Does not Exercise Seatbelt Use: always Assistive Devices: CPAP and Walker Review of Systems Review of Systems: REVIEW OF SYSTEMS: Constitutional: No fever, sweats or chills Eyes: No diplopia, no worsening or blurred vision ENT: (+) hearing aids difficulty swallowing Respiratory: No cough, sputum, dyspnea at rest or on exertion Cardiovascular: No chest pain, tightness or palpitations Abdomen: No pain, nausea, vomiting, diarrhea or constipation Musculoskeletal: No joint pain, calf pain, swelling Neurologic: (+) weakness and balance problems Psychiatric: (+) depression, No anxiety Physical Exam Physical Exam: PHYSICAL EXAM: General: awake, alert, no apparent distress Head: Normocephalic, atraumatic ENT: PERRLA, EOMI, no pharyngeal exudate, mucous membranes moist Neuro: AAO x 3, speech at times garbled, but appropriate, strength intact bilaterally 5/5 ;left with 4/5 on right, sensation intact and equal all extremities and dermatomes, no pronator drift, difficulty holding legs up off bed with drift but does not hit the bed, able to stand with assistance but stiff gait and falls to his left, heel to grubbs and finger to nose normal, tongue midline, facial sensation intact, able to puff cheeks out. Chest: equal rise and fall of the chest, no accessory muscle use, no heaves or thrills, Clear to auscultation, on room air, Cardiac: Regular rate and rhythm, telemetry reviewed, skin warm dry, cap refill <3 seconds, peripheral pulses +2 no JVD, no murmur, grade II systolic murmur, trace edema to lower extremities, patient has external holter type monitor on GI: NABS x 4 quadrants, soft, nontender to palpation, no rebound, guarding or tenderness : Spontaneously voiding, no pain, no CVA tenderness, Extremities: Normal inspection, no peripheral edema or erythema, calfs nontender to palpation Psych: Normal mood and affect Skin: no rash or erythema Results & Data Results & Data ([facility]) Vital Signs (Past 12 Hours) Vital Signs Temp Pulse Pulse Resp BP BP Pulse Ox 11/17/21 19:21 65 22 171/86 H 95 11/17/21 16:59 36.4 C L 62 20 173/72 H 95 Laboratory Results Abnormal lab results 11/17/21 11/17/21 Range/Units 17:49 17:49 RBC 4.49 L (4.7-6.1) M/uL Hgb 13.2 L (14.0-18.0) g/dL Hct 39.9 L (42-52) % [place] # (Auto) 0.68 H (0.11-0.59) K/uL Creatinine 1.54 H (0.6-1.4) mg/dl Glucose 139 H (70-99(Fasting)) mg/dl Diagnostic Findings Chest X-Ray 11/17/21 17:28 XR chest 1V portable CLINICAL HISTORY: Stroke Like Symptoms TECHNIQUE: Single frontal radiograph of the chest was obtained. Comparison: Comparison is made to chest one view 08/04/2021 FINDINGS: No lines and tubes are seen. Cardiomegaly is noted. The lungs are clear. No evidence of pleural effusion or pneumothorax. IMPRESSION: No acute chest disease. ACT 112: Negative or not required by law. Electronically signed by: Aleksandar Musa M.D. 11/17/2021 5:[address] 11/17/21 17:28 CT angio neck with con, CT angio head w con, CT head/brain wo con CLINICAL HISTORY: Stroke Like Symptoms TECHNIQUE: Contiguous axial CT images of the head were acquired from the base of the skull to the vertex without intravenous contrast administration. CT angiography of the head and neck was performed following intravenous administration of iodinated contrast. Coronal and sagittal MIPS were obtained from the axial data set and were submitted for review. Automated dose lowering techniques and/or adjustment according to patient size were utilized for this examination. All measurements were calculated based on NASCET criteria. Comparison: None available at the time of this dictation. FINDINGS: CT head: There is no acute intracranial hemorrhage or evidence of acute territorial infarction. No shift of the midline structures, mass effect, or extra-axial abnormalities are shown. Biapical scarring is seen. CTA Neck: The left common carotid artery shares common origin with the innominate artery. Atherosclerotic plaque is present in the aortic arch and at the origin of the great vessels. The common carotid, external carotid, cervical segments of the internal carotid arteries, and the cervical segments of the vertebral arteries are patent without hemodynamically significant stenosis. The right vertebral artery is dominant. CTA Head: The anterior and posterior cerebral circulations are patent. No hemodynamically significant stenosis, aneurysm, dissection, or arteriovenous m alformation is shown. origin of the right posterior cerebral artery is seen. IMPRESSION: 1. No acute intracranial hemorrhage, evidence of acute territorial infarction, or other acute intracranial disease process. 2. No occlusion, hemodynamically significant stenosis, aneurysm, dissection, or arteriovenous malformation in the major intracranial arteries. 3. No occlusion, hemodynamically significant stenosis, or dissection in the major cervical arteries. Assessment of stenosis of the internal carotid arteries is based on NASCET criteria. ACT 112: Negative or not required by law. Electronically signed by: Aleksandar Musa M.D. 11/17/2021 7:35 PM Head CTA 11/17/21 17:28 CT angio neck with con, CT angio head w con, CT head/brain wo con CLINICAL HISTORY: Stroke Like Symptoms TECHNIQUE: Contiguous axial CT images of the head were acquired from the base of the skull to the vertex without intravenous contrast administration. CT angiography of the head and neck was performed following intravenous administration of iodinated contrast. Coronal and sagittal MIPS were obtained from the axial data set and were submitted for review. Automated dose lowering techniques and/or adjustment according to patient size were utilized for this examination. All measurements were calculated based on NASCET criteria. Comparison: None available at the time of this dictation. FINDINGS: CT head: There is no acute intracranial hemorrhage or evidence of acute territorial infarction. No shift of the midline structures, mass effect, or extra-axial abnormalities are shown. Biapical scarring is seen. CTA Neck: The left common carotid artery shares common origin with the innominate artery. Atherosclerotic plaque is present in the aortic arch and at the origin of the great vessels. The common carotid, external carotid, cervical segments of the internal carotid arteries, and the cervical segments of the vertebral arteries are patent without hemodynamically significant stenosis. The right vertebral artery is dominant. CTA Head: The anterior and posterior cerebral circulations are patent. No hemodynamically significant stenosis, aneurysm, dissection, or arteriovenous malformation is shown. origin of the right posterior cerebral artery is seen. IMPRESSION: 1. No acute intracranial hemorrhage, evidence of acute territorial infarction, or other acute intracranial disease process. 2. No occlusion, hemodynamically significant stenosis, aneurysm, dissection, or arteriovenous malformation in the major intracranial arteries. 3. No occlusion, hemodynamically significant stenosis, or dissection in the major cervical arteries. Assessment of stenosis of the internal carotid arteries is based on NASCET criteria. ACT 112: Negative or not required by law. electronically signed by: Aleksandar Musa M.D. 11/17/2021 7:35 PM Neck CTA 11/17/21 17:28 CT angio neck with con, CT angio head w con, CT head/brain wo con CLINICAL HISTORY: Stroke Like Symptoms TECHNIQUE: Contiguous axial CT images of the head were acquired from the base of the skull to the vertex without intravenous contrast administration. CT angiography of the head and neck was performed following intravenous administration of iodinated contrast. Coronal and sagittal MIPS were obtained from the axial data set and were submitted for review. Automated dose lowering techniques and/or adjustment according to patient size were utilized for this examination. All measurements were calculated based on NASCET criteria. Comparison: None available at the time of this dictation. FINDINGS: CT head: There is no acute intracranial hemorrhage or evidence of acute territorial infarction. No shift of the midline structures, mass effect, or extra-axial abnormalities are shown. Biapical scarring is seen. CTA Neck: The left common carotid artery shares common origin with the innominate artery. Atherosclerotic plaque is present in the aortic arch and at the origin of the great vessels. The common carotid, external carotid, cervical segments of the internal carotid arteries, and the cervical segments of the vertebral arteries are patent without hemodynamically significant stenosis. The right vertebral artery is dominant. CTA Head: The anterior and posterior cerebral circulations are patent. No hemodynamically significant stenosis, aneurysm, dissection, or arteriovenous malformation is shown. origin of the right posterior cerebral artery is seen. IMPRESSION: 1. No acute intracranial hemorrhage, evidence of acute territorial infarction, or other acute intracranial disease process. 2. No occlusion, hemodynamically significant stenosis, aneurysm, dissection, or arteriovenous malformation in the major intracranial arteries. 3. No occlusion, hemodynamically significant stenosis, or dissection in the major cervical arteries. Assessment of stenosis of the internal carotid arteries is based on NASCET criteria. ACT 112: Negative or not required by law. Electronically signed by: Aleksandar Musa M.D. 11/17/2021 7:35 PM Medications Administered Home Medications amlodipine 5 mg tablet 5 mg PO BID 08/15/18 [History Confirmed 11/17/21] clopidogrel 75 mg tablet 75 mg PO QAM 08/15/18 [History Confirmed 11/17/21] lisinopril 40 mg tablet 40 mg PO HS 08/15/18 [History Confirmed 11/17/21] metoprolol tartrate 50 mg tablet 50 mg PO BID 08/15/18 [History Confirmed 11/17/21] fluticasone furoate 200 mcg-vilanterol 25 mcg/dose inhalation powder (Breo Ellipta) 1 inh INHALATION DAILY PRN 02/11/19 [History Confirmed 11/17/21] atorvastatin 40 mg tablet 40 mg PO DAILY tab 04/03/19 [History Confirmed 11/17/21] finasteride 5 mg tablet 5 mg PO DAILY tab 04/03/19 [History Confirmed 11/17/21] bupropion HCl 200 mg tablet,12 hr sustained-release 200 mg PO DAILY #30 ea 09/16/19 [Rx Confirmed 11/17/21] polyethylene glycol 3350 17 gram/dose oral powder (Miralax) 17 g PO DAILY PRN 09/08/20 [History Confirmed 11/17/21] sertraline 100 mg tablet 100 mg PO DAILY 04/29/21 [History Confirmed 11/17/21] Wheeled Walker #1 ea 05/20/21 [Rx Confirmed 11/17/21] omeprazole 20 mg capsule,delayed release 20 mg PO QAM cap 06/08/21 [History Confirmed 11/17/21] multivitamin 1 tab PO DAILY 08/04/21 [History Confirmed 11/17/21] tamsulosin 0.4 mg capsule (Flomax) 0.4 mg PO HS #30 cap 08/06/21 [Rx Confirmed 11/17/21] hydralazine 50 mg tablet 25 mg PO TID tab 10/19/21 [History Confirmed 11/17/21] senna-docusate sodium tablet 1 tab PO DAILY 11/17/21 [History Confirmed 11/17/21] Active Medications Sodium Chloride (Nss) 500 mls @ 125 mls/hr IV .Q4H MARKEL Stop: 12/17/21 17:29 Last Admin: 11/17/21 20:53 Dose: 125 mls/hr Documented by: Sodium Chloride (Nss) 500 mls @ 125 mls/hr IV .Q4H MARKEL Stop: 12/17/21 17:29 Last Admin: 11/17/21 20:53 Dose: 125 mls/hr Documented by: [id number] Infusion: 11/17/21 20:19 Dose: 0 mls/hr Documented by: [id number] Admin: 11/17/21 18:03 Dose: 125 mls/hr Documented by: [id number] Discontinued Medications Acetaminophen (Acetaminophen 500 Mg Tab) 1,000 mg PO NOW STA Stop: 11/17/21 20:11 Last Admin: 11/17/21 20:49 Dose: 1,000 mg Documented by: [id number] Ioversol (Optiray 320 125ml) 120 ml IV ONCE ONE Stop: 11/17/21 19:22 Last Admin: 11/17/21 19:21 Dose: 120 ml Documented by: [id number] ECG Additional Comments: Sinus rhythm with 1st degree A-V block Incomplete right bundle branch block Anterior infarct , age undetermined Abnormal ECG When compared with ECG of 04-AUG-2021 15:34, Sinus rhythm has replaced Ectopic atrial rhythm Code Status & VTE Plan Code Status CODE: FULL VTE: SCDS, Lovenox 40mg subq daily VTE Prophylaxis Plan VTE Prophylaxis will be ordered: Yes Supervising Physician Co-Signing Physician Notes Patient was seen and examined independently I discussed the case with Rafael TERRAZAS I reviewed pertinent past medical social family history and also the plan of care and agree with the plan of care. Patient with a history of CV[facility] in the [facility] due to [facility] imbalance and decreased mobility along with a gravelly voice The ER he has a nonfocal exam but does exhibit signs of some spasticity difficulty with gait and gravelly next to his voice as mentioned. Ischial imaging is unremarkable for acute [employer] event other considerations could be vitamin deficiencies. Examination is nonfocal however he cannot ambulate without severe instability due to leg weakness and falling backwards Patient will be brought in for an MRI of his brain risk factor modification and neurology evaluatio Any exceptions will be noted below PG Care Time/CCT Total # of Minutes Spent Total Time Spent with Patient: Total time spent is greater than 50% in coordination of care (as documented) at patient's floor/unit and/or counseling patient: Coding Level of Care Code 34977 Initial Inpt Care Lvl 3 Diagnoses Stroke I63.9 Hypertension I10 Hyperlipidemia E78.5 Depression F32.9 Coronary artery disease I25.10 BPH (benign prostatic hyperplasia) N40.0 GERD (gastroesophageal reflux disease) K21.9 Severe obstructive sleep apnea G47.33 Prediabetes R73.03 CKD (chronic kidney disease) stage 3, GFR 30-59 ml/min N18.3 Difficulty swallowing R13.10
[2021-11-17] MEDS ORDERED: Nursing to Pharmacy Communication SCH (23:32)
[2021-11-17] MEDS ORDERED: ONDANSETRON INJ 2 MG/ML 2 ML VIAL IV PRN (23:32)
[2021-11-17] MEDS ORDERED: FLUTICASONE/VILANTEROL 200/25MCG 14 PUFFS/INHALER INH PRN (23:32)
[2021-11-17] MEDS ORDERED: ACETAMINOPHEN 325 MG TAB PO PRN (23:32)
[2021-11-18] MEDS: METOPROLOL TARTRATE 50 MG TAB PO SCH ×3 (01:06→21:50)
[2021-11-18] MEDS: lisinopril 40 MG TAB PO SCH ×2 (01:06→21:50)
[2021-11-18] MEDS: TAMSULOSIN HCL 0.4 MG CAP PO SCH ×2 (01:06→21:51)
[2021-11-18] MEDS: ENOXAPARIN INJ 40 MG/0.4 ML SYR SQ SCH ×2 (01:07→21:48)
[2021-11-18] MEDS: hydrALAZINE HCL 25 MG TAB PO SCH ×4 (01:07→21:49)
[2021-11-18] MEDS: amLODIPine BESYLATE 5 MG TAB PO SCH ×3 (01:07→21:50)
[2021-11-18 08:13] LABS: Basophils # (auto) 0.03 K/uL (0-0.2); Basophils % (auto) 0.5 %; Eosinophils # (auto) 0.35 K/uL (0-0.5); Eosinophils % (auto) 5.4 %; Hematocrit (blood only) 40.7 % (42-52); Hemoglobin 13.4 g/dL (14.0-18.0); Immature Granulocytes # (auto) 0.01 K/uL (0.00-0.02); Immature Granulocytes % (auto) 0.2 %; Lymphocytes # (auto) 1.56 K/uL (1.2-3.4); Lymphocytes % (auto) 24.1 %; Mean Corpuscular Hemoglobin 28.9 pg (25-34); Mean Corpuscular Hgb Conc 32.9 g/dL (32-36); Mean Corpuscular Volume 87.9 fL (80-100); Monocytes # (auto) 0.72 K/uL (0.11-0.59); Monocytes % (auto) 11.1 %; Neutrophils # (auto) 3.81 K/uL (1.4-6.5); Neutrophils % (auto) 58.7 %; Platelet Count 230 K/uL (130-400); RDW Coefficient of Variation 14.1 % (11.5-14.5); RDW Standard Deviation 45.3 fL (36.4-46.3); Red Blood Count 4.63 M/uL (4.7-6.1); White Blood Count 6.48 K/uL (4.8-10.8)
[2021-11-18] MEDS: POLYETHYLENE (MIRALAX) 17 GM PACK PO PRN (08:14)
[2021-11-18] MEDS: CLOPIDOGREL BISULFATE 75 MG TAB PO SCH (08:16)
[2021-11-18] MEDS: PANTOprazole 40 MG TAB PO SCH (08:16)
[2021-11-18] MEDS: buPROPion SR 100 MG TABCR PO SCH (08:16)
[2021-11-18] MEDS: DOCUSATE SODIUM/SENNA 50/8.6MG TAB PO SCH (08:16)
[2021-11-18] MEDS: FINASTERIDE 5 MG TAB PO SCH (08:16)
[2021-11-18] MEDS: ATORVASTATIN 40 MG TAB PO SCH (08:17)
[2021-11-18] MEDS: THIAMINE HCL 200 MG in SODIUM CHLORIDE 0.9% 50 ML IV SCH (08:28)
--- NOTE | 2021-11-18 08:39 | Electrocardiogram Report ---
Test Reason : Blood Pressure : / mmHG Vent. Rate : 062 BPM Atrial Rate : 062 BPM P-R Int : 240 ms QRS Dur : 100 ms QT Int : 442 ms P-R-T Axes : 044 064 070 degrees QTc Int : 448 ms Poor data quality, interpretation may be adversely affected Sinus rhythm with 1st degree A-V block Incomplete right bundle branch block Anterior infarct , age undetermined Abnormal ECG When compared with ECG of 04-AUG-2021 15:34, Sinus rhythm has replaced Ectopic atrial rhythm Criteria for Anterior infarct is now Present Confirmed by Nicholas Hill ([id number]) on 11/18/2021 8:39:07 AM Referred By: Benji Pitts Confirmed By:Nicholas Hill
[2021-11-18 08:48] LABS: BUN Creatinine Ratio 12.3 (10-20); Calcium 8.8 mg/dl (8.5-10.1); Chol HDL Ratio 3.4 (0-5); Creatinine Clr Calc Pharmacy 53.4 ml/min; Est GFR (African American) 62.7 ml/min; Est GFR (Non-African American) 54.1 ml/min; Potassium 3.5 mmol/L (3.5-5.1)
--- NOTE | 2021-11-18 09:03 | Neurology Consultation ---
Date of Consultation November 18, 2021 Assessment & Plan (1) Stroke-like symptom: (2) Gait apraxia: (3) Dysarthria: (4) Idiopathic polyneuropathy: 86-year-old male with chronic, probably multifactorial gait dysfunction due to cerebrovascular disease, chronic left basal ganglia stroke, and id iopathic polyneuropathy. Patient presents with subacute progressive deterioration in gait, recurrent falls, chronic right-sided weakness likely due to old left subcortical ischemic infarct, and perhaps relatively new onset dysarthria. Presentation potentially consistent with a subacute infarct localizing to the brainstem although other locations not completely excluded. Broadly speaking, patient may have subcortical/lower half parkinsonism due to progressive cerebrovascular disease. Likely has an element of sensory ataxia due to his idiopathic polyneuropathy as well. Imaging not suggestive of normal pressure hydrocephalus. Does not look like classic Parkinson's disease given lack of typical pill-rolling resting tremor, rigidity, or bradykinesia. Patient does endorse a moderate degree of alcohol consumption although probably does not have an alcohol related cerebellar degeneration. Does not look like a Wernicke encephalopathy. Patient does not have nystagmus although an element of cerebellar dysfunction not completely excluded. He does appear to have bilateral eyelid opening apraxia although age-related levator palpebrae dehiscence not excluded. Patient will need an MRI of the brain to further exclude acute or subacute infarct and further evaluate the brain parenchyma for evidence of significant cerebrovascular disease as well as for possible cerebellar atrophy. Continue medical management of hypertension, systolic blood pressure goal 140 to 160 mmHg acutely. Continue with atorvastatin and clopidogrel. Follow-up with results of echocardiogram. If MRI shows evidence of an acute or subacute infarct would consider adding daily low-dose aspirin to medication regimen, with plan for dual antiplatelet therapy for 3 weeks, followed by return to clopidogrel monotherapy. Would consider 30-day outpatient mobile cardiac outpatient telemetry. I do not think additional evaluation for patient's idiopathic polyneuropathy is immediately necessary. This issue can be reexplored as an outpatient. History of Present Illness Reason for Consultation: h/o stroke, recurrent falls, possible subacute/acute CVA Requesting Physician: NINI Ramos Attending Physician: Adolfo Estrada History of Present Illness The patient is an 86-year-old male who presented to the emergency department yesterday for further evaluation and management of recurrent falls, was referred by his physician at the [facility]. He has a history of stroke occurring several years ago with chronic residual mild right hemiparesis. Past medical history notable for hypertension, hyperlipidemia, coronary artery disease, borderline diabetes mellitus, remote smoker, mild to moderate alcohol use. He had a fall that occurred the night before his presentation to the emergency department, had fallen backwards while attempting to reach over and grab the television remote control. He was unable to get up on his own. He has chronic ambulatory dysfunction and tends to rely on a walker. He does not have significant tremor. He has been experiencing orthostatic dizziness. He also complains of dysarthria and dysphagia which has been present for several months, no diplopia. CT of the head including CT angiography of the head and neck have been performed. No significant vascular lesion identified. There is a chronic lacunar infarct within the left basal ganglia region per my review of the images. There is a mild to moderate degree of generalized atrophy. There is bifrontal atrophy. There is no hydrocephalus. Patient has been modestly hypertensive, blood pressure was 173/72 at the time of presentation although systolic blood pressure has ranged from 140 to 184. Allergies Allergy/AdvReac Type Severity Reaction Status Date / Time latex Allergy Mild itchiness Verified 11/17/21 17:52 and rash Sulfa (Sulfonamide Allergy Mild Rash Verified 11/17/21 17:52 Antibiotics) Gosarvj-THB-KbZ Reductase Allergy Unknown UNKNOWN, Verified 11/17/21 17:52 Inhibitor PER [Icvbfjr-Pgh-Xgh Reductase PASQURELLO Inhibitor] chlorthalidone AdvReac Intermediate Leg pain, Verified 11/17/21 17:52 low sodium, weight loss ibuprofen AdvReac Intermediate HTN Verified 11/17/21 17:52 Home Medications Medication Instructions Recorded Confirmed Type amlodipine 5 mg tablet 5 mg PO BID 08/15/18 11/17/21 History clopidogrel 75 mg tablet 75 mg PO QAM 08/15/18 11/17/21 History lisinopril 40 mg tablet 40 mg PO HS 08/15/18 11/17/21 History metoprolol tartrate 50 mg tablet 50 mg PO BID 08/15/18 11/17/21 History fluticasone furoate 200 1 inh INHALATION DAILY PRN 02/11/19 11/17/21 History mcg-vilanterol 25 mcg/dose inhalation powder (Breo Ellipta) atorvastatin 40 mg tablet 40 mg PO DAILY tab 04/03/19 11/17/21 History finasteride 5 mg tablet 5 mg PO DAILY tab 04/03/19 11/17/21 History bupropion HCl 200 mg tablet,12 hr 200 mg PO DAILY #30 ea 09/16/19 11/17/21 Rx sustained-release polyethylene glycol 3350 17 17 g PO DAILY PRN 09/08/20 11/17/21 History gram/dose oral powder (Miralax) sertraline 100 mg tablet 100 mg PO DAILY 04/29/21 11/17/21 History Wheeled Walker #1 ea 05/20/21 11/17/21 Rx omeprazole 20 mg capsule,delayed 20 mg PO QAM cap 06/08/21 11/17/21 History release multivitamin 1 tab PO DAILY 08/04/21 11/17/21 History tamsulosin 0.4 mg capsule (Flomax) 0.4 mg PO HS #30 cap 08/06/21 11/17/21 Rx hydralazine 50 mg tablet 25 mg PO TID tab 10/19/21 11/17/21 History senna-docusate sodium tablet 1 tab PO DAILY 11/17/21 11/17/21 History Patient History Medical History Anxiety Borderline diabetes mellitus BPH (benign prostatic hyperplasia) Congestive heart failure Constipation Depression GERD (gastroesophageal reflux disease) Hyperlipidemia Hypertension 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 arevalo Osteoarthritis Poor historian spoke w/ pt's (gilma) Right upper lobe pneumonia (2014) Screening due Sleep apnea bipap Stroke x3 - last episode 4-5 years ago - [facility], [place] - does not follow w/ neurologist - w/ rt sided weakness to rle, some garbled speech - cause? Surgical History History of back surgery History of bilateral cataract extraction [place] [facility] [place] History of carpal tunnel surgery of right wrist History of colonoscopy History of coronary artery bypass [place] [facility] [place] follows w/ dr. arevalo History of esophagogastroduodenoscopy (EGD) History of herniorrhaphy History of incision and drainage (08/05/21) Incision and Drainage left Perirectal Abscess Dr. 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 Beliefs That Will Affect Care: None marital status: Current Living Situation: Spouse Current Living Situation Comment: At home with and daughter current occupational status: retired How many Children do You have: 1 Other Information That Helps Us Care for You: No Feels Safe at Home: Yes Safety Concerns: Feels Safe At This Time Childhood Exposure to Second-Hand Smoke: Yes caffeine: No Dental Care, Regularly: Yes Physical Activity Frequency: Does not Exercise Seatbelt Use: always Assistive Devices: Hearing Aid - Bilateral and Walker Review of Systems Constitutional: no fever and no chills Eyes: no blind spots and no diplopia Ear, Nose, Mouth, Throat: no ear pain and no hearing loss Respiratory: no cough and no dyspnea Cardiovascular: no chest pain and no palpitations Gastrointestinal: no constipation and no diarrhea/loose stools Genitourinary: no urinary incontinence or no urinary urgency Musculoskeletal: no muscle weakness and no muscle atrophy Integumentary: no rash and no lesions Neurologic: as per Subjective / HPI, + gait abnormality, + unsteadiness, + falls and + dizziness; no tremor(s), no restless legs, no headache(s) and no memory loss Psychiatric: no behavioral changes, no depression, no abnormal sleep pattern and no anxiety Hematologic / Lymphatic: no easy bruising and no lymphadenopathy Exam (Neuro) Constitutional: well developed and well nourished; no acute distress Eyes: normal visual bagley by confrontation, PERRL, normal accommodation and EOM intact bilaterally; no fundoscopic abnormality, no nystagmus and no papilledema Cardiovascular: Vessels: normal carotid upstroke; no carotid bruit Neurologic: Oriented to:: Person, Place and Time Memory: Short Term Intact and Remote Intact Attention: Span Intact and Concentration Intact Language: Naming Objects and Repeating Phrases Speech Fluency: Dysarthria and Other (voice is hoarse) Speech Aphasia: negative Aphasia Fund of Knowledge: Current Events, Past History and Vocabulary Cranial Nerves: Normal II (Visual bagley full to confrontation, visual acuity normal), III, IV, (Pupils equal round reactive to light and accommodation, eye movements normal), V (Facial sensation intact), VII (There is no facial droop or weakness), VIII (Hearing intact), IX, X (Palate elevates to midline), XI (Shoulder shrug intact) and XII (Tongue protrudes to midline) Motor Strength: Normal Lower Extremities and Normal Upper Extremities; negative Pronator Drift Motor Tone: Normal Lower Extremities and Normal Upper Extremities Muscle Bulk/Involuntary Movements: No Involuntary Movements; negative Muscle Atrophy or Pill Rolling Zay mor Sensation: Light Touch Intact, Pain/Temperature Intact and Proprioception Intact; negative Vibration Intact Coordination: Normal, Limited Balance, Finger-Nose Abnormal and Heel-Fernando Abnormal; negative Dysdiadochokinesia Deep Tendon Reflexes: Rt Triceps: 1+, Lt Triceps: 1+, Rt Biceps: 1+, Lt Biceps: 1+, Rt Brachioradialis: 1+, Lt Brachioradialis: 1+, Rt Patellar: 1+, Lt Patellar: 1+, Rt Ankle: 0 and Lt Ankle: 0 Special Tests: negative Babinski Present Gait: Apractic and Ataxic Details: Appears to have bilateral eyelid opening apraxia Results & Data ([facility]) Vital Signs (Past 12 Hours) Vital Signs Temp Pulse Pulse Pulse Resp BP BP 11/18/21 07:00 36.3 C L 82 20 170/92 H 11/18/21 04:27 36.6 C 57 L 18 11/18/21 03:05 60 14 11/18/21 00:30 56 L 17 11/17/21 23:46 60 11/17/21 23:32 36.5 C 62 20 11/17/21 23:15 36.5 C 18 11/17/21 22:31 59 L 21 179/82 H 11/17/21 22:00 55 L 19 140/66 11/17/21 21:30 59 L 18 159/72 H 11/17/21 21:15 BP Pulse Ox Pulse Ox 11/18/21 07:00 95 11/18/21 04:27 156/85 H 94 11/18/21 03:05 94 11/18/21 00:30 96 11/17/21 23:46 11/17/21 23:32 184/84 H 97 11/17/21 23:15 184/84 H 97 11/17/21 22:31 97 11/17/21 22:00 95 11/17/21 21:30 96 11/17/21 21:15 97 Laboratory Results WBC 6.48, hemoglobin 13.4, hematocrit 40.7, MCV 87.9, platelet count 230, sodium 139, potassium 3.5, BUN 15, creatinine 1.22, glucose 104, hemoglobin A1c 5.5 calcium 8.8, magnesium 2.0, AST 17, ALT 31, troponin 0 0.03, triglycerides 260, cholesterol 151, LDL 55, VLDL 52, HDL 44, TSH 2.088, vitamin B12 337, folate greater than 22.30. Hemoglobin A1c 5.5. Patient did have a protein electrophoresis and immunofixation completed in April 2021 with faint indistinct bands likely consistent with reactive inflammatory process at that time. Diagnostic Findings CT of the head including CT angiography of the head and neck are as described in history of present illness. I reviewed the images as well as the radiologist interpretation of these tests. Electrocardiogram completed yesterday revealed a sinus rhythm with first-degree AV block, incomplete right bundle branch block, age undetermined anterior infarct. Coding Level of Care Code 51544 Initial Inpt Care Lvl 3 Diagnoses Stroke-like symptom R29.90 Gait apraxia R48.2 Dysarthria R47.1 Idiopathic polyneuropathy G60.9
[2021-11-18 09:09] LABS: Estimated Average Glucose 111 mg/dl; Hemoglobin A1C 5.5 % (4.5-5.6)
[2021-11-18 09:14] LABS: Folate (Folic Acid) > 22.30 ng/ml (>5.38)
[2021-11-18 09:15] LABS: Vitamin B12 337 pg/ml (180-914)
--- NOTE | 2021-11-18 12:16 | Magnetic Resonance Report ---
MR brain wo con CLINICAL HISTORY: Evaluate for CVA TECHNIQUE: Multiplanar and multisequence MR images of the brain were obtained without intravenous con trast. Comparison: Comparison is made to MRI brain 04/29/2013 FINDINGS: No abnormal restricted diffusion is identified. Foci of T2 and FLAIR hyperintensity are noted in the paraventricular areas consistent with chronic small vessel ischemic disease. Ex vacuo ventriculomegal y and sulcal enlargement is noted compatible with diffuse encephalomalacia. There are no masses, mass effect, or midline shift. No abnormal enhancement is seen. There is no evidence of acute intraparenc hymal hemorrhage. No extra axial fluid collections are seen. The corpus callosum, pituitary gland, an d cerebellar tonsils appear grossly unremarkable. Flow voids of the major intracranial arterial vessels are identified. The imaged portions of the para nasal sinuses, mastoid air cells, and orbits are unremarkable. IMPRESSION: No acute abnormalities. No evidence of cerebrovascular accident. ACT 112: Negative or not required by law. Electronically signed by: Aleksandar Musa M.D. 11/18/2021 12:14 PM
--- NOTE | 2021-11-18 14:11 | XCELERA ---
[id number]
--- NOTE | 2021-11-18 19:56 | Hospitalist Progress Note ---
Date of Service November 18, 2021 Assessment & Plan (1) Stroke: Plan: Stroke in 2014, incidental infarcts found 11/02 as per HPI - Telemetry monitoring overnight for arrhythmia - ECHO with bubble study - Carotids evaluated- normal - Neurology consult - PT/OT consult for gait and strengthening - Speech eval - Lipid panel, HGB A1C in morning - BP poorly controlled - MRI : negative for stroke. 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 -PT/OT recommend rehab vs 03/04 care. will discuss with casemanangement. will monitor overnight. - Thiamin 200mg IV daily - B12, folate, TSH in morning (2) Hypertension: Plan: Poorly controlled as outpatient - Follow while in house and medications administered for possible non compliance - Have room to increase his Hydralazine if needed (3) Hyperlipidemia: Plan: Lipds in morning - Continue Atorvastatin 40mg daily (4) Depression: Plan: Continue Buproprion- depresison following CVA in 2014 (5) Coronary artery disease: Plan: CAD with bypass history - Continue BB, Statin, Plavix, PRAVEEN (6) BPH (benign prostatic hyperplasia): Plan: Continue fiasteride (7) GERD (gastroesophageal reflux disease): Plan: Continue omeprazole (8) Severe obstructive sleep apnea: Plan: BIPAP - is complaint via reports (9) Prediabetes: Plan: HGB A1C in morning not on therapy (10) CKD (chronic kidney disease) stage 3, GFR 30-59 ml/min: Plan: CKD III - 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 Review of Systems Review of Systems: All systems reviewed & are unremarkable except as noted in HPI & below Physical Exam Physical Exam: PHYSICAL EXAM: General: awake, alert, no apparent distress Head: Normocephalic, atraumatic ENT: PERRLA, EOMI, no pharyngeal exudate, mucous membranes moist Neuro: AAO x 3, speech at times garbled, but appropriate, strength intact bilaterally 5/5 ;left with 4/5 on right, sensation intact and equal all extremities and dermatomes, no pronator drift, difficulty holding legs up off bed with drift but does not hit the bed, able to stand with assistance but stiff gait and falls to his left, heel to grubbs and finger to nose normal, tongue midline, facial sensation intact, able to puff cheeks out. Chest: equal rise and fall of the chest, no accessory muscle use, no heaves or thrills, Clear to auscultation, on room air, Cardiac: Regular rate and rhythm, telemetry reviewed, skin warm dry, cap refill <3 seconds, peripheral pulses +2 no JVD, no murmur, grade II systolic murmur, trace edema to lower extremities, patient has external holter type monitor on GI: NABS x 4 quadrants, soft, nontender to palpation, no rebound, guarding or tenderness : Spontaneously voiding, no pain, no CVA tenderness, Extremities: Normal inspection, no peripheral edema or erythema, calfs nontender to palpation Psych: Normal mood and affect Skin: no rash or erythema Results & Data Results & Data ([facility]) Vital Signs (Past 12 Hours) Vital Signs Temp Pulse Pulse Resp BP BP Pulse Ox 11/18/21 19:53 36.8 C 62 18 154/77 H 96 11/18/21 15:40 36.6 C 58 L 16 131/68 96 11/18/21 14:15 57 L PG Care Time/CCT Total # of Minutes Spent Total Time Spent with Patient: Total time spent is greater than 50% in coordination of care (as documented) at patient's floor/unit and/or counseling patient: Coding Level of Care Code 67132 Subseq Hosp Care Lvl 2 Diagnoses Stroke I63.9 Hypertension I10 Hyperlipidemia E78.5 Depression F32.9 Coronary artery disease I25.10 BPH (benign prostatic hyperplasia) N40.0 GERD (gastroesophageal reflux disease) K21.9 Severe obstructive sleep apnea G47.33 Prediabetes R73.03 CKD (chronic kidney disease) stage 3, GFR 30-59 ml/min N18.30 Chronic kidney disease stage 3 subtype: unspecified whether 3a or 3b Difficulty swallowing R13.10 Time Spent (min) 25 (1) CKD (chronic kidney disease) stage 3, GFR 30-59 ml/min Chronic kidney disease stage 3 subtype: unspecified whether 3a or 3b Qualified Code(s): N18.30 - Chronic kidney disease, stage 3 unspecified
[2021-11-19 07:58] LABS: Basophils # (auto) 0.04 K/uL (0-0.2); Basophils % (auto) 0.5 %; Eosinophils # (auto) 0.35 K/uL (0-0.5); Eosinophils % (auto) 4.6 %; Hematocrit (blood only) 42.8 % (42-52); Hemoglobin 14.2 g/dL (14.0-18.0); Immature Granulocytes # (auto) 0.01 K/uL (0.00-0.02); Immature Granulocytes % (auto) 0.1 %; Lymphocytes # (auto) 2.37 K/uL (1.2-3.4); Lymphocytes % (auto) 30.9 %; Mean Corpuscular Hemoglobin 29.3 pg (25-34); Mean Corpuscular Hgb Conc 33.2 g/dL (32-36); Mean Corpuscular Volume 88.2 fL (80-100); Mean Platelet Volume 9.2 fL (7.4-10.4); Monocytes # (auto) 0.89 K/uL (0.11-0.59); Monocytes % (auto) 11.6 %; Neutrophils # (auto) 4.02 K/uL (1.4-6.5); Neutrophils % (auto) 52.3 %; Platelet Count 261 K/uL (130-400); RDW Standard Deviation 45.1 fL (36.4-46.3); Red Blood Count 4.85 M/uL (4.7-6.1); White Blood Count 7.68 K/uL (4.8-10.8)
[2021-11-19] MEDS: POLYETHYLENE (MIRALAX) 17 GM PACK PO PRN (07:58)
[2021-11-19] MEDS: ATORVASTATIN 40 MG TAB PO SCH (08:01)
[2021-11-19] MEDS: METOPROLOL TARTRATE 50 MG TAB PO SCH (08:01)
[2021-11-19] MEDS: THIAMINE HCL 200 MG in SODIUM CHLORIDE 0.9% 50 ML IV SCH (08:01)
[2021-11-19] MEDS: buPROPion SR 100 MG TABCR PO SCH (08:02)
[2021-11-19] MEDS: hydrALAZINE HCL 25 MG TAB PO SCH ×2 (08:02→14:27)
[2021-11-19] MEDS: DOCUSATE SODIUM/SENNA 50/8.6MG TAB PO SCH (08:02)
[2021-11-19] MEDS: PANTOprazole 40 MG TAB PO SCH (08:02)
[2021-11-19] MEDS: FINASTERIDE 5 MG TAB PO SCH (08:02)
[2021-11-19] MEDS: amLODIPine BESYLATE 5 MG TAB PO SCH (08:02)
[2021-11-19] MEDS: CLOPIDOGREL BISULFATE 75 MG TAB PO SCH (08:02)
[2021-11-19 09:44] LABS: BUN Creatinine Ratio 14.3 (10-20); Calcium 9.2 mg/dl (8.5-10.1); Est GFR (African American) 53.1 ml/min; Est GFR (Non-African American) 45.8 ml/min; Magnesium 2.1 mg/dl (1.7-2.4); Potassium 3.7 mmol/L (3.5-5.1)
--- NOTE | 2021-11-21 21:25 | Discharge Summary ---
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 Patient normally receives majority of his care through [facility]. He comes to [facility] for evaluation for continued weakness and falls at home, with concern for new CVAs. In the EMD the patient had CT of the head, CTA of the head and neck that were negative for acute process. Patient will be admitted for continued workup with MRI, ECHO, PT/OT evaluation, speech therapy consult, and neurology consult. Will check B12 and folate in the morning, will start Thiamine 200mg IV daily starting tonight. Overall the patient has recurrent falls that he feels has gotten worse since September. He is accompanied by his daughter. They report multiple falls throughout the day and 3 within this past week. He normally falls backwards or to the side. He is able to get up with use of chair or walker. Patient also endorses feeling like he has to chew his food very long and is having trouble swallowing and getting stuck, he also has voice change with gravely voice. Via his PCP he was seen [facility] where he had workup for concerns of this worsening symptoms. MRI as above- they have placed external Holter like monitor on for concerns of atrial fibrillation, PT for gait training and was pending an evaluation by neurology. The patient normally walks with a walker and his position when standing is very stiff with hips hunched over. He has decreased "awareness of his legs" and rigid steps forward that leaves him falling back, he also reports that his legs have no stamina and can't hold up. He has had CRP and ESR performed through PCP for concerns of possible polymyalgia. Principal Diagnosis weakness Discharge Exam PHYSICAL EXAM: General: awake, alert, no apparent distress Head: Normocephalic, atraumatic ENT: PERRLA, EOMI, no pharyngeal exudate, mucous membranes moist Neuro: AAO x 3, speech at times garbled, but appropriate, strength intact bilaterally 5/5 ;left with 4/5 on right, sensation intact and equal all extremities and dermatomes, no pronator drift, difficulty holding legs up off bed with drift but does not hit the bed, able to stand with assistance but stiff gait and falls to his left, heel to grubbs and finger to nose normal, tongue midline, facial sensation intact, able to puff cheeks out. Chest: equal rise and fall of the chest, no accessory muscle use, no heaves or thrills, Clear to auscultation, on room air, Cardiac: Regular rate and rhythm, telemetry reviewed, skin warm dry, cap refill <3 seconds, peripheral pulses +2 no JVD, no murmur, grade II systolic murmur, trace edema to lower extremities, patient has external holter type monitor on GI: NABS x 4 quadrants, soft, nontender to palpation, no rebound, guarding or tenderness : Spontaneously voiding, no pain, no CVA tenderness, Extremities: Normal inspection, no peripheral edema or erythema, calfs nontender to palpation Psych: Normal mood and affect Skin: no rash or erythema Discharge Data Allergies Allergy/AdvReac Type Severity Reaction Status Date / Time latex Allergy Mild itchiness Verified 11/17/21 17:52 and rash Sulfa (Sulfonamide Allergy Mild Rash Verified 11/17/21 17:52 Antibiotics) Sxepbya-LTN-TfZ Reductase Allergy Unknown UNKNOWN, Verified 11/17/21 17:52 Inhibitor PER [Kxvexsp-Wnx-Fge Reductase PASQURELLO Inhibitor] chlorthalidone AdvReac Intermediate Leg pain, Verified 11/17/21 17:52 low sodium, weight loss ibuprofen AdvReac Intermediate HTN Verified 11/17/21 17:52 Consultations 11/17/21 19:51 ED Decision to Admit Stat 11/17/21 23:32 Consult Neurology Routine Ordered Studies 11/17/21 17:28 CT angio head w con Stat CT angio neck with con Stat CT head/brain wo con Stat 11/18/21 07:00 MR brain wo con Routine Hospital Course (1) Stroke: Patient admitted for concern of a stroke. Thankfully, MRI is negative. will transfer patient to rehab. If no improvement will defer to PCP for additional outpatient workup, including lyme test. Stroke in 2014, incidental infarcts found 11/02 as per HPI - Telemetry monitoring overnight for arrhythmia - ECHO with bubble study - Carotids evaluated- normal - Neurology consult - PT/OT consult for gait and strengthening - Speech eval - Lipid panel, HGB A1C in morning - BP poorly controlled - MRI : negative for stroke. -needed to remove media monitor. -PT/OT recommend rehab vs 24/ care. Family agreeable to rehab placement. will be discharged today. (2) Hypertension: Poorly controlled as outpatient - Follow while in house and medications administered for possible non compliance - Have room to increase his Hydralazine if needed (3) Hyperlipidemia: Lipds in morning - Continue Atorvastatin 40mg daily (4) Depression: Continue Buproprion- depresison following CVA in 2014 (5) Coronary artery disease: CAD with bypass history - Continue BB, Statin, Plavix, PRAVEEN (6) BPH (benign prostatic hyperplasia): Continue fiasteride (7) GERD (gastroesophageal reflux disease): Continue omeprazole (8) Severe obstructive sleep apnea: BIPAP - is complaint via reports (9) Prediabetes: HGB A1C in morning not on therapy (10) CKD (chronic kidney disease) stage 3, GFR 30-59 ml/min: CKD III - 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 - continue with BP control - follow glucose - follow renal indices following contrast - did get 1liter crystalloid in EMD following contrast (11) Difficulty swallowing: As above- speech pathology evaluation appreciated - easy to chew diet Total Time Total Time Spent Total Time Spent (In Minutes): 32 Discharge Plan Discharge Items Patient Disposition: Transfer Inpatient Rehab Fac Reason For Visit: WEAKNESS, FALLING, RULE OUT CVA Discharge Diagnosis: weakness Activity: Resume your previous activity Non-emergency contact: Primary Care Provider Call non-emergency contact if: you have any medication questions Follow-up/Referrals: Дмитрий Shah MD [Primary Care Provider] - Diet: Low Sodium (2gm) Diet Texture: Easy to Chew Addtl Attending Provider Instructions: You have been hospitalized for an acute medical problem. During your stay at [facility], we have made an effort to correct the problem that brought you to the hospital while keeping you as comfortable as possible. Medications were used to bring your condition under control and your discharge instructions will include directions for any medications you should take after leaving the hospital. Please make sure you see your Primary Care Provider as part of your follow up plan. Pending Studies at Discharge: No Stand-Alone Forms: My [facility] Skilled Items Patient informed of condition?: Yes DNR: No Discharge Level of Care: Skilled Communicable Disease: Yes Discharge Prognosis: Stable Lines: None Urinary Catheter: No Medications and DC Order Prescriptions: Continued bupropion HCl 200 mg tablet sustained-release 12 hr 200 mg PO DAILY Qty: 30 RF: 5 polyethylene glycol 3350 [Miralax] 17 gram/dose powder 17 g PO DAILY PRN (Reason: Constipation) RF: 0 (DME) Wheeled Walker Misc See Rx Instructions .Route Qty: 1 RF: 0 omeprazole 20 mg capsule,delayed release(DR/EC) 20 mg PO QAM RF: 0 hydralazine 50 mg tablet 25 mg PO TID RF: 0 finasteride 5 mg tablet 5 mg PO DAILY RF: 0 Breo Ellipta 200-25 mcg/dose Blister With Device 1 inh INHALATION DAILY PRN (Reason: Shortness Of Breath) RF: 0 clopidogrel 75 mg Tablet 75 mg PO QAM RF: 0 amlodipine 5 mg Tablet 5 mg PO BID RF: 0 metoprolol tartrate 50 mg Tablet 50 mg PO BID RF: 0 lisinopril 40 mg Tablet 40 mg PO HS RF: 0 atorvastatin 40 mg tablet 40 mg PO DAILY RF: 0 sertraline 100 mg Tablet 100 mg PO DAILY RF: 0 multivitamin Tablet 1 tab PO DAILY RF: 0 tamsulosin [Flomax] 0.4 mg capsule 0.4 mg PO HS Qty: 30 RF: 0 senna-docusate sodium Tablet 1 tab PO DAILY RF: 0 Discharge Orders: Discharge Order (Routine); Ordered 11/19/21 Ordered By: Adolfo Estrada Admission Data Admit Date/Time: 11/17/21 20:57 Attending Provider: Adolfo Estrada Admit Provider: Misael Hoffmann Primary Care Provider: Дмитрий Shah Other Providers: Misael Hoffmann ; Joel Colind[facility] ; [facility] ; [facility] ; [facility] Other Interventions: Discharge Summary Assessment (RN) Last Done: 11/19/21 15:13 Coding Level of Care Code D/C DAY MANAGEMENT >30 MINS Diagnoses Stroke I63.9 Hypertension I10 Hyperlipidemia E78.5 Depression F32.9 Coronary artery disease I25.10 BPH (benign prostatic hyperplasia) N40.0 GERD (gastroesophageal reflux disease) K21.9 Severe obstructive sleep apnea G47.33 Prediabetes R73.03 CKD (chronic kidney disease) stage 3, GFR 30-59 ml/min N18.30 Chronic kidney disease stage 3 subtype: unspecified whether 3a or 3b Difficulty swallowing R13.10
--- NOTE | 2021-11-24 06:02 | Coding Query ---
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 Please assist us with the question(s) below: Coding Question(s): Patient admitted with weakness/ repeat falls. Neuro Consulted. Please document, if known or suspected, the etiology of the weakness/falls. Thanks for your help. Selvin Barragan [facility] Physician's Response(s): Deconditioning. exact diagnosis janeth depend on how well patient responds to PT outside facility, Principal Diagnosis: "that condition established after study, to be chiefly responsible for occasioning the admission of the patient to the hospital for care." Co-Existing Principal Diagnosis: "when two or more diagnoses equally meet the criteria for principal diagnosis as determined by the circumstances of admission, diagnostic work up, and/or therapy provided, and the Alphabetic Index, Tabular List, or another coding guideline does not provide sequencing direction, any one of the diagnoses may be sequenced first." "When the physician has documented what appears to be a current diagnosis in the body of the record, but has not included the diagnosis in the final diagnostic statement, the physician should be asked whether the diagnosis should be added." (Source Coding [facility] 2 QTR90. p3-4) [place]
== END 2021-11-19 16:40 | DRG 948 ==
LOC: ED 16:58 → 2N 20:57 → SUATTDRO 20:57 → 2N 22:50

== ENCOUNTER 2023-05-06 08:23 | Observation (INO) ==
[2023-05-06 09:02] LABS: Basophils # (auto) 0.04 K/uL (0.00-0.20); Basophils % (auto) 0.6 %; Eosinophils # (auto) 0.36 K/uL (0.00-0.50); Eosinophils % (auto) 5.6 %; Hemoglobin 13.1 g/dl (14.0-18.0); Immature Granulocytes # (auto) 0.02 K/uL (0.01-0.20); Immature Granulocytes % (auto) 0.3 %; Lymphocytes # (auto) 1.65 K/uL (1.20-3.40); Lymphocytes % (auto) 25.7 %; Mean Corpuscular Hemoglobin 29.7 pg (25.0-34.0); Mean Corpuscular Hgb Conc 32.8 g/dL (32.0-36.0); Mean Corpuscular Volume 90.7 fL (80.0-100.0); Mean Platelet Volume 9.4 fL (9.4-12.4); Monocytes % (auto) 10.9 %; Neutrophils # (auto) 3.64 K/uL (1.40-6.50); Neutrophils % (auto) 56.9 %; Platelet Count 219 K/uL (130-400); RDW Coefficient of Variation 13.3 % (11.5-14.5); RDW Standard Deviation 44.8 fL (36.4-46.3); Red Blood Count 4.41 M/uL (4.70-6.10); White Blood Count 6.41 K/ul (4.8-10.8)
[2023-05-06 09:05] LABS: iSTAT Creatinine 1.3 mg/dl (0.6-1.3); iSTAT Hemoglobin 13.3 g/dl (14.0-18.0); iSTAT Ionized Calcium 1.17 mmol/l (1.12-1.32); iSTAT Potassium 3.8 mmol/L (3.3-5.0)
[2023-05-06] MEDS ORDERED: IOVERSOL 350 MG 125mL Prefilled Syringe IV ONE (09:05)
--- NOTE | 2023-05-06 09:05 | Emergency Department Note ---
History of Present Illness General Chief complaint: Headache Stated complaint: HEADACHE, NAUSEA Time Seen by Provider: 05/06/23 08:33 History of Present Illness Provider complaint: Headache dizziness difficulty speaking chest pain Maximum Pain Intensity: 7 87-year-old male presents emergency department for dizziness and headache. Patient reports he has been having dizziness and headache for the last week. He states yesterday started having chest pain and nausea. He states today he is having difficulty speaking splurge during his words on and off for the last week. No recent falls. Patient is not on any blood thinners. Patient does have a history of a stroke. Home Medications Medication Instructions Recorded Confirmed Type clopidogrel 75 mg tablet 75 mg PO QAM 08/15/18 05/06/23 History metoprolol tartrate 50 mg tablet 50 mg PO BID 08/15/18 05/06/23 History finasteride 5 mg tablet 5 mg PO DAILY 04/03/19 05/06/23 History bupropion HCl 200 mg tablet,12 hr 200 mg PO DAILY #30 ea 09/16/19 05/06/23 Rx sustained-release polyethylene glycol 3350 17 17 g PO DAILY PRN Constipation 09/08/20 05/06/23 History gram/dose oral powder (Miralax) sertraline 100 mg tablet 100 mg PO DAILY 04/29/21 05/06/23 History Wheeled Walker #1 ea 05/20/21 11/10/22 Rx omeprazole 20 mg capsule,delayed 20 mg PO QAM 06/08/21 05/06/23 History release multivitamin 1 tab PO DAILY 08/04/21 05/06/23 History tamsulosin 0.4 mg capsule (Flomax) 0.4 mg PO HS #30 caps 08/06/21 05/06/23 Rx atorvastatin 40 mg tablet 40 mg PO .QHS 06/08/22 05/06/23 History magnesium oxide 420 mg tablet 420 mg PO DAILY Sleep and bowels 10/31/22 05/06/23 History senna-docusate sodium tablet 1 tab PO BID 10/31/22 05/06/23 History amlodipine 5 mg tablet 5 mg PO BID 11/10/22 05/06/23 History hydralazine 25 mg tablet 25 mg PO BID 05/06/23 05/06/23 History lisinopril 20 mg tablet 20 mg PO BID 05/06/23 05/06/23 History Allergies Allergy/AdvReac Type Severity Reaction Status Date / Time latex Allergy Mild itchiness Verified 05/06/23 11:34 and rash Sulfa (Sulfonamide Allergy Mild Rash Verified 05/06/23 11:34 Antibiotics) Xbzydyv-GZS-HtD Reductase Allergy Unknown UNKNOWN, Verified 05/06/23 11:34 Inhibitor PER [Ecjkhpv-Fno-Rpg Reductase PASQURELLO Inhibitor] chlorthalidone AdvReac Intermediate Leg pain, Verified 05/06/23 11:34 low sodium, weight loss ibuprofen AdvReac Intermediate HTN Verified 05/06/23 11:34 Past Med/Surg History Medical History Anxiety Borderline diabetes mellitus BPH (benign prostatic hyperplasia) Congestive heart failure Depression DVT prophylaxis Gait abnormality GERD (gastroesophageal reflux disease) Hyperlipidemia Hypertension 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 arevalo Osteoarthritis Poor historian spoke w/ pt's (gilma) Right upper lobe pneumonia (2014) Screening due Sleep apnea bipap Stroke x3 - last episode 4-5 years ago - [facility] - does not follow w/ neurologist - w/ rt sided weakness to rle, some garbled speech - cause? Surgical History History of back surgery History of bilateral cataract extraction [facility] [place] History of carpal tunnel surgery of right wrist History of colonoscopy History of coronary artery bypass graft ? vessels [facility] [place] - 2006 - follows w/ dr. arevalo History of esophagogastroduodenoscopy (EGD) History of herniorrhaphy History of incision and drainage (08/05/21) Incision and Drainage left Perirectal Abscess Dr. Sam 08/05/2021 History of surgery I&D of perirectal abscess History of tonsillectomy History of tooth extraction Hx of CABG (2006) Family History Sister Cancer Other No family history of adverse response to anesthesia Denies family history of Ovarian cancer Prostate cancer Breast cancer Colorectal cancer Social History Smoking Status: Never smoker Cigarettes Per Day: quit in 1959; Second Hand Exposure: No; Do You Dip or Chew Tobacco: No; Hx Alcohol Use: Yes Alcohol type: hard liquor Hx Substance Use: No Preferred Language: Bulgarian Communication Ability: Effective Hearing Ability: Use of Hearing Aid Furniture Packer Required: No Beliefs That Will Affect Care: Alevism Alevism Beliefs: Christianity marital status: Current Living Situation: Family Current Living Situation Comment: At home with and daughter current occupational status: retired How many Children do You have: 1 Feels Safe at Home: Yes Safety Concerns: Feels Safe At This Time Childhood Exposure to Second-Hand Smoke: Yes Diet: low salt caffeine: No Dental Care, Regularly: Yes Physical Activity Frequency: Does not Exercise Seatbelt Use: always Assistive Devices: CPAP Physical Exam Vital Signs Vital Signs - 24 hr 05/06/23 08:26 05/06/23 08:58 05/06/23 09:14 Temperature 36.8 C Temperature Source Oral Pulse Rate 57 L 61 Pulse Rate [Apical] 57 L Pulse Rate from SpO2 Sensor Respiratory Rate 18 16 Blood Pressure 182/74 H Blood Pressure [Left Arm] 142/80 H Blood Pressure Mean 110 Blood Pressure Mean [Left Arm] 100 Blood Pressure Position Sitting Pulse Oximetry 98 95 Sepsis Recent Fever Within 48 Hours No Sepsis New/Unexplained Change in Mental Status No Sepsis Action Taken by Nursing No Action Required 05/06/23 10:00 05/06/23 08:35 05/06/23 09:12 Temperature Temperature Source Pulse Rate 60 Pulse Rate [Apical] 53 L Pulse Rate from SpO2 Sensor 57 L Respiratory Rate 16 21 Blood Pressure Blood Pressure [Left Arm] 145/71 H Blood Pressure Mean Blood Pressure Mean [Left Arm] 95 Blood Pressure Position Pulse Oximetry 93 97 Sepsis Recent Fever Within 48 Hours Sepsis New/Unexplained Change in Mental Status Sepsis Action Taken by Nursing 05/06/23 09:13 05/06/23 09:13 05/06/23 09:30 Temperature Temperature Source Pulse Rate 59 L 60 Pulse Rate [Apical] Pulse Rate from SpO2 Sensor 58 L 55 L Respiratory Rate 18 22 Blood Pressure 142/80 H Blood Pressure [Left Arm] Blood Pressure Mean 97 Blood Pressure Mean [Left Arm] Blood Pressure Position Pulse Oximetry 96 96 Sepsis Recent Fever Within 48 Hours Sepsis New/Unexplained Change in Mental Status Sepsis Action Taken by Nursing 05/06/23 10:00 05/06/23 10:13 05/06/23 10:13 Temperature Temperature Source Pulse Rate 54 L 52 L Pulse Rate [Apical] Pulse Rate from SpO2 Sensor 53 L 53 L Respiratory Rate 24 22 Blood Pressure 145/71 H Blood Pressure [Left Arm] Blood Pressure Mean 103 Blood Pressure Mean [Left Arm] Blood Pressure Position Pulse Oximetry 97 93 Sepsis Recent Fever Within 48 Hours Sepsis New/Unexplained Change in Mental Status Sepsis Action Taken by Nursing 05/06/23 10:30 05/06/23 10:30 05/06/23 11:00 Temperature Temperature Source Pulse Rate 53 L Pulse Rate [Apical] Pulse Rate from SpO2 Sensor Respiratory Rate 23 Blood Pressure 156/84 H 148/71 H Blood Pressure [Left Arm] Blood Pressure Mean 125 89 Blood Pressure Mean [Left Arm] Blood Pressure Position Pulse Oximetry Sepsis Recent Fever Within 48 Hours Sepsis New/Unexplained Change in Mental Status Sepsis Action Taken by Nursing 05/06/23 11:00 Temperature Temperature Source Pulse Rate 51 L Pulse Rate [Apical] Pulse Rate from SpO2 Sensor Respiratory Rate 18 Blood Pressure Blood Pressure [Left Arm] Blood Pressure Mean Blood Pressure Mean [Left Arm] Blood Pressure Position Pulse Oximetry Sepsis Recent Fever Within 48 Hours Sepsis New/Unexplained Change in Mental Status Sepsis Action Taken by Nursing Physical Exam HENT: Exam performed. - Head: Normocephalic and atraumatic. - Mouth/Throat: The oropharynx is clear and moist. No trismus in the jaw. No dental abscesses or uvula swelling. No oropharyngeal exudate or tonsillar abscesses. EYES: Conjunctivae and EOM are normal. Pupils are equal, round, and reactive to light. Right eye exhibits no discharge. Left eye exhibits no discharge. No scleral icterus. NECK: Normal range of motion. Neck supple. No JVD present. No rigidity. No tracheal deviation and normal range of motion present. CV: Normal rate, regular rhythm, normal heart sounds and intact distal pulses. There is no peripheral edema. Palpable radial pulses bue. PULM/CHEST: Effort normal and breath sounds normal. No respiratory distress. No stridor. He has no wheezes. He has no rales. ABD: The abdomen is soft.There is no tenderness. There is no rebound, no guarding NEURO: Dysarthria and expressive aphasia. Right lower extremity weakness which is baseline from his previous stroke the patient reports. 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 Course Course 08: The patient was evaluated in room C8. A complete history and physical exam was performed Administered Medications Discontinued Medications Gadobutrol (Gadobutrol 10ml Vial) 10 ml IV ONCE ONE Stop: 05/06/23 14:26 Last Admin: 05/06/23 14:25 Dose: 10 ml Documented By: VIKKI Ioversol (Ioversol 350 Mg 125ml Prefilled Syringe) 118 ml IV ONCE ONE Stop: 05/06/23 09:06 Last Admin: 05/06/23 09:07 Dose: 118 ml Documented By: ISABEL Medical Decision Making Laboratory Data Attestation: I reviewed the patient's lab results. 05/06/23 08:40 05/06/23 08:40 Lab Results 05/06/23 05/06/23 05/06/23 Range/Units 08:40 08:40 08:40 WBC 6.41 (4.8-10.8) K/ul RBC 4.41 L (4.70-6.10) M/uL Hgb 13.1 L (14.0-18.0) g/dl POC Hgb (14.0-18.0) g/dl Hct 40.0 L (42.0-52.0) % POC Hct (42-52) % MCV 90.7 (80.0-100.0) fL MCH 29.7 (25.0-34.0) pg MCHC 32.8 (32.0-36.0) g/dL RDW Std Deviation 44.8 (36.4-46.3) fL RDW Coeff of Marie 13.3 (11.5-14.5) % Plt Count 219 (130-400) K/uL MPV 9.4 (9.4-12.4) fL Immature Gran % (Auto) 0.3 % Neut % (Auto) 56.9 % Lymph % (Auto) 25.7 % Towner % (Auto) 10.9 % Eos % (Auto) 5.6 % Baso % (Auto) 0.6 % Neut # (Auto) 3.64 (1.40-6.50) K/uL Lymph # (Auto) 1.65 (1.20-3.40) K/uL Towner # (Auto) 0.70 H (0.11-0.59) K/uL Eos # (Auto) 0.36 (0.00-0.50) K/uL Baso # (Auto) 0.04 (0.00-0.20) K/uL Immature Gran # (Auto) 0.02 (0.01-0.20) K/uL PT 10.9 (9.0-12.0) Seconds INR 1.0 (0.9-1.1) APTT 29.4 (21.0-31.0) Seconds PTT Ratio 1.0 POC Sodium (135-144) mmol/L Sodium 139 (136-145) mmol/L POC Potassium (3.3-5.0) mmol/L Potassium 4.1 (3.5-5.1) mmol/L POC Chloride (101-112) mmol/L Chloride 105 (98-107) mmol/L Carbon Dioxide 28 (21-32) mmol/L POC Total CO2 (24-31) mmol/L Anion Gap 6 (3-11) POC Anion Gap (16-25) mmol/L POC BUN (7-18) mg/dl BUN 16 (6-23) mg/dl Creatinine 1.13 (0.6-1.4) mg/dl POC Creatinine (0.6-1.3) mg/dl Est Cr Clr Drug Dosing 57.8 ml/min Est GFR ( Amer) 68.3 ml/min Est GFR (Non-Af Amer) 58.9 ml/min BUN/Creatinine Ratio 14.2 (10-20) Glucose 133 H (70-99(Fasting)) mg/dl POC Glucose (other) (70-99) mg/dl Calcium 9.6 (8.6-10.3) mg/dl POC Ioniz Calcium Jarocho (1.12-1.32) mmol/l Magnesium 2.2 (1.7-2.4) mg/dl Total Bilirubin 1.1 H (0.2-1.0) mg/dl AST 26 (13-39) U/L ALT 26 (7-52) U/L Alkaline Phosphatase 89 (34-104) U/L Troponin I High Sens 9.0 (0-20) pg/ml Total Protein 7.5 (6.0-8.3) gm/dl Albumin 4.3 (3.4-5.0) gm/dl Globulin 3.2 (2.5-4.0) gm/dl Albumin/Globulin Ratio 1.3 (0.9-2) Urine Color Urine Appearance (Clear) Urine pH (4.5-7.5) Ur Specific Adair (1.000-1.030) Urine Protein (Negative) Urine Glucose (UA) (Negative) Urine Ketones (Negative) Urine Blood (Negative) Urine Nitrite (Negative) Urine Bilirubin (Negative) Urine Urobilinogen (Negative) Ur Leukocyte Esterase (Negative) Blood Type Antibody Screen 05/06/23 05/06/23 05/06/23 Range/Units 08:52 08:52 09:39 WBC (4.8-10.8) K/ul RBC (4.70-6.10) M/uL Hgb (14.0-18.0) g/dl POC Hgb 13.3 L (14.0-18.0) g/dl Hct (42.0-52.0) % POC Hct 39 L (42-52) % MCV (80.0-100.0) fL MCH (25.0-34.0) pg MCHC (32.0-36.0) g/dL RDW Std Deviation (36.4-46.3) fL RDW Coeff of Marie (11.5-14.5) % Plt Count (130-400) K/uL MPV (9.4-12.4) fL Immature Gran % (Auto) % Neut % (Auto) % Lymph % (Auto) % Towner % (Auto) % Eos % (Auto) % Baso % (Auto) % Neut # (Auto) (1.40-6.50) K/uL Lymph # (Auto) (1.20-3.40) K/uL Towner # (Auto) (0.11-0.59) K/uL Eos # (Auto) (0.00-0.50) K/uL Baso # (Auto) (0.00-0.20) K/uL Immature Gran # (Auto) (0.01-0.20) K/uL PT (9.0-12.0) Seconds INR (0.9-1.1) APTT (21.0-31.0) Seconds PTT Ratio POC Sodium 142 (135-144) mmol/L Sodium (136-145) mmol/L POC Potassium 3.8 (3.3-5.0) mmol/L Potassium (3.5-5.1) mmol/L POC Chloride 103 (101-112) mmol/L Chloride (98-107) mmol/L Carbon Dioxide (21-32) mmol/L POC Total CO2 23 L (24-31) mmol/L Anion Gap (3-11) POC Anion Gap 20.0 (16-25) mmol/L POC BUN 15 (7-18) mg/dl BUN (6-23) mg/dl Creatinine (0.6-1.4) mg/dl POC Creatinine 1.3 (0.6-1.3) mg/dl Est Cr Clr Drug Dosing ml/min Est GFR ( Amer) ml/min Est GFR (Non-Af Amer) ml/min BUN/Creatinine Ratio (10-20) Glucose (70-99(Fasting)) mg/dl POC Glucose (other) 133 H (70-99) mg/dl Calcium (8.6-10.3) mg/dl POC Ioniz Calcium Jarocho 1.17 (1.12-1.32) mmol/l Magnesium (1.7-2.4) mg/dl Total Bilirubin (0.2-1.0) mg/dl AST (13-39) U/L ALT (7-52) U/L Alkaline Phosphatase (34-104) U/L Troponin I High Sens (0-20) pg/ml Total Protein (6.0-8.3) gm/dl Albumin (3.4-5.0) gm/dl Globulin (2.5-4.0) gm/dl Albumin/Globulin Ratio (0.9-2) Urine Color Yellow Urine Appearance Clear (Clear) Urine pH 7.0 (4.5-7.5) Ur Specific Adair 1.023 (1.000-1.030) Urine Protein Negative (Negative) Urine Glucose (UA) Negative (Negative) Urine Ketones Negative (Negative) Urine Blood Negative (Negative) Urine Nitrite Negative (Negative) Urine Bilirubin Negative (Negative) Urine Urobilinogen Negative (Negative) Ur Leukocyte Esterase Negative (Negative) Blood Type O Positive Antibody Screen NEGATIVE Imaging Data Attestation: I personally reviewed and interpreted this imaging study as follows: My Impression: CT head: No ICH Radiologist's Impression: Chest X-Ray 05/06/23 08:44 XR chest 1V portable CLINICAL HISTORY: neuro deficit, acute stroke suspected COMPARISON STUDY: Chest radiograph November 17, 2021. FINDINGS: Median sternotomy wires and mediastinal surgical clips are noted. There is stable cardiomegaly. No evidence for pulmonary edema. No pneumothorax or pleural effusion. The appearance of the chest is unchanged. IMPRESSION: No acute cardiopulmonary findings. No change in appearance of the chest. ACT 112: Negative or not required by law. Electronically signed by: Cm Soto M.D. 05/06/2023 9:[address] 05/06/23 08:44 CT OF THE HEAD WITHOUT CONTRAST CLINICAL HISTORY: neuro deficit, acute stroke suspected. Headache. COMPARISON STUDY: MRI of the brain November 18, 2021. Head CT November 17, 2021. TECHNIQUE: Helical axial images of the head were obtained without IV contrast. Automated exposure control was utilized for the study. A dose lowering technique was utilized adhering to the principles of ALARA. FINDINGS: No acute intracranial hemorrhage, midline shift or mass effect is present. The ventricular system is unremarkable. The basal cisterns are patent. An old lacunar infarct within the left basal ganglia is unchanged. The appearance of the brain is unchanged. No extra-axial collections are present. There are no findings to suggest acute dural sinus thrombosis or acute territorial infarct. No significant calvarial abnormalities are present. IMPRESSION: No acute intracranial findings. No change in appearance of the brain. ACT 112: Negative or not required by law. Electronically signed by: Cm Soto M.D. 05/06/2023 9:16 AM Head CTA 05/06/23 08:44 CTA ANGIOGRAPHY OF THE HEAD CLINICAL HISTORY: neuro deficit, acute stroke suspected COMPARISON STUDY: CTA of the head November 27, 2021. TECHNIQUE: Helical axial images of the head were obtained following uneventful intravenous administration of 118 cc of Optiray. Sagittal and coronal reconstructions were viewed as well as maximal intensity projections on an independent 3-D workstation. Automated exposure control was utilized for the study. A dose lowering technique was utilized adhering to the principles of ALARA. CT DOSE: 1163.80 mGy.cm FINDINGS: No acute intracranial hemorrhage, midline shift or mass effect is present. Ventricular system is stable. There are no extra-axial collections. Trace fluid within the left mastoid air cells is noted. 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 The bilateral M1, M2, A1 and A2 segments are patent. 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 persistence of the right posterior cerebral artery is noted. Right vertebral artery is dominant. No central vessel occlusion. No additional intracranial aneurysms. IMPRESSION: 1. No central vessel occlusion. 2. 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 3. 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 ACT 112: Negative or not required by law. Electronically signed by: Cm Soto M.D. 05/06/2023 9:37 AM Neck CTA 05/06/23 08:44 CT ANGIOGRAPHY OF THE NECK WITH CONTRAST CLINICAL HISTORY: neuro deficit, acute stroke suspected COMPARISON STUDY: CTA of the neck November 17, 2021. Technique: CT angiography of the carotid and vertebral arteries was obtained using Optiray and 3D reconstruction on an independent workstation. NASCET criteria was utilized. Automated exposure control was utilized for the study. A dose lowering technique was utilized adhering to the principles of ALARA. Findings: Visualized portions of the lung apices are unremarkable. There is no cervical lymphadenopathy. The bilateral common carotid, cervical internal carotid and vertebral arteries are patent. There is no significant stenosis within these vessels. There is mild plaque within bilateral carotid bifurcations. The right vertebral artery is dominant. There is no dissection or aneurysm within the neck. IMPRESSION: No stenosis or dissection within the bilateral common carotid, cervical internal carotid or vertebral arteries. ACT 112: Negative or not required by law. Electronically signed by: Cm Soto M.D. 05/06/2023 9:28 AM ECG Data Attestation: I personally reviewed and interpreted this ECG as follows: Rate (beats per minute): 56 Rhythm: + normal sinus ECG Intervals/blocks: + First degree AV block, + Normal QRS and + Normal QT-c ECG ST segments: + Normal ST segments MDM Narrative Cardiac monitoring: An order was placed for continuous cardiac monitoring. The monitor shows a rate of 60 with sinus rhythm interpreted by me No code stroke was called as the patient's symptoms have been waxing and waning for the last week. Vital signs stable. Imaging within normal limits. Labs within normal limits. Patient's dysarthria is mildly improved. Patient was given option for inpatient observation versus outpatient follow-up and after discussion with his daughter they decided for inpatient observation for neurology consult and MRIs. Hospitalist team made aware. Impression & Plan Stroke-like symptoms Discharge Plan Visit Data Chief Complaint: Headache Stated Complaint: HEADACHE, NAUSEA ED Provider: Adam Castro Discharge Problem: Stroke-like symptoms Patient Disposition: Admitted As Inpatient Discharge Instructions Interventions: ED Discharge Assessment Last Done: 05/06/23 16:02
--- NOTE | 2023-05-06 09:18 | CT Scan Report ---
CT OF THE HEAD WITHOUT CONTRAST CLINICAL HISTORY: neuro deficit, acute stroke suspected. Headache. COMPARISON STUDY: MRI of the brain November 18, 2021. Head CT November 17, 2021. TECHNIQUE: Helical axial images of the head were obtained without IV contrast. Automated exposure con trol was utilized for the study. A dose lowering technique was utilized adhering to the principles o f ALARA. FINDINGS: No acute intracranial hemorrhage, midline shift or mass effect is present. The ventricular system is unremarkable. The basal cisterns are patent. An old lacunar infarct within the left basal g anglia is unchanged. The appearance of the brain is unchanged. No extra-axial collections are present . There are no findings to suggest acute dural sinus thrombosis or acute territorial infarct. No sign ificant calvarial abnormalities are present. IMPRESSION: No acute intracranial findings. No change in appearance of the brain. ACT 112: Negative or not required by law. Electronically signed by: Cm Soto M.D. 05/06/2023 9:16 AM
[2023-05-06 09:20] LABS: BUN Creatinine Ratio 14.2 (10-20); Calcium 9.6 mg/dl (8.6-10.3); Creatinine Clr Calc Pharmacy 57.8 ml/min; Est GFR (African American) 68.3 ml/min; Est GFR (Non-African American) 58.9 ml/min; Magnesium 2.2 mg/dl (1.7-2.4); Potassium 4.1 mmol/L (3.5-5.1)
[2023-05-06 09:21] LABS: Albumin Globulin Ratio 1.3 (0.9-2); Albumin Level 4.3 gm/dl (3.4-5.0); Bilirubin,Total 1.1 mg/dl (0.2-1.0); Globulin 3.2 gm/dl (2.5-4.0); Total Protein 7.5 gm/dl (6.0-8.3)
--- NOTE | 2023-05-06 09:30 | CT Scan Report ---
CT ANGIOGRAPHY OF THE NECK WITH CONTRAST CLINICAL HISTORY: neuro deficit, acute stroke suspected COMPARISON STUDY: CTA of the neck November 17, 2021. Technique: CT angiography of the carotid and vertebral arteries was obtained using Optiray and 3D rec onstruction on an independent workstation. NASCET criteria was utilized. Automated exposure control was utilized for the study. A dose lowering technique was utilized adhering to the principles of ALA RA. Findings: Visualized portions of the lung apices are unremarkable. There is no cervical lymphadenopat hy. The bilateral common carotid, cervical internal carotid and vertebral arteries are patent. There is no significant stenosis within these vessels. There is mild plaque within bilateral carotid bifurc ations. The right vertebral artery is dominant. There is no dissection or aneurysm within the neck. IMPRESSION: No stenosis or dissection within the bilateral common carotid, cervical internal carotid or vertebral arteries. ACT 112: Negative or not required by law. Electronically signed by: Cm Soto M.D. 05/06/2023 9:28 AM
[2023-05-06 09:33] LABS: Partial Thromboplastin Time 29.4 Seconds (21.0-31.0); Prothrombin Time 10.9 Seconds (9.0-12.0)
--- NOTE | 2023-05-06 09:39 | CT Scan Report ---
CTA ANGIOGRAPHY OF THE HEAD CLINICAL HISTORY: neuro deficit, acute stroke suspected COMPARISON STUDY: CTA of the head November 27, 2021. TECHNIQUE: Helical axial images of the head were obtained following uneventful intravenous administr ation of 118 cc of Optiray. Sagittal and coronal reconstructions were viewed as well as maximal inten sity projections on an independent 3-D workstation. Automated exposure control was utilized for the study. A dose lowering technique was utilized adhering to the principles of ALARA. CT DOSE: 1163.80 mGy.cm FINDINGS: No acute intracranial hemorrhage, midline shift or mass effect is present. Ventricular syst em is stable. There are no extra-axial collections. Trace fluid within the left mastoid air cells is noted. 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 The bilatera l M1, M2, A1 and A2 segments are patent. 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 persistence of the right posterior cerebral artery is noted. Right vertebral artery is dominant. No central vessel occlusion. No additional intracranial aneurysms. IMPRESSION: 1. No central vessel occlusion. 2. 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 3. 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 ACT 112: Negative or not required by law. Electronically signed by: Cm Soto M.D. 05/06/2023 9:37 AM
[2023-05-06 09:53] LABS: Appearance Urine Clear (Clear); Bilirubin Urine Negative (Negative); Blood Urine Negative (Negative); Color Urine Yellow; Glucose Urine UA Negative (Negative); Ketones Urine Negative (Negative); Leukocyte Esterase Urine Negative (Negative); Nitrite Urine Negative (Negative); Protein Urine Negative (Negative); Specific Gravity Urine 1.023 (1.000-1.030); Urobilinogen Urine Negative (Negative)
--- NOTE | 2023-05-06 09:56 | XRay Report ---
XR chest 1V portable CLINICAL HISTORY: neuro deficit, acute stroke suspected COMPARISON STUDY: Chest radiograph November 17, 2021. FINDINGS: Median sternotomy wires and mediastinal surgical clips are noted. There is stable cardiomeg adam. No evidence for pulmonary edema. No pneumothorax or pleural effusion. The appearance of the ches t is unchanged. IMPRESSION: No acute cardiopulmonary findings. No change in appearance of the chest. ACT 112: Negative or not required by law. Electronically signed by: Cm Soto M.D. 05/06/2023 9:54 AM
--- NOTE | 2023-05-06 11:55 | History & Physical Report ---
Date of Service May 06, 2023 Assessment & Plan (1) Stroke-like symptoms: Plan: Suspect more recrudescence of his prior stroke symptoms when he is having severe pain rather than new ischemia event Given much worse dysphasia than normal although now resolving will repeat brain MRI w/wo IV contrast Continue routine medications otherwise and treat his headache as tension coming from his neck PT/OT/speech evaluations Lipid and HbA1C with AM labs Consult neurology (2) Headache: Plan: Occurs with his stroke-like symptoms although these appear to be recrudescence of old symptoms. Suspect tension - consider follow up with headache clinic MRI cervical spine given neck pain with his headache (3) Right leg pain: Plan: Suspect due to lack of movement from his recrudesence of stroke area but will get US venous and arterial dopplers given claudication and calf pain Plan VTE Prophylaxis - given ambulatory and likely short duration of stay will hold off chemical anticoagulation Diet - heart healthy Disposition - observation to PCU Admission and Anticipated Discharge Date Admission Date: May 06, 2023 History of Present Illness Chief Complaint: Right sided weakness, expressive dysphasia Primary Care Provider: Дмитрий Shah MD Samson Romero is an 87 year old male who presents to the ER with headache, expressive dysphasia and right sided weakness. He reports symptoms started today after he got up around 6am this morning after he got up. Headache 7-9/10 then, currently 1-2/10. Occurs bilateral, constant at the front of his head, no light sensitivity but feels like he needs to close his eyes and improves with a nap usually. Associated expressive dysphasia, mumbling when this occurs and weakness especially on the right side of his body. He reports this is a recurring set of symptoms. Her daughter tells me they have been put down to TIAs in the past, however they are happening now on near daily basis and getting more severe. Unclear exactly how long they have been going on but [facility] [place] since they have been occurring. Over the last 2 months and especially the last week they have become more frequent, more severe and lasting a longer generation. Since coming to the ER they both report his speech and strength have already significant improved. He was also notably seen by Dr Colindres in May 2022 and diagnosed with progressive supranuclear palsy and was started on Sinemet although the patient does not remember this. He has a history of strokes in 2006 and 2013 with a right sided weakness, possible also had change in speech without a complete recovery. He has had trouble with walking, speech problems and hand co- ordination since his strokes. Allergies Allergy/AdvReac Type Severity Reaction Status Date / Time latex Allergy Mild itchiness Verified 05/06/23 11:34 and rash Sulfa (Sulfonamide Allergy Mild Rash Verified 05/06/23 11:34 Antibiotics) Utodgep-NAU-QfI Reductase Allergy Unknown UNKNOWN, Verified 05/06/23 11:34 Inhibitor PER [Thatjoi-Xgd-Lhv Reductase PASQURELLO Inhibitor] chlorthalidone AdvReac Intermediate Leg pain, Verified 05/06/23 11:34 low sodium, weight loss ibuprofen AdvReac Intermediate HTN Verified 05/06/23 11:34 Home Medications Medication Instructions Recorded Confirmed Type clopidogrel 75 mg tablet 75 mg PO QAM 08/15/18 05/06/23 History metoprolol tartrate 50 mg tablet 50 mg PO BID 08/15/18 05/06/23 History finasteride 5 mg tablet 5 mg PO DAILY 04/03/19 05/06/23 History bupropion HCl 200 mg tablet,12 hr 200 mg PO DAILY #30 ea 09/16/19 05/06/23 Rx sustained-release polyethylene glycol 3350 17 17 g PO DAILY PRN Constipation 09/08/20 05/06/23 History gram/dose oral powder (Miralax) sertraline 100 mg tablet 100 mg PO DAILY 04/29/21 05/06/23 History Wheeled Walker #1 ea 05/20/21 11/10/22 Rx omeprazole 20 mg capsule,delayed 20 mg PO QAM 06/08/21 05/06/23 History release multivitamin 1 tab PO DAILY 08/04/21 05/06/23 History tamsulosin 0.4 mg capsule (Flomax) 0.4 mg PO HS #30 caps 08/06/21 05/06/23 Rx atorvastatin 40 mg tablet 40 mg PO .QHS 06/08/22 05/06/23 History magnesium oxide 420 mg tablet 420 mg PO DAILY Sleep and bowels 10/31/22 05/06/23 History senna-docusate sodium tablet 1 tab PO BID 10/31/22 05/06/23 History amlodipine 5 mg tablet 5 mg PO BID 11/10/22 05/06/23 History hydralazine 25 mg tablet 25 mg PO BID 05/06/23 05/06/23 History lisinopril 20 mg tablet 20 mg PO BID 05/06/23 05/06/23 History Past Med/Surg History Medical History Anxiety Borderline diabetes mellitus BPH (benign prostatic hyperplasia) Congestive heart failure Depression DVT prophylaxis Gait abnormality GERD (gastroesophageal reflux disease) Hyperlipidemia Hypertension Myocardial Infarction 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 arevalo Osteoarthritis Poor historian spoke w/ pt's ([place]) Right upper lobe pneumonia (2014) Screening due Sleep apnea bipap Stroke x3 - last episode 4-5 years ago - [facility] - does not follow w/ neurologist - w/ rt sided weakness to rle, some garbled speech - cause? Surgical History History of back surgery History of bilateral cataract extraction History of cardiac cath 2006 - [facility] [place] History of carpal tunnel surgery of right wrist History of colonoscopy History of coronary artery bypass graft ? vessels - [facility] [place] - 2006 - follows w/ dr. arevalo History of esophagogastroduodenoscopy (EGD) History of herniorrhaphy History of incision and drainage (08/05/21) Incision and Drainage left Perirectal Abscess Dr. Sam 08/05/2021 History of surgery I&D of perirectal abscess History of tonsillectomy History of tooth extraction Hx of CABG (2006) Family History Sister Cancer Other No family history of adverse response to anesthesia Denies family history of Ovarian cancer Prostate cancer Breast cancer Colorectal cancer Social History Smoking Status: Never smoker Cigarettes Per Day: quit in 1959; Second Hand Exposure: No; Do You Dip or Chew Tobacco: No; Hx Alcohol Use: Yes Alcohol type: hard liquor Hx Substance Use: No Preferred Language: Greenlandic Communication Ability: Effective Hearing Ability: Use of Hearing Aid Consulting Engineer Required: No Beliefs That Will Affect Care: Scientologist Scientologist Beliefs: Shinto marital status: Current Living Situation: Family Current Living Situation Comment: At home with and daughter current occupational status: retired How many Children do You have: 1 Feels Safe at Home: Yes Safety Concerns: Feels Safe At This Time Childhood Exposure to Second-Hand Smoke: Yes Diet: low salt caffeine: No Dental Care, Regularly: Yes Physical Activity Frequency: Does not Exercise Seatbelt Use: always Assistive Devices: CPAP Review of Systems Review of Systems: All systems reviewed & are unremarkable except as noted in HPI & below 2 weeks of exertion right leg pain, pain and swelling Physical Exam Constitutional: WD/WN, vitals as above Eyes: PERRL, conjunctivae normal, anicteric sclerae Respiratory: normal respiratory effort, lungs clear to auscultation Cardiovascular: RRR, no murmur, no edema Extremities: normal capillary refill and + calf tenderness (right) Gastrointestinal (Abdomen): normal bowel sounds, soft, nontender, no hepatosplenomegaly Musculoskeletal: pain on palpation of superior trapezius muscles Skin: no rashes, warm and dry Neurologic: Mild pronator drift on right side, Right lateral neck movement 4/5, right head of transport logistics strength 4/5, Right hip flexion 4/5, right ankle dorsi/plantar flexion 3/5, otherwise 5/5 throughout Psychiatric: A+Ox3, euthymic affect Genitourinary: no CVA tenderness Results & Data Results & Data Vital Signs (Past 12 Hours) Vital Signs Temp Pulse Pulse Resp BP BP Pulse Ox 05/06/23 11:00 51 L 18 05/06/23 11:00 148/71 H 05/06/23 10:30 53 L 23 05/06/23 10:30 156/84 H 05/06/23 10:13 52 L 22 93 05/06/23 10:13 145/71 H 05/06/23 10:00 54 L 24 97 05/06/23 09:30 60 22 96 05/06/23 09:13 142/80 H 05/06/23 09:13 59 L 18 96 05/06/23 09:12 97 05/06/23 08:35 60 21 05/06/23 10:00 53 L 16 145/71 H 93 05/06/23 09:14 57 L 16 142/80 H 95 05/06/23 08:58 61 05/06/23 08:26 36.8 C 57 L 18 182/74 H 98 Laboratory Results Abnormal lab results 05/06/23 05/06/23 05/06/23 Range/Units 08:40 08:40 08:52 RBC 4.41 L (4.70-6.10) M/uL Hgb 13.1 L (14.0-18.0) g/dl POC Hgb 13.3 L (14.0-18.0) g/dl Hct 40.0 L (42.0-52.0) % POC Hct 39 L (42-52) % [place] # (Auto) 0.70 H (0.11-0.59) K/uL POC Total CO2 23 L (24-31) mmol/L Glucose 133 H (70-99(Fasting)) mg/dl POC Glucose (other) 133 H (70-99) mg/dl Total Bilirubin 1.1 H (0.2-1.0) mg/dl Diagnostic Findings XR chest 1V portable CLINICAL HISTORY: neuro deficit, acute stroke suspected COMPARISON STUDY: Chest radiograph November 17, 2021. FINDINGS: Median sternotomy wires and mediastinal surgical clips are noted. There is stable cardiomegaly. No evidence for pulmonary edema. No pneumothorax or pleural effusion. The appearance of the chest is unchanged. IMPRESSION: No acute cardiopulmonary findings. No change in appearance of the chest. CT OF THE HEAD WITHOUT CONTRAST CLINICAL HISTORY: neuro deficit, acute stroke suspected. Headache. COMPARISON STUDY: MRI of the brain November 18, 2021. Head CT November 17, 2021. TECHNIQUE: Helical axial images of the head were obtained without IV contrast. Automated exposure control was utilized for the study. A dose lowering technique was utilized adhering to the principles of ALARA. FINDINGS: No acute intracranial hemorrhage, midline shift or mass effect is present. The ventricular system is unremarkable. The basal cisterns are patent. An old lacunar infarct within the left basal ganglia is unchanged. The appearance of the brain is unchanged. No extra-axial collections are present. There are no findings to suggest acute dural sinus thrombosis or acute territorial infarct. No significant calvarial abnormalities are present. IMPRESSION: No acute intracranial findings. No change in appearance of the b rain. CTA ANGIOGRAPHY OF THE HEAD CLINICAL HISTORY: neuro deficit, acute stroke suspected COMPARISON STUDY: CTA of the head November 27, 2021. TECHNIQUE: Helical axial images of the head were obtained following uneventful intravenous administration of 118 cc of Optiray. Sagittal and coronal reconstructions were viewed as well as maximal intensity projections on an independent 3-D workstation. Automated exposure control was utilized for the study. A dose lowering technique was utilized adhering to the principles of ALARA. CT DOSE: 1163.80 mGy.cm FINDINGS: No acute intracranial hemorrhage, midline shift or mass effect is present. Ventricular system is stable. There are no extra-axial collections. Trace fluid within the left mastoid air cells is noted. 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 The bilateral M1, M2, A1 and A2 segments are patent. 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 persistence of the right posterior cerebral artery is noted. Right vertebral artery is dominant. No central vessel occlusion. No additional intracranial aneurysms. IMPRESSION: 1. No central vessel occlusion. 2. 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 3. 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 CT ANGIOGRAPHY OF THE NECK WITH CONTRAST CLINICAL HISTORY: neuro deficit, acute stroke suspected COMPARISON STUDY: CTA of the neck November 17, 2021. Technique: CT angiography of the carotid and vertebral arteries was obtained using Optiray and 3D reconstruction on an independent workstation. NASCET criteria was utilized. Automated exposure control was utilized for the study. A dose lowering technique was utilized adhering to the principles of ALARA. Findings: Visualized portions of the lung apices are unremarkable. There is no cervical lymphadenopathy. The bilateral common carotid, cervical internal carotid and vertebral arteries are patent. There is no significant stenosis within these vessels. There is mild plaque within bilateral carotid bifurcations. The right vertebral artery is dominant. There is no dissection or aneurysm within the neck. IMPRESSION: No stenosis or dissection within the bilateral common carotid, cervical internal carotid or vertebral arteries. Medications Administered ER Medications Given: None ECG Rate (beats per minute): 56 Rhythm: sinus bradycardia Findings: + 1st degree AV block Comparison ECG Date: from (November 17, 2021) Change: the following changes noted (incomplete RBBB no longer present, criteria for anterior infarct no longer present) Code Status & VTE Plan Code Status All treatment outside of a cardiac arrest VTE Prophylaxis Plan VTE Prophylaxis will be ordered: Yes PG Care Time/CCT Total # of Minutes Spent Total Time Spent with Patient: Total time spent is greater than 50% in coordination of care (as documented) at patient's floor/unit and/or counseling patient: Coding Level of Care Code 46089 INT INP/OBS CARE 3/75MIN Diagnoses Stroke-like symptoms R29.90 Headache R51.9 Right leg pain M79.604
[2023-05-06] MEDS ORDERED: GADOBUTROL 10ML VIAL IV ONE (14:25)
--- NOTE | 2023-05-06 14:25 | Magnetic Resonance Report ---
MRI OF THE CERVICAL SPINE WITHOUT CONTRAST CLINICAL HISTORY: daily headaches and neck pain COMPARISON: CTA of the neck performed earlier today. Cervical spine CT October 12, 2012. TECHNIQUE: Utilizing a 1.5 Danuta magnet and dedicated coil, multiplanar, multiecho imaging of the ce rvical spine was performed without IV contrast. FINDINGS: Alignment of the cervical spine is anatomic with the exception of slight anterolisthesis of C5 on C6. Vertebral body heights are maintained. There is no marrow edema or marrow placement. Cervical cord s ignal and caliber are normal. There is no intracanalicular mass or fluid collection. Paravertebral so ft tissues are unremarkable. There is severe multilevel facet arthrosis and moderate multilevel degen erative disc disease. C2-C3: The central canal and neural foramen are patent. C3-C4: The central canal is patent. There is moderate facet arthrosis. There is mild bilateral neura l foraminal stenosis. C4-C5: Central canal is patent. There is mild bilateral facet arthrosis. The neural foramen are roberts nt. C5-C6: Slight anterolisthesis is noted due to severe facet arthrosis. There is mild disc bulge. Liga mentous hypertrophy is present. There is moderate central canal stenosis. Patent AP diameter of the c anal is 6 mm. Moderate right and severe left neural foraminal stenosis is present. C6-C7: Central disc protrusion is noted. This indents the ventral aspect of the cord. There is also severe facet arthrosis with ligamentous hypertrophy. There is moderate central canal stenosis. Mild r ight and moderate left neural foraminal stenosis is present. C7-T1: The central canal and neural foramen are patent. IMPRESSION: 1. No acute process within the cervical spine. No fractures. Normal cervical cord signal and caliber. 2. Severe multilevel facet arthrosis and moderate degenerative disc disease with moderate central can al stenosis at C5-C6 and C6-C7. 3. Multilevel neural foraminal stenosis, as detailed above. ACT 112: Negative or not required by law. Electronically signed by: Cm Soto M.D. 05/06/2023 2:23 PM
--- NOTE | 2023-05-06 15:09 | Magnetic Resonance Report ---
MRI OF THE BRAIN WITHOUT AND WITH IV CONTRAST CLINICAL HISTORY: expressive dysphasia, dysarthria, frontal headache COMPARISON STUDY: MRI of the brain November 18, 2021. Head CT and CTA of the head performed earlier [place]. TECHNIQUE: Utilizing a 1.5 Danuta magnet and dedicated coil, multiplanar, multiecho imaging of the br ain was performed pre and postcontrast administration. IV administration of [address] was uneventful. FINDINGS: There are no foci of restricted diffusion to suggest acute infarct. No acute intracranial h emorrhage, midline shift or mass effect is present. There is moderate atrophy. Ventricular system is stable. Basal cisterns are patent. There are no extra-axial collections. No intracranial mass or path ologic enhancement is identified. Old lacunar infarct within the left basal ganglia is unchanged. A f ew punctate white matter T2 hyperintense foci are unchanged. Small amount of fluid within left mastoi d air cells is present. IMPRESSION: 1. No acute intracranial findings. 2. No change in appearance of the brain since MRI of November 18, 2021. 3. No intracranial mass or pathologic enhancement. 4. Small amount of fluid within the left mastoid air cells. ACT 112: Negative or not required by law. Electronically signed by: Cm Soto M.D. 05/06/2023 3:07 PM
[2023-05-06] MEDS ORDERED: POLYETHYLENE (MIRALAX) 17 GM PACK PO PRN (15:10)
[2023-05-06] MEDS ORDERED: PHARMACIST DISCHARGE MED REC CONSULT PRN (15:10)
--- NOTE | 2023-05-06 17:32 | Electrocardiogram Report ---
Test Reason : Blood Pressure : / mmHG Vent. Rate : 056 BPM Atrial Rate : 056 BPM P-R Int : 234 ms QRS Dur : 102 ms QT Int : 460 ms P-R-T Axes : 039 067 086 degrees QTc Int : 443 ms Sinus bradycardia with 1st degree A-V block Possible Left atrial enlargement Borderline ECG When compared with ECG of 17-NOV-2021 17:39, Incomplete right bundle branch block is no longer Present Criteria for Anterior infarct are no longer Present Confirmed by Дмитрий Jennings ([id number]) on 05/06/2023 5:32:06 PM Referred By: REFERRED SELF Confirmed By:Keagan Jennings
[2023-05-06] MEDS: DOCUSATE SODIUM/SENNA 50/8.6MG TAB PO SCH (20:00)
[2023-05-06] MEDS: METOPROLOL TARTRATE 50 MG TAB PO SCH ×2 (20:01→21:44)
[2023-05-06] MEDS: lisinopril 20 MG TAB PO SCH (20:01)
[2023-05-06] MEDS: hydrALAZINE HCL 25 MG TAB PO SCH (20:01)
[2023-05-06] MEDS: amLODIPine BESYLATE 5 MG TAB PO SCH (20:02)
[2023-05-06] MEDS ORDERED: ATORVASTATIN 40 MG TAB PO SCH (21:00)
[2023-05-06] MEDS ORDERED: TAMSULOSIN HCL 0.4 MG CAP PO SCH (21:00)
[2023-05-06] MEDS: ACETAMINOPHEN 325 MG TAB PO PRN (21:44)
--- NOTE | 2023-05-07 02:39 | Ultrasound Report ---
Exam(s): US VENOUS RIGHT LOWER EXTREMITY EXAM: US Duplex Right Lower Extremity Veins CLINICAL HISTORY: Reason for exam: calf pain. TECHNIQUE: Real-time duplex ultrasound scan of the right lower extremity veins integrating B-mode two-dimensional vascular structure, Doppler spectral analysis, color flow Doppler imaging and compression. COMPARISON: No relevant prior studies available. FINDINGS: Deep veins: Unremarkable. No DVT in the visualized common femoral, femoral, proximal deep femoral or popliteal veins. The veins demonstrate normal color flow, are normally compressible, with normal phasic flow and/or augmentation response. Soft tissues: No acute findings. No popliteal cyst. IMPRESSION: No evidence of right lower extremity deep venous thrombosis. Electronically signed by: Suman Mustafa M.D. 05/07/23 02:38 AM
[2023-05-07 07:32] LABS: Basophils # (auto) 0.06 K/uL (0.00-0.20); Basophils % (auto) 0.9 %; Eosinophils # (auto) 0.41 K/uL (0.00-0.50); Eosinophils % (auto) 5.9 %; Hematocrit (blood only) 41.9 % (42.0-52.0); Hemoglobin 13.7 g/dl (14.0-18.0); Immature Granulocytes # (auto) 0.01 K/uL (0.01-0.20); Immature Granulocytes % (auto) 0.1 %; Lymphocytes # (auto) 1.62 K/uL (1.20-3.40); Lymphocytes % (auto) 23.2 %; Mean Corpuscular Hemoglobin 29.2 pg (25.0-34.0); Mean Corpuscular Hgb Conc 32.7 g/dL (32.0-36.0); Mean Corpuscular Volume 89.3 fL (80.0-100.0); Monocytes # (auto) 0.79 K/uL (0.11-0.59); Monocytes % (auto) 11.3 %; Neutrophils % (auto) 58.6 %; Platelet Count 230 K/uL (130-400); RDW Coefficient of Variation 13.4 % (11.5-14.5); RDW Standard Deviation 43.8 fL (36.4-46.3); Red Blood Count 4.69 M/uL (4.70-6.10); White Blood Count 6.99 K/ul (4.8-10.8)
--- NOTE | 2023-05-07 07:35 | Ultrasound Report ---
US arterial duplex right lower extremity CLINICAL HISTORY: claudication COMPARISON STUDY: None. FINDINGS: Bilateral ankle brachial indices measure between 1.2 and 1.3. Scattered calcified plaque wi thin the right lower extremity arterial system. There are normal velocity biphasic waveforms seen thr oughout the majority the right lower extremity arterial system. No areas of arterial occlusion identi fied. IMPRESSION: No hemodynamically significant stenosis or occlusion identified within the right lower e xtremity arterial system. ACT 112: Negative or not required by law. Electronically signed by: Lalo Dunham M.D. 05/07/2023 7:33 AM
[2023-05-07 07:49] LABS: Estimated Average Glucose 105 mg/dl; Hemoglobin A1C 5.3 % (4.5-5.6)
[2023-05-07 07:51] LABS: BUN Creatinine Ratio 13.3 (10-20); Calcium 9.8 mg/dl (8.6-10.3); Chol HDL Ratio 2.7 (0-5); Creatinine Clr Calc Pharmacy 55.2 ml/min; Est GFR (African American) 68.3 ml/min; Est GFR (Non-African American) 58.9 ml/min; Potassium 3.8 mmol/L (3.5-5.1)
[2023-05-07] MEDS: amLODIPine BESYLATE 5 MG TAB PO SCH (08:43)
[2023-05-07] MEDS: lisinopril 20 MG TAB PO SCH (08:43)
[2023-05-07] MEDS: DOCUSATE SODIUM/SENNA 50/8.6MG TAB PO SCH (08:43)
[2023-05-07] MEDS: hydrALAZINE HCL 25 MG TAB PO SCH (08:43)
--- NOTE | 2023-05-07 08:48 | Neurology Consultation ---
Date of Consultation May 07, 2023 Assessment & Plan (1) Complicated migraine: Given his history of these events with migraine and chronic daily headache I suspect these are complex migraine rather than TIA/Stroke as his MRI is unremarkable. Recommend he be started on a daily preventative for migraine - would suggest topamax 25mg qhs. Otherwise agree he should follow-up with headache clinic. -- Start Topamax 25mg qhs -- Continue MEDICAL OFFICE SECRETARY plavix -- Follow-up with headache clinic -- No further neurologic workup Telehealth Consultation Telehealth Information Telehealth Information: I performed this visit using a real-time telehealth connection between my location and the patients location ([facility]). After connecting through interactive tele-video, patient was identified by name and date of and/or wristband check.Patient (or authorized healthcare housing management representative) was informed that this was a telemedicine visit and it was being conducted confidentially over secure lines. My office door was closed and no one else was present in the room with me.Patient (or authorized healthcare housing management representative) provided consent to proceed with the visit, expressed an understanding of privacy and security of the telemedicine visit, and gave permission to have a hospital housing management representative in the room in order to assist with the visit and to conduct portions of the visit, as needed. I informed the patient (or authorized healthcare housing management representative) that I reviewed their record and presented the opportunity for them to ask any questions regarding the visit today. The patient agreed to participate. History of Present Illness Reason for Consultation: Headache Requesting Physician: Dr. Mcclain Attending Physician: Connor Mcclain MD History of Present Illness Samson Romero is an 87 yo M presenting with word finding difficulties, R sided weakness in the setting of headache. He reports that yesterday his headache was 8-9/10 but today is a 1-2. He has been having these headaches intermittently for over a year with associated neurologic symptoms. At the [place] he continues to be diagnosed with TIA when they occur but has not been on any preventative medication for migraine that he can recall. He reports that he has at least a mild daily headache with these headache spikes that cause neurologic symptoms. He denies any further issues with weakness or speech changes this morning and these symptoms resolved after a migraine cocktail yesterday in the ED. Allergies Allergy/AdvReac Type Severity Reaction Status Date / Time latex Allergy Mild itchiness Verified 05/06/23 11:34 and rash Sulfa (Sulfonamide Allergy Mild Rash Verified 05/06/23 11:34 Antibiotics) Txeytvr-EXT-RqH Reductase Allergy Unknown UNKNOWN, Verified 05/06/23 11:34 Inhibitor PER [Zxyxxzo-Hbl-Qmo Reductase PASQURELLO Inhibitor] chlorthalidone AdvReac Intermediate Leg pain, Verified 05/06/23 11:34 low sodium, weight loss ibuprofen AdvReac Intermediate HTN Verified 05/06/23 11:34 Home Medications Medication Instructions Recorded Confirmed Type clopidogrel 75 mg tablet 75 mg PO QAM 08/15/18 05/06/23 History metoprolol tartrate 50 mg tablet 50 mg PO BID 08/15/18 05/06/23 History finasteride 5 mg tablet 5 mg PO DAILY 04/03/19 05/06/23 History bupropion HCl 200 mg tablet,12 hr 200 mg PO DAILY #30 ea 09/16/19 05/06/23 Rx sustained-release polyethylene glycol 3350 17 17 g PO DAILY PRN Constipation 09/08/20 05/06/23 History gram/dose oral powder (Miralax) sertraline 100 mg tablet 100 mg PO DAILY 04/29/21 05/06/23 History Wheeled Walker #1 ea 05/20/21 11/10/22 Rx omeprazole 20 mg capsule,delayed 20 mg PO QAM 06/08/21 05/06/23 History release multivitamin 1 tab PO DAILY 08/04/21 05/06/23 History tamsulosin 0.4 mg capsule (Flomax) 0.4 mg PO HS #30 caps 08/06/21 05/06/23 Rx atorvastatin 40 mg tablet 40 mg PO .QHS 06/08/22 05/06/23 History magnesium oxide 420 mg tablet 420 mg PO DAILY Sleep and bowels 10/31/22 05/06/23 History senna-docusate sodium tablet 1 tab PO BID 10/31/22 05/06/23 History amlodipine 5 mg tablet 5 mg PO BID 11/10/22 05/06/23 History hydralazine 25 mg tablet 25 mg PO BID 05/06/23 05/06/23 History lisinopril 20 mg tablet 20 mg PO BID 05/06/23 05/06/23 History Patient History Medical History Anxiety Borderline diabetes mellitus BPH (benign prostatic hyperplasia) Congestive heart failure Depression DVT prophylaxis Gait abnormality GERD (gastroesophageal reflux disease) Hyperlipidemia Hypertension Myocardial Infarction 2007 - [facility] --> C --> CABG - follows w/ dr. arevalo Osteoarthritis Poor historian spoke w/ pt's ([place]) Right upper lobe pneumonia (2014) Screening due Sleep apnea bipap Stroke x3 - last episode 4-5 years ago - [facility] - does not follow w/ neurologist - w/ rt sided weakness to rle, some garbled speech - cause? Surgical History History of back surgery History of bilateral cataract extraction History of cardiac cath 2006 - [facility] [place] --> [place]G History of carpal tunnel surgery of right wrist History of colonoscopy History of coronary artery bypass graft ? vessels - [facility] [place] - 2006 - follows w/ dr. arevalo History of esophagogastroduodenoscopy (EGD) History of herniorrhaphy History of incision and drainage (08/05/21) Incision and Drainage left Perirectal Abscess Dr. Sam 08/05/2021 History of surgery I&D of perirectal abscess History of tonsillectomy History of tooth extraction Hx of CABG (2006) Family History Sister Cancer Other No family history of adverse response to anesthesia Denies family history of Ovarian cancer Prostate cancer Breast cancer Colorectal cancer Social History Smoking Status: Never smoker Cigarettes Per Day: quit in 9; Second Hand Exposure: No; Do You Dip or Chew Tobacco: No; Hx Alcohol Use: Yes Alcohol type: hard liquor Hx Substance Use: No Preferred Language: Bulgarian Communication Ability: Effective Hearing Ability: Use of Hearing Aid Test Engine Operator Required: No Beliefs That Will Affect Care: Mormon Mormon Beliefs: Zoroastrianism marital status: Current Living Situation: Family Current Living Situation Comment: At home with and daughter current occupational status: retired How many Children do You have: 1 Feels Safe at Home: Yes Safety Concerns: Feels Safe At This Time Childhood Exposure to Second-Hand Smoke: Yes Diet: low salt caffeine: No Dental Care, Regularly: Yes Physical Activity Frequency: Does not Exercise Seatbelt Use: always Assistive Devices: CPAP Review of Systems +Headache Physical Exam Neurological Examination: Mental Status: Awake and alert. Oriented to person, place, and time. Fluent. Comprehension intact. Affect appropriate. Cranial Nerves: II: Reads NIHSS cards, pupils 3/3 to 2/2 III/IV/: Versions intact without nystagmus. VII: Facial expression symmetric VIII: Hearing intact to voice IX/X: Palate elevates symmetrically Motor: Strength was symmetric and antigravity throughout. Pronator drift was absent. There were no abnormal movements. Coordination: No dysmetria Reflexes: Unable to assess over telemedicine Results & Data Vital Signs (Past 12 Hours) Vital Signs Temp Pulse Pulse Resp BP Pulse Ox O2 Del Method 05/07/23 08:08 36.5 C 51 L 18 162/84 H 96 Room Air 05/06/23 23:59 74 05/07/23 03:00 36.4 C L 52 L 20 172/77 H 98 Room Air 05/06/23 23:00 36.5 C 73 18 151/89 H 94 Room Air 05/06/23 21:40 73 143/78 H 05/06/23 21:20 53 L 190/78 H 96 Room Air Laboratory Results Abnormal lab results 05/06/23 05/06/23 05/06/23 Range/Units 08:40 08:40 08:52 RBC 4.41 L (4.70-6.10) M/uL Hgb 13.1 L (14.0-18.0) g/dl POC Hgb 13.3 L (14.0-18.0) g/dl Hct 40.0 L (42.0-52.0) % POC Hct 39 L (42-52) % MPV (9.4-12.4) fL [place]eadle # (Auto) 0.70 H (0.11-0.59) K/uL POC Total CO2 23 L (24-31) mmol/L Glucose 133 H (70-99(Fasting)) mg/dl POC Glucose (other) 133 H (70-99) mg/dl Total Bilirubin 1.1 H (0.2-1.0) mg/dl Triglycerides (0-150) mg/dl VLDL Cholesterol, Calc (0-30) mg/dl 05/07/23 05/07/23 Range/Units 07:16 07:16 RBC 4.69 L (4.70-6.10) M/uL Hgb 13.7 L (14.0-18.0) g/dl POC Hgb (14.0-18.0) g/dl Hct 41.9 L (42.0-52.0) % POC Hct (42-52) % MPV 9.0 L (9.4-12.4) fL [place]eadle # (Auto) 0.79 H (0.11-0.59) K/uL POC Total CO2 (24-31) mmol/L Glucose 118 H (70-99(Fasting)) mg/dl POC Glucose (other) (70-99) mg/dl Total Bilirubin (0.2-1.0) mg/dl Triglycerides 175 H (0-150) mg/dl VLDL Cholesterol, Calc 35 H (0-30) mg/dl Diagnostic Findings CT/CTA/MRI - Unremarkable
[2023-05-07] MEDS ORDERED: PANTOprazole 40 MG TAB PO SCH (09:00)
[2023-05-07] MEDS ORDERED: buPROPion SR 100 MG TABCR PO SCH (09:00)
[2023-05-07] MEDS ORDERED: SERTRALINE HCL 100 MG TABLET PO SCH (09:00)
[2023-05-07] MEDS ORDERED: MAGNESIUM OXIDE 400 MG TAB PO SCH (09:00)
[2023-05-07] MEDS ORDERED: CLOPIDOGREL BISULFATE 75 MG TAB PO SCH (09:00)
[2023-05-07] MEDS ORDERED: FINASTERIDE 5 MG TAB PO SCH (09:00)
[2023-05-07] MEDS: METOPROLOL TARTRATE 50 MG TAB PO SCH (10:29)
--- NOTE | 2023-05-07 11:50 | Discharge Summary ---
Date of Service May 07, 2023 Admission HPI Per Admitting Provider Samson Romero is an 87 year old male who presents to the ER with headache, expressive dysphasia and right sided weakness. He reports symptoms started today after he got up around 6am this morning after he got up. Headache 7-05/21 then, currently 1-/. Occurs bilateral, constant at the front of his head, no light sensitivity but feels like he needs to close his eyes and improves with a nap usually. Associated expressive dysphasia, mumbling when this occurs and weakness especially on the right side of his body. He reports this is a recurring set of symptoms. Her daughter tells me they have been put down to TIAs in the past, however they are happening now on near daily basis and getting more severe. Unclear exactly how long they have been going on but [facility] [place] [facility] they have been occurring. Over the last 2 months and especially the last week they have become more frequent, more severe and lasting a longer generation. Since coming to the ER they both report his s peech and strength have already significant improved. He was also notably seen by Dr Colindres in May 2022 and diagnosed with progressive supranuclear palsy and was started on Sinemet although the patient does not remember this. He has a history of strokes in 2006 and 2013 with a right sided weakness, possible also had change in speech without a complete recovery. He has had trouble with walking, speech problems and hand co- ordination since his strokes. Principal Diagnosis Strokelike symptoms, headache Discharge Exam General-alert and oriented x3, no fevers, no chills HEENT-head atraumatic and normocephalic, pupils equal and reactive to light, extraocular muscles intact Neck-no lymphadenopathy or thyromegaly, trachea midline Chest-clear to auscultation percussion. No rales wheezing or rhonchi Cardiac-regular rate and rhythm, normal S1 and S2 Abdomen-normal bowel sounds, nontender, no hepatosplenomegaly Extremities-no cyanosis, clubbing, or edema Neuro-cranial nerves II through XII intact, motor and sensory function within normal limits, mild right hemiparesis from old CVA Psych-normal affect, normal mood Discharge Data Allergies Allergy/AdvReac Type Severity Reaction Status Date / Time latex Allergy Mild itchiness Verified 05/06/23 11:34 and rash Sulfa (Sulfonamide Allergy Mild Rash Verified 05/06/23 11:34 Antibiotics) Iavpgzi-GOF-JpH Reductase Allergy Unknown UNKNOWN, Verified 05/06/23 11:34 Inhibitor PER [Ovzriya-Nni-Jpy Reductase PASQURELLO Inhibitor] chlorthalidone AdvReac Intermediate Leg pain, Verified 05/06/23 11:34 low sodium, weight loss ibuprofen AdvReac Intermediate HTN Verified 05/06/23 11:34 Consultations 05/06/23 11:50 ED Decision to Admit Stat 05/06/23 15:10 Consult Neurology Routine Ordered Studies 05/06/23 08:44 CT angio head w con Stat CT angio neck with con Stat CT head/brain wo con Stat 05/06/23 12:34 MRI Brain [MR brain wo/w con] Stat 05/06/23 12:44 MRI Cervical [MR cervical spine wo con] Urgent 05/07/23 US arterial duplex LE RT Routine US venous doppler LE RT Routine Hospital Course (1) Stroke-like symptoms: MRI scan negative for acute CVA. 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 He has been evaluated by neurology who recommends Topamax at bedtime for treatment of his headache which may have caused some of his neurologic symptoms. He is otherwise stable. (2) Headache: Occurs with his stroke-like symptoms although these appear to be recrudescence of old symptoms. Neurology consultation appreciated. They recommend addition of Topamax 25 mg at bedtime. 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 (3) Right leg pain: No evidence of DVT on venous Doppler Plan Home today, May 07, on Topamax Total Time Total Time Spent Total Time Spent (In Minutes): 45 minutes Discharge Plan Discharge Items Patient Disposition: Home - Self-Care Reason For Visit: STROKE-LIKE SYMPTOMS Discharge Diagnosis: Strokelike symptoms possibly due to headache Activity: Resume your previous activity Non-emergency contact: Primary Care Provider Call non-emergency contact if: your symptoms worsen Follow-up/Referrals: Дмитрий Shah MD [Primary Care Provider] - Diet: Regular and Heart Healthy Addtl Attending Provider Instructions: Topamax has been added at bedtime Pending Studies at Discharge: No Stand-Alone Forms: My [employer], Smoking Cessation Medications and DC Order Prescriptions: New topiramate [Topamax] 25 mg tablet 25 mg PO HS Qty: 30 0RF Continued bupropion HCl 200 mg tablet sustained-release 12 hr 200 mg PO DAILY Qty: 30 5RF senna-docusate sodium Tablet 1 tab PO BID magnesium oxide 420 mg tablet 420 mg PO DAILY Rx Instructions: Bedtime polyethylene glycol 3350 [Miralax] 17 gram/dose powder 17 g PO DAILY PRN (Reason: Constipation) (DME) Wheeled Walker Misc See Rx Instructions .Route Qty: 1 0RF Rx Instructions: wheeled walker with seat omeprazole 20 mg capsule,delayed release(DR/EC) 20 mg PO QAM finasteride 5 mg tablet 5 mg PO DAILY amlodipine 5 mg tablet 5 mg PO BID clopidogrel 75 mg Tablet 75 mg PO QAM metoprolol tartrate 50 mg Tablet 50 mg PO BID atorvastatin 40 mg tablet 40 mg PO .QHS Rx Instructions: Per pt's daughter - Pt has been complaining of leg pain and it might be because of the statins. However she couldn't confirm the allergy Statins listed. sertraline 100 mg Tablet 100 mg PO DAILY lisinopril 20 mg Tablet 20 mg PO BID hydralazine 25 mg Tablet 25 mg PO BID multivitamin Tablet 1 tab PO DAILY tamsulosin [Flomax] 0.4 mg capsule 0.4 mg PO HS Qty: 30 0RF Discharge Orders: Discharge Order (Routine); Ordered 05/07/23 Ordered By: Connor Mcclain Admission Data Admit Date/Time: 05/06/23 12:13 Attending Provider: Connor Mcclain Admit Provider: Chris Lepe Primary Care Provider: Дмитрий Shah Other Providers: Chris Lepe ; Nicholas Shi Coding Level of Care Code 83257 INP/OBS DISCH >30 MIN Diagnoses Stroke-like symptoms R29.90 Headache R51.9 Right leg pain M79.604
[2023-05-07] MEDS ORDERED: STROKE PATIENT DISCHARGE STA (11:51)
[2023-05-07] MEDS: ACETAMINOPHEN 325 MG TAB PO PRN (13:20)
== END 2023-05-07 14:00 | disposition home or self-care (01) ==
LOC: EDINP 08:23 → ED 08:23 → SUATTDRO 12:13 → 2S 16:02

== ENCOUNTER 2023-12-31 12:41 | Inpatient (IN) ==
--- OUTSIDE RECORDS SUMMARY | 2023-12-31 12:47 | External Medical Summary ---
Author Name UNSPECIFIED Address Unknown Organization [facility] History of Encounters Reason for Assessment: Discharge from [facility] where the patient been admitted: No inpatient facility admission Discharge Disposition: Patient remained in the community (without formal assistive services) Functional Assessment When Dyspneic: With moderate exerti on (e.g., while dressing, using commode or bedpan, walking distances less than 20 feet) Bowel Incontinence Frequency: Very rarel y or never has bowel incontinence Cognitive and Behavioral and Psychiatric Symptoms: None Current Ability: Bathing: Able to bathe in shower or tub with the intermittent assistance of another person: (a) for intermittent supervision or encouragement or reminders, OR (b) to get in and out of the shower or tub, OR (c) for washing difficult to reach areas. Current Ability: Ambulation: Requires us e of a two-handed device (e.g., walker or crutches) to walk alone on a level surface and/or requires human supervision or assistance to negotiate stairs or steps or uneven surfaces. Current: Management Of Oral Medications: Able to take medication(s) at the correct times if: (a) individual dosages are prepared in advance by another person; OR (b) another person develops a drug diary or chart
[2023-12-31 13:29] LABS: Basophils # (auto) 0.07 K/uL (0.00-0.20); Basophils % (auto) 1.1 %; Eosinophils # (auto) 0.49 K/uL (0.00-0.50); Eosinophils % (auto) 7.7 %; Hematocrit (blood only) 37.2 % (42.0-52.0); Hemoglobin 11.7 g/dl (14.0-18.0); Immature Granulocytes # (auto) 0.02 K/uL (0.01-0.20); Immature Granulocytes % (auto) 0.3 %; Lymphocytes # (auto) 1.66 K/uL (1.20-3.40); Lymphocytes % (auto) 26.1 %; Mean Corpuscular Hemoglobin 28.8 pg (25.0-34.0); Mean Corpuscular Hgb Conc 31.5 g/dL (32.0-36.0); Mean Corpuscular Volume 91.6 fL (80.0-100.0); Mean Platelet Volume 9.5 fL (9.4-12.4); Monocytes # (auto) 0.67 K/uL (0.11-0.59); Monocytes % (auto) 10.5 %; Neutrophils # (auto) 3.45 K/uL (1.40-6.50); Neutrophils % (auto) 54.3 %; Platelet Count 244 K/uL (130-400); RDW Coefficient of Variation 13.1 % (11.5-14.5); RDW Standard Deviation 43.9 fL (36.4-46.3); Red Blood Count 4.06 M/uL (4.70-6.10); White Blood Count 6.36 K/ul (4.8-10.8)
[2023-12-31 13:44] LABS: Alanine Aminotransferase 20 U/L (7-52); Albumin Globulin Ratio 1.3 (0.9-2); Albumin Level 4.1 gm/dl (3.4-5.0); Alkaline Phosphatase 87 U/L (34-104); Anion Gap 6 (3-11); Aspartate Aminotransferase 20 U/L (13-39); BUN Creatinine Ratio 10.3 (10-20); Bilirubin,Total 0.7 mg/dl (0.2-1.0); Blood Urea Nitrogen 13 mg/dl (6-23); C Reactive Protein 0.72 mg/dl (0-0.5); Calcium 9.7 mg/dl (8.6-10.3); Carbon Dioxide 25 mmol/L (21-32); Chloride 108 mmol/L (98-107); Est GFR (African American) 59.5 ml/min; Est GFR (Non-African American) 51.3 ml/min; Globulin 3.2 gm/dl (2.5-4.0); Glucose 114 mg/dl (70-99(Fasting)); Potassium 3.8 mmol/L (3.5-5.1); Sodium 139 mmol/L (136-145); Total Protein 7.3 gm/dl (6.0-8.3)
[2023-12-31] MEDS: cefTRIAXone SODIUM 2,000 MG/50 ML BAG IV STA (14:13)
--- NOTE | 2023-12-31 14:26 | Emergency Department Note ---
Impression & Plan Cellulitis of right leg ED Provider Note NAME: JOHNSON PANG AGE: 88 SEX: Male INFORMANT: Patient and family ED PROVIDER(S): Ron Perez MD CHIEF COMPLAINT: Right leg infection PLAN: Disposition: Admitted none Outpatient prescription management: none Referral: None MEDICAL DECISION MAKING: Patient presented because of right leg swelling and redness. Workup was initiated. Ultrasound imaging of the venous as well as arterial system ordered. His CBC and chemistry panels were unremarkable. Patient does have a mild elevation of CRP. Procalcitonin within normal limits. Patient was given IV Rocephin after cultures. Ultrasound imaging revealed no evidence of DVT. My concern is that the patient has been on cephalexin for 3 days and the cellulitis is progressing. It is now gone from the mid lower leg to the level of the knee overall but streaking into the mid thigh. Patient will benefit from IV antibiotics and inpatient treatment. Patient and family in agreement. Consultation was made with Dr. Lepe of the [facility] service. Patient was evaluated in the ER for further management. Care/management discussed with: content development manager Level of care consideration(s): After review of the information above and other included data, I feel the patient requires escalation of care to admission Triage Nursing notes: reviewed and agree them. Vital Signs: reviewed and remarkable for mild hypertension Additional History obtained from: none Chronic Medical/Social Conditions affecting care: Hypertension, history of Prior/ Outside/ External records reviewed: none Differential Diagnosis: Cellulitis, abscess, MRSA infection, DVT, necrotizing fasciitis, dermatitis, drug eruption, allergic reaction, as well as other pathologies. Diagnostics, independently interpreted by me: ECG: none Cardiac Monitoring: none Medical decision rules: none Imaging studies: I refer you to the EMR for further details. HPI: 88 year old Male arrives for evaluation of right leg pain and swelling. Started last week and is getting worse. [facility]. Patient has some mild shortness of breath with activity and some mild weakness as well. He states that is chronic. Patient also notes chronic constipation. Patient also notes that he falls very frequently sometimes upwards of 16 times a day. He denies any injury from any of the falls. Patient does live with family. Patient rates his pain as a 3 out of 10. Pt denies LOC, headache, fevers, chills, diaphoresis, visual changes, neck pain, chest pain, breathing difficulties, nausea, vomiting, abdominal pain, back pain, melena, hematochezia, urinary symptoms, numbness, lymphadenopathy, rash, or other complaints. PAST MEDICAL HISTORY: See Below, CVA, hypertension PAST SURGICAL HISTORY: See Below, SOCIAL HISTORY: See Below, vet HOME MEDICATIONS: See Below ALLERGIES: See Below VITALS: See Below PHYSICAL EXAMINATION: GENERAL: Awake, alert, nontoxic-appearing, in no distress HENT: Normocephalic, atraumatic. Oropharynx unremarkable. EYES: Normal conjunctiva. Sclera non-icteric. NECK: Inspection normal. Non-tender. Supple. No nuchal rigidity. FROM. No masses. RESPIRATORY: Clear to auscultation. No wheezes. No rales. Normal respiratory effort. CARDIAC: Normal rate. Normal rhythm. No murmurs. No rubs. Extremities warm and well perfused. Pulses equal. No JVD. GI: Soft, mild distended. No tenderness to palpation. No rebound or guarding. No masses. RECTAL: Deferred. MUSCULOSKELETAL: Atraumatic. Chest examination reveals no tenderness. The back is symmetrical on inspection without obvious abnormality. There is no CVA tenderness to palpation. No joint edema. LOWER EXTREMITIES: Erythematous discoloration of the right lower extremity with tenderness to palpation. This does extend up to the level of the knee circumferentially but also there is streaking above the knee immediately to the mid thigh NEURO: Normal sensorium. No sensory or motor deficits noted. SKIN: No rash or jaundice noted. PROCEDURES: none CRITICAL CARE: none OBSERVATION NOTE: none Past Med/Surg History Medical History Gait abnormality DVT prophylaxis Screening due Congestive heart failure Osteoarthritis GERD (gastroesophageal reflux disease) BPH (benign prostatic hyperplasia) Borderline diabetes mellitus Depression Anxiety Poor historian spoke w/ pt's (gilma) Stroke x3 - last episode 4-5 years ago - [facility] - does not follow w/ neurologist - w/ rt sided weakness to rle, some garbled speech - cause? 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 arevalo Hypertension Hyperlipidemia Sleep apnea bipap Right upper lobe pneumonia (2014) Surgical History History of incision and drainage (08/05/21) Incision and Drainage left Perirectal Abscess Dr. Sam 08/05/2021 History of carpal tunnel surgery of right wrist History of bilateral cataract extraction History of surgery I&D of perirectal abscess History of tooth extraction History of tonsillectomy History of back surgery History of herniorrhaphy History of esophagogastroduodenoscopy (EGD) History of colonoscopy History of coronary artery bypass graft ? vessels [place] [facility] [place] - follows w/ dr. arevalo History of cardiac cath 2006 - [facility] [place] CABG Hx of CABG (2006) Family History Sister Cancer Other No family history of adverse response to anesthesia Denies family history of Ovarian cancer Prostate cancer Breast cancer Colorectal cancer Social History Smoking Status: Former smoker Cigarettes Per Day: quit in 1958; Second Hand Exposure: No; Do You Dip or Chew Tobacco: No; Tobacco Cessation Education Requested by Patient: No Hx Alcohol Use: Yes Alcohol type: wine and hard liquor Hx Substance Use: No Preferred Language: Azeri Communication Ability: Effective Hearing Ability: Use of Hearing Aid Tnt Powder Worker Required: No Beliefs That Will Affect Care: None marital status: Current Living Situation: Family Current Living Situation Comment: Daughter and current occupational status: retired How many Children do You have: 1 Other Information That Helps Us Care for You: No Feels Safe at Home: Yes Safety Concerns: Feels Safe At This Time Childhood Exposure to Second-Hand Smoke: Yes Diet: low salt caffeine: No Dental Care, Regularly: Yes Physical Activity Frequency: Does not Exercise Seatbelt Use: always Assistive Devices: CPAP, Glasses, Hearing Aid - Bilateral and Walker Allergies Allergies Allergy/AdvReac Type Severity Reaction Status Date / Time latex Allergy Intermediate itchiness Verified 12/31/23 17:26 and rash Sulfa (Sulfonamide Allergy Intermediate Rash Verified 12/31/23 17:26 Antibiotics) Hzrvvaf-[id number]-HvF Reductase Allergy Unknown UNKNOWN, Verified 12/31/23 17:26 Inhibitor PER [Igllqlf-Ugh-Xen Reductase PASQURELLO Inhibitor] carbidopa [From Sinemet] AdvReac Severe legs shake Verified 12/31/23 17:27 levodopa [From Sinemet] AdvReac Severe legs shake Verified 12/31/23 17:27 chlorthalidone AdvReac Intermediate Leg pain, Verified 12/31/23 17:26 low sodium, weight loss ibuprofen AdvReac Intermediate HTN Verified 12/31/23 17:26 Home Meds Home Medications Medication Instructions Recorded Confirmed clopidogrel 75 mg tablet 75 mg PO QAM 08/15/18 12/31/23 metoprolol tartrate 50 mg tablet 50 mg PO BID 08/15/18 12/31/23 finasteride 5 mg tablet 5 mg PO HS 04/03/19 12/31/23 sertraline 100 mg tablet 100 mg PO HS 04/29/21 12/31/23 omeprazole 20 mg capsule,delayed 20 mg PO QAM 06/08/21 12/31/23 release multivitamin 1 tab PO DAILY 08/04/21 12/31/23 atorvastatin 40 mg tablet 40 mg PO HS 06/08/22 12/31/23 magnesium oxide 420 mg tablet 420 mg PO HS 10/31/22 12/31/23 amlodipine 5 mg tablet 5 mg PO BID 11/10/22 12/31/23 lisinopril 20 mg tablet 20 mg PO BID 05/06/23 12/31/23 docusate sodium 50 mg capsule 50 mg PO BID 11/14/23 12/31/23 topiramate 100 mg tablet 100 mg PO HS 11/14/23 12/31/23 hydralazine 50 mg tablet 50 mg PO BID 12/31/23 12/31/23 Previous Rx's Medication Instructions Recorded bupropion HCl 200 mg tablet,12 hr 200 mg PO DAILY #30 ea 09/16/19 sustained-release tamsulosin 0.4 mg capsule (Flomax) 0.4 mg PO HS #30 caps 08/06/21 Results & Data (ED) Vital Signs Vital Signs - 24 hr 12/31/23 12:43 12/31/23 12:56 12/31/23 13:00 Temperature 36.5 C Temperature Source Temporal Artery Scan Pulse Rate 61 61 59 L Pulse Rate from SpO2 Sensor Respiratory Rate 18 20 24 Respiratory Effort / Characteristics Non-Labored Respiratory Depth Normal Blood Pressure 159/73 H Blood Pressure Mean 101 Pulse Oximetry 99 Oxygen Delivery Method Sepsis Recent Fever Within 48 Hours No Sepsis New/Unexplained Change in Mental Status No Sepsis Action Taken by Nursing No Action Required 12/31/23 13:00 12/31/23 13:30 12/31/23 13:30 Temperature Temperature Source Pulse Rate 56 L Pulse Rate from SpO2 Sensor 57 L Respiratory Rate 20 Respiratory Effort / Characteristics Respiratory Depth Blood Pressure 139/64 142/66 H Blood Pressure Mean 74 90 Pulse Oximetry 98 Oxygen Delivery Method Sepsis Recent Fever Within 48 Hours Sepsis New/Unexplained Change in Mental Status Sepsis Action Taken by Nursing 12/31/23 14:00 12/31/23 14:00 12/31/23 14:00 Temperature Temperature Source Pulse Rate 55 L Pulse Rate from SpO2 Sensor 55 L Respiratory Rate 19 Respiratory Effort / Characteristics Respiratory Depth Blood Pressure 119/57 L 119/57 L Blood Pressure Mean 83 83 Pulse Oximetry 97 Oxygen Delivery Method Sepsis Recent Fever Within 48 Hours Sepsis New/Unexplained Change in Mental Status Sepsis Action Taken by Nursing 12/31/23 14:30 12/31/23 14:30 12/31/23 14:30 Temperature Temperature Source Pulse Rate 56 L Pulse Rate from SpO2 Sensor 56 L Respiratory Rate 25 H Respiratory Effort / Characteristics Respiratory Depth Blood Pressure 133/66 133/66 Blood Pressure Mean 101 101 Pulse Oximetry 98 Oxygen Delivery Method Room Air Sepsis Recent Fever Within 48 Hours Sepsis New/Unexplained Change in Mental Status Sepsis Action Taken by Nursing 12/31/23 15:27 12/31/23 16:00 12/31/23 16:30 Temperature Temperature Source Pulse Rate 60 55 L 56 L Pulse Rate from SpO2 Sensor 60 55 L 56 L Respiratory Rate 19 16 18 Respiratory Effort / Characteristics Respiratory Depth Blood Pressure 185/89 H 181/78 H 178/91 H Blood Pressure Mean 121 112 120 Pulse Oximetry 97 96 97 Oxygen Delivery Method Room Air Room Air Room Air Sepsis Recent Fever Within 48 Hours Sepsis New/Unexplained Change in Mental Status Sepsis Action Taken by Nursing Laboratory Data 12/31/23 13:01 12/31/23 13:01 Lab Results 12/31/23 Range/Units 13:01 WBC 6.36 (4.8-10.8) K/ul RBC 4.06 L (4.70-6.10) M/uL Hgb 11.7 L (14.0-18.0) g/dl Hct 37.2 L (42.0-52.0) % MCV 91.6 (80.0-100.0) fL MCH 28.8 (25.0-34.0) pg MCHC 31.5 L (32.0-36.0) g/dL RDW Std Deviation 43.9 (36.4-46.3) fL RDW Coeff of Marie 13.1 (11.5-14.5) % Plt Count 244 (130-400) K/uL MPV 9.5 (9.4-12.4) fL Immature Gran % (Auto) 0.3 % Neut % (Auto) 54.3 % Lymph % (Auto) 26.1 % [place] % (Auto) 10.5 % Eos % (Auto) 7.7 % Baso % (Auto) 1.1 % Neut # (Auto) 3.45 (1.40-6.50) K/uL Lymph # (Auto) 1.66 (1.20-3.40) K/uL [place] # (Auto) 0.67 H (0.11-0.59) K/uL Eos # (Auto) 0.49 (0.00-0.50) K/uL Baso # (Auto) 0.07 (0.00-0.20) K/uL Immature Gran # (Auto) 0.02 (0.01-0.20) K/uL Sodium 139 (136-145) mmol/L Potassium 3.8 (3.5-5.1) mmol/L Chloride 108 H (98-107) mmol/L Carbon Dioxide 25 (21-32) mmol/L Anion Gap 6 (3-11) BUN 13 (6-23) mg/dl Creatinine 1.26 (0.6-1.4) mg/dl Est Cr Clr Drug Dosing Not Reportable Est GFR ( Amer) 59.5 ml/min Est GFR (Non-Af Amer) 51.3 ml/min BUN/Creatinine Ratio 10.3 (10-20) Glucose 114 H (70-99(Fasting)) mg/dl Calcium 9.7 (8.6-10.3) mg/dl Total Bilirubin 0.7 (0.2-1.0) mg/dl AST 20 (13-39) U/L ALT 20 (7-52) U/L Alkaline Phosphatase 87 (34-104) U/L C-Reactive Protein 0.72 H (0-0.5) mg/dl Total Protein 7.3 (6.0-8.3) gm/dl Albumin 4.1 (3.4-5.0) gm/dl Globulin 3.2 (2.5-4.0) gm/dl Albumin/Globulin Ratio 1.3 (0.9-2) Procalcitonin 0.05 (0-0.5) ng/ml Administered Medications Amlodipine Besylate (Amlodipine Besylate 5 Mg Tab) 5 mg PO BID MARKEL Stop: 01/30/24 20:59 Last Admin: 12/31/23 20:11 Dose: 5 mg Documented By: AYESHA Atorvastatin Calcium (Atorvastatin 40 Mg Tab) 40 mg PO MARKEL Stop: 01/30/24 20:59 Last Admin: 12/31/23 20:12 Dose: 40 mg Documented By: AYESHA Docusate Sodium (Docusate Sodium Syrup 100 Mg/10 Ml Udc) 50 mg PO BID MARKEL Stop: 01/30/24 20:59 Last Admin: 12/31/23 20:12 Dose: 50 mg Documented By: AYESHA Finasteride (Finasteride 5 Mg Tab) 5 mg PO HS MARKEL Stop: 01/30/24 20:59 Last Admin: 12/31/23 20:12 Dose: 5 mg Documented By: AYESHA Hydralazine HCl (Hydralazine Tab 50 Mg Tab) 50 mg PO BID MARKEL Stop: 01/30/24 20:59 Last Admin: 12/31/23 20:12 Dose: 50 mg Documented By: AYESHA Lisinopril (Lisinopril 20 Mg Tab) 20 mg PO BID MARKEL Stop: 01/30/24 20:59 Last Admin: 12/31/23 20:12 Dose: 20 mg Documented By: AYESHA Magnesium Oxide (Magnesium Oxide 400 Mg Tab) 400 mg PO HS MARKEL Stop: 01/30/24 20:59 Last Admin: 12/31/23 20:12 Dose: 400 mg Documented By: AYESHA Metoprolol Tartrate (Metoprolol Tartrate 50 Mg Tab) 50 mg PO BID MARKEL Stop: 01/30/24 20:59 Last Admin: 12/31/23 20:12 Dose: 50 mg Documented By: AYESHA Sertraline HCl (Sertraline Hcl 100 Mg Tablet) 100 mg PO MARKEL Stop: 01/30/24 20:59 Last Admin: 12/31/23 20:12 Dose: 100 mg Documented By: AYESHA Tamsulosin HCl (Tamsulosin Hcl 0.4 Mg Cap) 0.4 mg PO HS MARKEL Stop: 01/30/24 20:59 Last Admin: 12/31/23 20:12 Dose: 0.4 mg Documented By: AYESHA Topiramate (Topiramate 100 Mg Tab) 100 mg PO HS MARKEL Stop: 01/30/24 20:59 Last Admin: 12/31/23 20:12 Dose: 100 mg Documented By: AYESHA Discontinued Medications Ceftriaxone Sodium (Rocephin) 2,000 mg in 50 mls @ 100 mls/hr IV NOW STA Stop: 12/31/23 13:38 Last Infusion: 12/31/23 14:43 Dose: Infused Documented By: Admin: 12/31/23 14:13 Dose: 100 mls/hr Documented By: TAHIR Imaging Data Radiologist's Impression: Duplex Scan Lower Extremity Artery 12/31/23 13:09 RIGHT LOWER EXTREMITY ARTERIAL DOPPLER ULTRASOUND CLINICAL HISTORY: swelling, redness, cyanosis COMPARISON STUDY: Right lower extremity arterial Doppler ultrasound May 07, 2023. TECHNIQUE: Grayscale, color and duplex Doppler sonography of the arterial system of the right lower extremity was performed. FINDINGS: Mild calcified atherosclerotic plaque within the right lower extremity is noted. No elevated velocities were identified. Biphasic flow was noted within the right common femoral and superficial femoral arteries. There was monophasic flow within the right popliteal, posterior tibial, anterior tibial, peroneal and dorsalis pedis vessels. The vessels were patent. IMPRESSION: 1. Mild atherosclerotic plaque within the right lower extremity. No sonographic evidence for a hemodynamically significant stenosis. 2. Monophasic flow within the right calf vessels. ACT 112: Negative or not required by law. Electronically signed by: Cm Soto M.D. 12/31/2023 3:35 PM Venous Doppler Study 12/31/23 13:09 RIGHT LOWER EXTREMITY VENOUS DOPPLER CLINICAL HISTORY: swelling, redness COMPARISON STUDY: Right lower extremity venous Doppler ultrasound May 07, 2023. TECHNIQUE: Sonography of the deep venous system of the right lower extremity was performed. Compression and augmentation were evaluated. FINDINGS: The right common femoral, superficial femoral and popliteal veins were compressible. Augmentation was normal. Flow was shown within the deep calf vessels. IMPRESSION: No evidence of deep venous thrombus within the right lower extremity. ACT 112: Negative or not required by law. Electronically signed by: Cm Soto M.D. 12/31/2023 3:31 PM Discharge Plan Visit Data Chief Complaint: Leg Injury/Pain Stated Complaint: RIGH LEG IS RED AND FOOT IS PURPLE ED Provider: Ron Perez Discharge Problem: Cellulitis of right leg Patient Disposition: Home - Self-Care Discharge Instructions Interventions: ED Discharge Assessment Last Done: 12/31/23 17:00
--- NOTE | 2023-12-31 15:33 | Ultrasound Report ---
RIGHT LOWER EXTREMITY VENOUS DOPPLER CLINICAL HISTORY: swelling, redness COMPARISON STUDY: Right lower extremity venous Doppler ultrasound May 07, 2023. TECHNIQUE: Sonography of the deep venous system of the right lower extremity was performed. Compress ion and augmentation were evaluated. FINDINGS: The right common femoral, superficial femoral and popliteal veins were compressible. Augme ntation was normal. Flow was shown within the deep calf vessels. IMPRESSION: No evidence of deep venous thrombus within the right lower extremity. ACT 112: Negative or not required by law. Electronically signed by: Cm Soto M.D. 12/31/2023 3:31 PM
--- NOTE | 2023-12-31 15:38 | Ultrasound Report ---
RIGHT LOWER EXTREMITY ARTERIAL DOPPLER ULTRASOUND CLINICAL HISTORY: swelling, redness, cyanosis COMPARISON STUDY: Right lower extremity arterial Doppler ultrasound May 07, 2023. TECHNIQUE: Grayscale, color and duplex Doppler sonography of the arterial system of the right lower e xtremity was performed. FINDINGS: Mild calcified atherosclerotic plaque within the right lower extremity is noted. No elevate d velocities were identified. Biphasic flow was noted within the right common femoral and superficial femoral arteries. There was monophasic flow within the right popliteal, posterior tibial, anterior t ibial, peroneal and dorsalis pedis vessels. The vessels were patent. IMPRESSION: 1. Mild atherosclerotic plaque within the right lower extremity. No sonographic evidence for a hemody namically significant stenosis. 2. Monophasic flow within the right calf vessels. ACT 112: Negative or not required by law. Electronically signed by: Cm Soto M.D. 12/31/2023 3:35 PM
--- NOTE | 2023-12-31 16:27 | History & Physical Report ---
Date of Service December 31, 2023 Assessment & Plan (1) Cellulitis of right leg: Plan: Failed outpatient PO Keflex IV ceftriaxone, if getting worse overnight (see pictures in H&P) consider MRSA coverage despite MRSA nasal swab negative but given not septic deferred this on admission Follow up blood cultures (2) Coronary artery disease: Plan: Continue clopidogrel, metoprolol, lisinopril, atorvastain (3) Depression: Plan: Continue sertraline (4) BPH (benign prostatic hyperplasia): Plan: Continue tamsulosin and finasteride (5) GERD (gastroesophageal reflux disease): Plan: Switch omeprazole to pantoprazole per hospital formulary (6) Hypertension: Plan: Continue metoprolol, lisinopril, hydralazine (7) History of coronary artery bypass graft: (8) H/O: stroke with residual effects: Plan: residual right sided weakness Plan VTE Prophylaxis - Lovenox 40mg SQ daily Diet - heart healthy, low Na Disposition - observation to med/surg Admission and Anticipated Discharge Date Admission Date: December 31, 2023 History of Present Illness Chief Complaint: Right leg erythema and swelling Primary Care Provider: Aleksandar Musa MD Samson Romero is an 88 year old male who present so the ER with lower leg erythema and swelling. He reports this may have been ongoing for the last 6 weeks although he didn't tell anyone about it. He has a history of stroke and right sided weakness with frequent falls. He fell on Monday and his daughter saw him on this occasion and noticed his leg for the first time [facility] Kef[facility]. Despite this the redness has continued to spread up his leg beyond the drawn markings above his knee posteriorly. Given it has continued to get worse she brought him to the ER today. No fever or chills. He reports having multiple wounds on his legs chronically. His balance is worse with the current infection. Allergies Allergy/AdvReac Type Severity Reaction Status Date / Time latex Allergy Intermediate itchiness Verified 12/31/23 17:26 and rash Sulfa (Sulfonamide Allergy Intermediate Rash Verified 12/31/23 17:26 Antibiotics) [id number] Reductase Allergy Unknown UNKNOWN, Verified 12/31/23 17:26 Inhibitor PER [[id number]-Cxd Reductase PASQURELLO Inhibitor] carbidopa [From Sinemet] AdvReac Severe legs shake Verified 12/31/23 17:27 levodopa [From Sinemet] AdvReac Severe legs shake Verified 12/31/23 17:27 chlorthalidone AdvReac Intermediate Leg pain, Verified 12/31/23 17:26 low sodium, weight loss ibuprofen AdvReac Intermediate HTN Verified 12/31/23 17:26 Home Medications Medication Instructions Recorded Confirmed Type clopidogrel 75 mg tablet 75 mg PO QAM 08/15/18 12/31/23 History metoprolol tartrate 50 mg tablet 50 mg PO BID 08/15/18 12/31/23 History finasteride 5 mg tablet 5 mg PO HS 04/03/19 12/31/23 History bupropion HCl 200 mg tablet,12 hr 200 mg PO DAILY #30 ea 09/16/19 12/31/23 Rx sustained-release sertraline 100 mg tablet 100 mg PO HS 04/29/21 12/31/23 History omeprazole 20 mg capsule,delayed 20 mg PO QAM 06/08/21 12/31/23 History release multivitamin 1 tab PO DAILY 08/04/21 12/31/23 History tamsulosin 0.4 mg capsule (Flomax) 0.4 mg PO HS #30 caps 08/06/21 12/31/23 Rx atorvastatin 40 mg tablet 40 mg PO HS 06/08/22 12/31/23 History magnesium oxide 420 mg tablet 420 mg PO HS 10/31/22 12/31/23 History amlodipine 5 mg tablet 5 mg PO BID 11/10/22 12/31/23 History lisinopril 20 mg tablet 20 mg PO BID 05/06/23 12/31/23 History docusate sodium 50 mg capsule 50 mg PO BID 11/14/23 12/31/23 History topiramate 100 mg tablet 100 mg PO HS 11/14/23 12/31/23 History hydralazine 50 mg tablet 50 mg PO BID 12/31/23 12/31/23 History Past Med/Surg History Medical History Gait abnormality DVT prophylaxis Screening due Congestive heart failure Osteoarthritis GERD (gastroesophageal reflux disease) BPH (benign prostatic hyperplasia) Borderline diabetes mellitus Depression Anxiety Poor historian spoke w/ pt's (gilma) Stroke x3 - last episode 4-5 years ago - [facility] - does not follow w/ neurologist - w/ rt sided weakness to rle, some garbled speech - cause? Myocardial Infarction 2006 - [employer] --> C --> CABG - follows w/ dr. arevalo Hypertension Hyperlipidemia Sleep apnea bipap Right upper lobe pneumonia (2014) Surgical History History of incision and drainage (08/05/21) Incision and Drainage left Perirectal Abscess Dr. Sam 08/05/2021 History of carpal tunnel surgery of right wrist History of bilateral cataract extraction History of surgery I&D of perirectal abscess History of tooth extraction History of tonsillectomy History of back surgery History of herniorrhaphy History of esophagogastroduodenoscopy (EGD) History of colonoscopy History of coronary artery bypass graft ? vessels [place] [facility] [place] - follows w/ dr. arevalo History of cardiac cath 2006 [place] [facility] [place] CABG Hx of CABG (2006) Family History Sister Cancer Other No family history of adverse response to anesthesia Denies family history of Ovarian cancer Prostate cancer Breast cancer Colorectal cancer Social History Smoking Status: Former smoker Cigarettes Per Day: quit in 1958; Second Hand Exposure: No; Do You Dip or Chew Tobacco: No; Tobacco Cessation Education Requested by Patient: No Hx Alcohol Use: Yes Alcohol type: wine and hard liquor Hx Substance Use: No Preferred Language: Monegasque Communication Ability: Effective Hearing Ability: Use of Hearing Aid Senior Support Analyst Required: No Beliefs That Will Affect Care: None marital status: Current Living Situation: Family Current Living Situation Comment: Daughter and current occupational status: retired How many Children do You have: 1 Other Information That Helps Us Care for You: No Feels Safe at Home: Yes Safety Concerns: Feels Safe At This Time Childhood Exposure to Second-Hand Smoke: Yes Diet: low salt caffeine: No Dental Care, Regularly: Yes Physical Activity Frequency: Does not Exercise Seatbelt Use: always Assistive Devices: CPAP, Glasses, Hearing Aid - Bilateral and Walker Review of Systems 2 Review of Systems: All systems reviewed & are unremarkable except as noted in HPI & below Physical Exam 2 Constitutional: WD/WN, vitals as above Eyes: + anicteric sclerae; normal pupil size ENMT: external ear and nose normal, oropharynx normal Respiratory: normal respiratory effort, lungs clear to auscultation Cardiovascular: Rate/Rhythm: regular rate and regular rhythm Heart Sounds: no murmur Extremities: normal capillary refill, + calf tenderness (right) and + pedal edema (2+ right, 1+ left) Gastrointestinal (Abdomen): normal bowel sounds, soft, nontender, no hepatosplenomegaly Skin: Neurologic: moves all extremities (right lower extremity 4/5 (unclear from current swelling or prior stroke)) and awake; not confused Psychiatric: A+Ox3, euthymic affect Results & Data Results & Data Vital Signs (Past 12 Hours) Vital Signs Temp Pulse Resp BP Pulse Ox O2 Del Method 12/31/23 16:00 55 L 16 181/78 H 96 Room Air 12/31/23 15:27 60 19 185/89 H 97 Room Air 12/31/23 14:30 56 L 25 H 98 Room Air 12/31/23 14:30 133/66 12/31/23 14:30 133/66 12/31/23 14:00 55 L 19 97 12/31/23 14:00 119/57 L 12/31/23 14:00 119/57 L 12/31/23 13:30 56 L 20 98 12/31/23 13:30 142/66 H 12/31/23 13:00 139/64 12/31/23 13:00 59 L 24 12/31/23 12:56 61 20 12/31/23 12:43 36.5 C 61 18 159/73 H 99 Laboratory Results Abnormal lab results 12/31/23 Range/Units 13:01 RBC 4.06 L (4.70-6.10) M/uL Hgb 11.7 L (14.0-18.0) g/dl Hct 37.2 L (42.0-52.0) % MCHC 31.5 L (32.0-36.0) g/dL [place] # (Auto) 0.67 H (0.11-0.59) K/uL Chloride 108 H (98-107) mmol/L Glucose 114 H (70-99(Fasting)) mg/dl C-Reactive Protein 0.72 H (0-0.5) mg/dl Diagnostic Findings RIGHT LOWER EXTREMITY ARTERIAL DOPPLER ULTRASOUND CLINICAL HISTORY: swelling, redness, cyanosis COMPARISON STUDY: Right lower extremity arterial Doppler ultrasound May 07, 2023. TECHNIQUE: Grayscale, color and duplex Doppler sonography of the arterial system of the right lower extremity was performed. FINDINGS: Mild calcified atherosclerotic plaque within the right lower extremity is noted. No elevated velocities were identified. Biphasic flow was noted within the right common femoral and superficial femoral arteries. There was monophasic flow within the right popliteal, posterior tibial, anterior tibial, peroneal and dorsalis pedis vessels. The vessels were patent. IMPRESSION: 1. Mild atherosclerotic plaque within the right lower extremity. No sonographic evidence for a hemodynamically significant stenosis. 2. Monophasic flow within the right calf vessels. RIGHT LOWER EXTREMITY VENOUS DOPPLER CLINICAL HISTORY: swelling, redness COMPARISON STUDY: Right lower extremity venous Doppler ultrasound May 07, 2023. TECHNIQUE: Sonography of the deep venous system of the right lower extremity was performed. Compression and augmentation were evaluated. FINDINGS: The right common femoral, superficial femoral and popliteal veins were compressible. Augmentation was normal. Flow was shown within the deep calf vessels. IMPRESSION: No evidence of deep venous thrombus within the right lower extremity. Medications Administered ER Medications Given: Ceftriaxone 2g IV Code Status & VTE Plan Code Status No resuscitation in cardiac arrest, otherwise all other measures including intubation and artificial ventilation outside of a cardiac arrest VTE Prophylaxis Plan VTE Prophylaxis will be ordered: Yes PG Care Time/CCT Total # of Minutes Spent Total Time Spent with Patient: Total time spent is greater than 50% in coordination of care (as documented) at patient's floor/unit and/or counseling patient: Coding Level of Care Code 05342 INT INP/OBS CARE 2/55MIN Diagnoses Cellulitis of right leg L03.115 Coronary artery disease I25.10 Depression F32.9 BPH (benign prostatic hyperplasia) N40.0 GERD (gastroesophageal reflux disease) K21.9 Hypertension I10 History of coronary artery bypass graft Z95.1 H/O: stroke with residual effects I69.30
[2023-12-31] MEDS ORDERED: ACETAMINOPHEN 325 MG TAB PO PRN (18:38)
[2023-12-31] MEDS: amLODIPine BESYLATE 5 MG TAB PO SCH (20:11)
[2023-12-31] MEDS: lisinopril 20 MG TAB PO SCH (20:12)
[2023-12-31] MEDS: DOCUSATE SODIUM SYRUP 100 MG/10 ML UDC PO SCH (20:12)
[2023-12-31] MEDS: FINASTERIDE 5 MG TAB PO SCH (20:12)
[2023-12-31] MEDS: TOPIRAMATE 100 MG TAB PO SCH (20:12)
[2023-12-31] MEDS: SERTRALINE HCL 100 MG TABLET PO SCH (20:12)
[2023-12-31] MEDS: TAMSULOSIN HCL 0.4 MG CAP PO SCH (20:12)
[2023-12-31] MEDS: ATORVASTATIN 40 MG TAB PO SCH (20:12)
[2023-12-31] MEDS: METOPROLOL TARTRATE 50 MG TAB PO SCH (20:12)
[2023-12-31] MEDS: MAGNESIUM OXIDE 400 MG TAB PO SCH (20:12)
[2023-12-31] MEDS: hydrALAZINE TAB 50 MG TAB PO SCH (20:12)
[2023-12-31] MEDS: ENOXAPARIN INJ 40 MG/0.4 ML SYR SQ SCH (23:47)
[2024-01-01 06:30] LABS: Basophils # (auto) 0.06 K/uL (0.00-0.20); Basophils % (auto) 0.9 %; Eosinophils # (auto) 0.47 K/uL (0.00-0.50); Eosinophils % (auto) 7.2 %; Hematocrit (blood only) 37.9 % (42.0-52.0); Hemoglobin 11.9 g/dl (14.0-18.0); Immature Granulocytes # (auto) 0.08 K/uL (0.01-0.20); Immature Granulocytes % (auto) 1.2 %; Lymphocytes # (auto) 1.67 K/uL (1.20-3.40); Lymphocytes % (auto) 25.6 %; Mean Corpuscular Hemoglobin 28.7 pg (25.0-34.0); Mean Corpuscular Hgb Conc 31.4 g/dL (32.0-36.0); Mean Corpuscular Volume 91.5 fL (80.0-100.0); Mean Platelet Volume 9.3 fL (9.4-12.4); Monocytes # (auto) 0.71 K/uL (0.11-0.59); Monocytes % (auto) 10.9 %; Neutrophils # (auto) 3.53 K/uL (1.40-6.50); Neutrophils % (auto) 54.2 %; Platelet Count 227 K/uL (130-400); RDW Coefficient of Variation 13.1 % (11.5-14.5); RDW Standard Deviation 44.2 fL (36.4-46.3); Red Blood Count 4.14 M/uL (4.70-6.10); White Blood Count 6.52 K/ul (4.8-10.8)
[2024-01-01 07:15] LABS: BUN Creatinine Ratio 10.7 (10-20); Calcium 9.7 mg/dl (8.6-10.3); Creatinine Clr Calc Pharmacy 48.4 ml/min; Est GFR (African American) 62.5 ml/min; Est GFR (Non-African American) 53.9 ml/min; Potassium 3.9 mmol/L (3.5-5.1)
[2024-01-01] MEDS: buPROPion SR 100 MG TABCR PO SCH (08:13)
[2024-01-01] MEDS: CLOPIDOGREL BISULFATE 75 MG TAB PO SCH (08:13)
[2024-01-01] MEDS: PANTOprazole 40 MG TAB PO SCH (08:14)
--- NOTE | 2024-01-01 12:05 | Hospitalist Progress Note ---
Date of Service January 01, 2024 Assessment & Plan (1) Cellulitis of right leg: Plan: Failed outpatient PO Keflex Continue IV ceftriaxone (first day 12/30), MRSA negative Blood cultures: pending PT/OT (2) Coronary artery disease: Plan: hx of CABG Continue clopidogrel, metoprolol, lisinopril, atorvastain (3) Depression: Plan: Continue sertraline (4) BPH (benign prostatic hyperplasia): Plan: Continue tamsulosin and finasteride (5) GERD (gastroesophageal reflux disease): Plan: Switch omeprazole to pantoprazole per hospital formulary (6) Hypertension: Plan: Continue metoprolol, lisinopril, hydralazine (7) H/O: stroke with residual effects: Plan: residual right sided weakness Plan VTE Prophylaxis - Lovenox 40mg SQ daily Disposition - continued inpatient stay Daughter updated by phone Admission and Anticipated Discharge Date Admission Date: December 31, 2023 Subjective Patient resting in bed, does state that he feels better today - the burning in his legs is no longer there. reports good family support at home Needing to have a bowel movement - uses miralax and corn at home. Otherwise, no acute complaints. Review of Systems Review of Systems: All systems reviewed & are unremarkable except as noted in Subjective Physical Exam Physical Exam: General: NAD, sitting up in bed, VS as above HEENT: poor dentition, missing multiple teeth Resp: normal respiratory effort, lungs clear to auscultation CV: RRR, no murmur, Extremities: erythema to b/l LE, right significantly worse than left. Redness exceeding lines drawn on 12/29 but appears improved from picture in H&P, no warmth. Neuro: A&O x3, Results & Data Results & Data Vital Signs (Past 12 Hours) Vital Signs Temp Pulse Resp BP Pulse Ox O2 Del Method 01/01/24 08:11 36.5 C 59 L 16 135/71 96 Room Air Laboratory Results CBC and chemistry reviewed PG Care Time/CCT Total # of Minutes Spent Total Time Spent with Patient: Total time spent is greater than 50% in coordination of care (as documented) at patient's floor/unit and/or counseling patient: Coding Level of Care Code 80208 SUB INP/OBS CARE 2/35MIN Diagnoses Cellulitis of right leg L03.115 Coronary artery disease I25.10 Depression F32.9 BPH (benign prostatic hyperplasia) N40.0 GERD (gastroesophageal reflux disease) K21.9 Hypertension I10 H/O: stroke with residual effects I69.30
[2024-01-01] MEDS: POLYETHYLENE (MIRALAX) 17 GM PACK PO PRN (13:15)
[2024-01-01] MEDS: cefTRIAXone SODIUM 2,000 MG in DEXTROSE 5 % MINI-B 50 ML IV SCH (14:44)
[2024-01-02 08:09] LABS: Basophils # (auto) 0.06 K/uL (0.00-0.20); Basophils % (auto) 0.9 %; Eosinophils # (auto) 0.42 K/uL (0.00-0.50); Eosinophils % (auto) 6.4 %; Hemoglobin 12.3 g/dl (14.0-18.0); Immature Granulocytes # (auto) 0.03 K/uL (0.01-0.20); Immature Granulocytes % (auto) 0.5 %; Lymphocytes # (auto) 1.39 K/uL (1.20-3.40); Mean Corpuscular Hemoglobin 28.7 pg (25.0-34.0); Mean Corpuscular Hgb Conc 31.5 g/dL (32.0-36.0); Mean Corpuscular Volume 90.9 fL (80.0-100.0); Mean Platelet Volume 9.4 fL (9.4-12.4); Monocytes # (auto) 0.68 K/uL (0.11-0.59); Monocytes % (auto) 10.3 %; Neutrophils # (auto) 4.03 K/uL (1.40-6.50); Neutrophils % (auto) 60.9 %; Platelet Count 269 K/uL (130-400); RDW Coefficient of Variation 13.2 % (11.5-14.5); RDW Standard Deviation 43.5 fL (36.4-46.3); Red Blood Count 4.29 M/uL (4.70-6.10); White Blood Count 6.61 K/ul (4.8-10.8)
--- NOTE | 2024-01-02 16:20 | Hospitalist Progress Note ---
Date of Service January 02, 2024 Assessment & Plan (1) Cellulitis of right leg: Plan: Failed outpatient PO Keflex Right lower extremity arterial Doppler: Mild plaque, no significant stenosis Right venous Doppler: No DVT Continue IV ceftriaxone (first day 12/30), MRSA negative Blood cultures: No growth at 48 hours PT/OT -OT recommending rehab, PT recommending home -At this time patient does not want any sort of therapy whether that be in a facility at his home or a outpatient facility -encouraged to reconsider this CR P increased. Will trend in a.m. with CBC (2) Coronary artery disease: Plan: hx of CABG Continue clopidogrel, metoprolol, lisinopril, atorvastain (3) Depression: Plan: Continue sertraline and Wellbutrin (4) BPH (benign prostatic hyperplasia): Plan: Continue tamsulosin and finasteride (5) GERD (gastroesophageal reflux disease): Plan: Switch omeprazole to pantoprazole per hospital formulary (6) Hypertension: Plan: Continue metoprolol, lisinopril, hydralazine (7) H/O: stroke with residual effects: Plan: residual right sided weakness Patient reported to therapist that he was falling multiple times a day, discussed this with daughter and states that there is 1 day last week that he fell 3 times and prior to that 1 other fall the week before. Before that last fall was Thanksgiving. Does report that [place] get [place] powered [place] through [place], however Samson declined this Plan VTE Prophylaxis - Lovenox 40mg SQ daily Disposition - continued inpatient stay Daughter updated by phone again today Admission and Anticipated Discharge Date Admission Date: December 31, 2023 Subjective Patient seen sitting at the side of the bed after lunch. States that he is feeling better and anxious to get back home. When I discussed rehab with them he stated that he does not see the point in doing any sort of therapy because while he ever leaves the house for his to go to doctors appointments Does not have a lot of things he enjoys anymore as he can no longer drive or use his typewriter Patient thinks he will think about attending rehab or having home health come in Review of Systems Review of Systems: All systems reviewed & are unremarkable except as noted in Subjective Physical Exam Physical Exam: General: NAD, sitting on the bed VS as above HEENT: poor dentition, missing multiple teeth Resp: normal respiratory effort, lungs clear to auscultation CV: RRR, no murmur, Extremities: erythema to b/l LE, right significantly worse than left. Redness exceeding lines drawn on 12/29 but appears improved from yesterday. Area just below lateral right knee with the most erythema and mild warmth Neuro: A&O x3, Results & Data Results & Data Vital Signs (Past 12 Hours) Vital Signs Temp Pulse Resp BP BP Pulse Ox O2 Del Method 01/02/24 14:11 36.6 C 62 16 122/73 97 Room Air 01/02/24 07:11 36.5 C 69 20 115/72 97 Room Air Laboratory Results CBC and CRP reviewed PG Care Time/CCT Total # of Minutes Spent Total Time Spent with Patient: Total time spent is greater than 50% in coordination of care (as documented) at patient's floor/unit and/or counseling patient: Coding Level of Care Code 93439 SUB INP/OBS CARE 3/50MIN Diagnoses Cellulitis of right leg L03.115 Coronary artery disease I25.10 Depression F32.9 BPH (benign prostatic hyperplasia) N40.0 GERD (gastroesophageal reflux disease) K21.9 Hypertension I10 H/O: stroke with residual effects I69.30
[2024-01-03 08:04] LABS: Basophils # (auto) 0.06 K/uL (0.00-0.20); Basophils % (auto) 0.9 %; Eosinophils # (auto) 0.48 K/uL (0.00-0.50); Hematocrit (blood only) 39.6 % (42.0-52.0); Hemoglobin 12.5 g/dl (14.0-18.0); Immature Granulocytes # (auto) 0.03 K/uL (0.01-0.20); Immature Granulocytes % (auto) 0.4 %; Lymphocytes # (auto) 1.42 K/uL (1.20-3.40); Lymphocytes % (auto) 20.7 %; Mean Corpuscular Hemoglobin 28.7 pg (25.0-34.0); Mean Corpuscular Hgb Conc 31.6 g/dL (32.0-36.0); Mean Corpuscular Volume 90.8 fL (80.0-100.0); Mean Platelet Volume 9.6 fL (9.4-12.4); Monocytes # (auto) 0.71 K/uL (0.11-0.59); Monocytes % (auto) 10.4 %; Neutrophils # (auto) 4.15 K/uL (1.40-6.50); Neutrophils % (auto) 60.6 %; Platelet Count 272 K/uL (130-400); RDW Standard Deviation 43.5 fL (36.4-46.3); Red Blood Count 4.36 M/uL (4.70-6.10); White Blood Count 6.85 K/ul (4.8-10.8)
[2024-01-03 08:34] LABS: C Reactive Protein 1.08 mg/dl (0-0.5); Creatinine Clr Calc Pharmacy 42.8 ml/min; Est GFR (African American) 53.7 ml/min; Est GFR (Non-African American) 46.4 ml/min
--- NOTE | 2024-01-03 14:06 | Discharge Summary ---
Discharge Summary Date of Service January 03, 2024 Notes For Next Care Provider Admitted for cellulitis that failed outpatient Keflex. Improved with IV ceftriaxone received 4 doses while inpatient. Discharged with cefadroxil PT OT recommending rehab with home health therapy but patient declined both blood cultures pending Medication Changes From Visit cefadroxil twice daily Admission HPI Per Admitting Provider Samson Romero is an 88 year old male who present so the ER with lower leg erythema and swelling. He reports this may have been ongoing for the last 6 weeks although he didn't tell anyone about it. He has a history of stroke and right sided weakness with frequent falls. He fell on Monday and his daughter saw him on this occasion and noticed his leg for the first time therefore [facility] and [facility] Kef[facility]. Despite this the redness has continued to spread up his leg beyond the drawn markings above his knee posteriorly. Given it has continued to get worse she brought him to the ER today. No fever or chills. He reports having multiple wounds on his legs chronically. His balance is worse with the current infection. Principal Dx & Hospital Course #1 = Principal Diagnosis (1) Cellulitis of right leg: Failed outpatient PO Keflex Right lower extremity arterial Doppler: Mild plaque, no significant stenosis Right venous Doppler: No DVT Continue IV ceftriaxone (first day 12/30), MRSA negative. discharged on cefadroxil twice daily Blood cultures: No growth at 48 hours PT/OT -OT recommending rehab, PT recommending home -At this time patient does not want any sort of therapy whether that be in a facility at his home or a outpatient facility CRP downtrending discharged home today (2) Coronary artery disease: hx of CABG Continue clopidogrel, metoprolol, lisinopril, atorvastain (3) Depression: Continue sertraline and Wellbutrin (4) BPH (benign prostatic hyperplasia): Continue tamsulosin and finasteride (5) GERD (gastroesophageal reflux disease): Switch omeprazole to pantoprazole per hospital formulary (6) Hypertension: Continue metoprolol, lisinopril, hydralazine (7) H/O: stroke with residual effects: residual right sided weakness Patient reported to therapist that he was falling multiple times a day, discussed this with daughter and states that there is 1 day last week that he fell 3 times and prior to that 1 other fall the week before. Before that last fall was Thanksgiving.Does report that was trying to get a powered wheelchair [facility], however Samson declined this patient declined any sort of therapy - inpatient outpatient or home health Plan dispo: Discharge to home today Daughter updated by phone prior to discharge Discharge Exam General: NAD, sitting on the bed VS as above HEENT: poor dentition, missing multiple teeth Resp: normal respiratory effort, lungs clear to auscultation CV: RRR, no murmur, Extremities: erythema greatly improved Neuro: A&O x3, Updated Medication List Medication Instructions Recorded Confirmed Type clopidogrel 75 mg tablet 75 mg PO QAM 08/15/18 12/31/23 History metoprolol tartrate 50 mg tablet 50 mg PO BID 08/15/18 12/31/23 History finasteride 5 mg tablet 5 mg PO HS 04/03/19 12/31/23 History bupropion HCl 200 mg tablet,12 hr 200 mg PO DAILY #30 ea 09/16/19 12/31/23 Rx sustained-release sertraline 100 mg tablet 100 mg PO HS 04/29/21 12/31/23 History omeprazole 20 mg capsule,delayed 20 mg PO QAM 06/08/21 12/31/23 History release multivitamin 1 tab PO DAILY 08/04/21 12/31/23 History tamsulosin 0.4 mg capsule (Flomax) 0.4 mg PO HS #30 caps 08/06/21 12/31/23 Rx atorvastatin 40 mg tablet 40 mg PO HS 06/08/22 12/31/23 History magnesium oxide 420 mg tablet 420 mg PO HS 10/31/22 12/31/23 History amlodipine 5 mg tablet 5 mg PO BID 11/10/22 12/31/23 History lisinopril 20 mg tablet 20 mg PO BID 05/06/23 12/31/23 History docusate sodium 50 mg capsule 50 mg PO BID 11/14/23 12/31/23 History topiramate 100 mg tablet 100 mg PO HS 11/14/23 12/31/23 History hydralazine 50 mg tablet 50 mg PO BID 12/31/23 12/31/23 History cefadroxil 500 mg capsule 500 mg PO BID #20 caps 01/03/24 Rx Hospital Stay Data Consultations 12/31/23 17:04 ED Decision to Admit Stat Diagnostic Imagining Performed Duplex Scan Lower Extremity Artery 12/31/23 13:09 RIGHT LOWER EXTREMITY ARTERIAL DOPPLER ULTRASOUND CLINICAL HISTORY: swelling, redness, cyanosis COMPARISON STUDY: Right lower extremity arterial Doppler ultrasound May 07, 2023. TECHNIQUE: Grayscale, color and duplex Doppler sonography of the arterial system of the right lower extremity was performed. FINDINGS: Mild calcified atherosclerotic plaque within the right lower extremity is noted. No elevated velocities were identified. Biphasic flow was noted within the right common femoral and superficial femoral arteries. There was monophasic flow within the right popliteal, posterior tibial, anterior tibial, peroneal and dorsalis pedis vessels. The vessels were patent. IMPRESSION: 1. Mild atherosclerotic plaque within the right lower extremity. No sonographic evidence for a hemodynamically significant stenosis. 2. Monophasic flow within the right calf vessels. ACT 112: Negative or not required by law. Electronically signed by: Cm Soto M.D. 12/31/2023 3:35 PM Venous Doppler Study 12/31/23 13:09 RIGHT LOWER EXTREMITY VENOUS DOPPLER CLINICAL HISTORY: swelling, redness COMPARISON STUDY: Right lower extremity venous Doppler ultrasound May 07, 2023. TECHNIQUE: Sonography of the deep venous system of the right lower extremity was performed. Compression and augmentation were evaluated. FINDINGS: The right common femoral, superficial femoral and popliteal veins were compressible. Augmentation was normal. Flow was shown within the deep calf vessels. IMPRESSION: No evidence of deep venous thrombus within the right lower extremity. ACT 112: Negative or not required by law. Electronically signed by: Cm Soto M.D. 12/31/2023 3:31 PM Pending Results Patient Have Any Pending Studies at Discharge: Yes ( blood cultures) Discharge Instructions Given to Patient (Per Discharging Provider) Mr. Romero, you were hospitalized after your cellulitis got worse on oral antibiotics. It improved here with IV antibiotics and you will be discharged with an extended course of oral antibiotics. It is very important that you keep your legs clean and dry, also would elevate them when you are seated or laying in bed. You will be discharged on cefadroxil take this twice a day for the next 10 days. we aaliyah blood cultures on admissionthese are negative at 48 hours, however they take 5 days to get the final result. Your PCP should be able to update you with the final result. you were seen by the physical therapist and occupational therapist that recommended you have some sort of rehabilitation, however you declined this. If you change your mind and are agreeable to participating in any physical therapy or occupational therapy your primary care provider can arrange this for you. there were no changes to your home medications Activity: You can do normal everyday activities as your body allows. Take rest breaks if you feel tired. Do not overexert. Stop activity if you have pain, shortness of breath or feel dizzy. Follow-up appointments: Make an appointment with your primary care physician within one week of discharge. A copy of this summary will be sent to them. Every time you see your primary care physician, or any other doctor, bring your medication list, and a list of questions. CONTACT YOUR PRIMARY CARE PROVIDER if you experience any of the following: Shortness of breath or difficulty breathing Fevers or chills Feeling tired with normal activity or experiencing dizziness or fainting Difficulty following your treatment plan, or difficulty taking medications CALL 911 OR GO TO THE EMERGENCY DEPARTMENT if you experience any of the following: Severe abdominal pain or nausea/vomiting Severe chest pain, or chest pain that radiates (moves) to your jaw or arm Sudden, severe shortness of breath or difficulty breathing Thank you for allowing us to participate in your care. Total Time Total Time Spent Total Time Spent (In Minutes): Time spend day of discharge 40 minutes including direct patient care, medication reconciliation, documentation, review of labs and images, and coordination of care. Supervising Physician Co-Signing Physician Notes During face to face encounter, I obtained a brief physical examination, discussed hospital stay with patient and discharge instructions with patient. I discussed discharge plan of care with DURAN Hall. I reviewed above note and agree with it except for the following: Patient failed outpatient therapy. Symptoms improved on IV antibiotics, ceftriaxone, will discharge on cefadroxil Coding Level of Care Code 15868 INP/OBS DISCH >30 MIN Diagnoses Cellulitis of right leg L03.115 Coronary artery disease I25.10 Depression F32.9 BPH (benign prostatic hyperplasia) N40.0 GERD (gastroesophageal reflux disease) K21.9 Hypertension I10 H/O: stroke with residual effects I69.30
== END 2024-01-03 17:18 | disposition home or self-care (01) | DRG 603 ==
LOC: 3W 12:41 → ED 12:41 → SUATTDRO 16:41 → 3W 17:00
DX: I11.0 Hypertensive heart disease with heart failure; I25.2 Old myocardial infarction; L03.115 Cellulitis of right lower limb; K59.09 Other constipation; K21.9 Gastro-esophageal reflux disease without esophagitis; I50.9 Heart failure, unspecified; Z79.02 Long term (current) use of antithrombotics/antiplatelets; F41.9 Anxiety disorder, unspecified; I25.10 Atherosclerotic heart disease of native coronary artery without angina pectoris; R73.03 Prediabetes; Z91.81 History of falling; N40.0 Benign prostatic hyperplasia without lower urinary tract symptoms; Z88.8 Allergy status to other drugs, medicaments and biological substances; I69.351 Hemiplegia and hemiparesis following cerebral infarction affecting right dominant side; Z79.899 Other long term (current) drug therapy; Z95.1 Presence of aortocoronary bypass graft; Z87.891 Personal history of nicotine dependence; Z88.2 Allergy status to sulfonamides; G47.30 Sleep apnea, unspecified; Z88.6 Allergy status to analgesic agent; E78.5 Hyperlipidemia, unspecified; Z91.040 Latex allergy status; R29.6 Repeated falls; F32.A Depression, unspecified